=== PATIENT | male | born 1985 | race Caucasian/White ===

== ENCOUNTER 2019-12-06 01:02 | Emergency (ER) | payer MEDICAID, SELFPAY ==
[2019-12-06 01:05] VITALS: BP 134/96; PULSE 107; RESP 17; O2SAT 97; BMI 27.3
[2019-12-06 01:37] VITALS: BP 134/96; PULSE 116; RESP 19; O2SAT 99
--- NOTE | 2019-12-06 02:05 | ED_ITS ---
HPI - Back Pain/Injury General: Chief Complaint: Back Pain/Injury Stated Complaint: BACK PAIN POST FALL Time Seen by Provider: 12/06/19 01:35 History of Present Illness: HPI Narrative: Patient is a 34-year-old male comes to the ED with back pain. He says that a week ago he fell back and hit his lower back on a wooden railroad tie. States it's been sore ever since he needs taken ibuprofen and Tylenol is not helping. Denies any loss of sensation in the pelvic region or any bowel incontinence. He is able to walk and move around to the pain that shoots down both legs. Denies chest pain, shortness of breath, nausea, vomiting, abdominal pain, bowel symptoms, urine symptoms or weakness to extremities Review of Systems General: Reports: 10 or more systems reviewed and unremarkable except in HPI and below PFSH ED PFSH: Statuses (acute, chronic, etc) shown below reflect problem list status as previously entered and may not be historically accurate Social History Smoking and tobacco status: current every day smoker Physical Exam Narrative: EXAM NARRATIVE: Patient is a 34-year-old male who is showing no signs of acute distress or pain and is sitting comfortably in the bed upon entering the exam room. He was even able to ambulate. Const: COMMON NORMALS: oriented x3 HENMT: COMMON NORMALS: normocephalic HEAD & SCALP: normocephalic MOUTH: oral and palatal mucosa normal THROAT: posterior oropharynx normal and uvula midline Neck/C-Spine: COMMON NORMALS: supple GENERAL: Yes normal visual inspection Resp: COMMON NORMALS: normal respiratory effort, no retractions, no use of accessory muscles and clear to auscultation bilaterally AUSCULTATION: clear to auscultation bilaterally Cardio: COMMON NORMALS: regular rate, regular rhythm, S1 normal heart sound, S2 normal heart sound, no gallops, no clicks, no murmurs and peripheral pulses 2+ throughout RATE: regular rate RHYTHM: regular rhythm HEART SOUNDS: S1 normal and S2 normal PERIPHERAL PULSES: pulses 2+ throughout GI: COMMON NORMALS: normal to inspection, nondistended, normoactive bowel sounds, soft to palpation, non-tender and no masses PALPATION: Yes soft : COMMON NORMALS: Yes no CVA tenderness BLADDER/KIDNEY EXAM: Yes no CVA tenderness Back/Pelvis: COMMON NORMALS: no CVA tenderness LUMBAR SPINE/LOWER BACK: Yes lumbar spinal tenderness, Yes paraspinal muscle tenderness and Yes straight leg raise negative bilaterally Extremity: COMMON NORMALS: normal to inspection Neuro: COMMON NORMALS: oriented x3 and moves all extremities GAIT: Yes normal gait Course Vital Signs: Vital signs: Vital Signs Pulse Rate 99 12/06/19 03:17 Respiratory Rate 18 12/06/19 03:17 Blood Pressure 124/85 12/06/19 03:17 Pulse Oximetry 96 12/06/19 03:17 MDM - Back Pain/Injury Lab Data: Attestation: I reviewed the patient's lab results. Labs: Lab Results 12/06/19 Range/Units 01:47 Ammonia 55 (16-60) umol/L Imaging Data^: Xray Ortho: Attestation: I personally reviewed and interpreted this imaging study as follows: My impression: No acute fracture seen. Pending final radiology report. Radiologist's impression: [address] [address] XRay Report Signed Patient: Mick Smith Unit #: [id number] : 1985 Age/Sex: 34 / M ADM Date: 12/06/19 Loc: ER Room/Bed: Attending Dr: Ordering Provider/Ordering MD: Crow Tubbs Date of Service: 12/06/19 Procedure(s): XR lumbar spine 2-3V* 47120 Accession Number(s): [id number] Report Number: [id number] WS: [id number] LUMBAR SPINE: 3 VIEWS TECHNIQUE: AP, lateral and L5-S1 spot. HISTORY: injury with back pain COMPARISON: 06/11/2019 L5 anterolisthesis by 13 mm is similar to the prior study. Patient has a known grade 1 spondylolisthesis and spondylolysis at L5. 5 mm retrolisthesis of L3 and L4. Similar to the prior study. No acute fractures. Partial lumbarization of S1 on the LEFT. Mild disc space narrowing at L5-S1. Transitional S1 vertebrae. SI joints are symmetric bilaterally. No soft tissue abnormalities. XR/XR lumbar spine 2-3V* 52930 IMPRESSION: 1. Grade 1 spondylolisthesis of L5 on S1 and spondylolysis of L5 are stable and similar to 06/11/2019. 2. Transitional S1 vertebrae. 3. No acute fracture. Discharge Plan Discharge Patient Disposition: Home, Self-Care Clinical Impression: Lumbar back pain Condition: Stable Prescriptions: New ibuprofen 600 mg tablet 600 mg PO Q8H PRN (Reason: pain) Qty: 30 RF: 0 Robaxin-750 750 mg tablet 750 mg PO Q8H Qty: 20 RF: 0 No Action Depakote 500 mg Tablet,Delayed Release (Dr/Ec) 500 mg PO BID RF: 0 Risperdal 3 mg Tablet 3 mg PO BID RF: 0 alprazolam 0.5 mg Tablet 0.5 mg PO QID RF: 0 temazepam 30 mg Capsule 30 mg PO DAILY RF: 0 Protonix 40 mg Tablet,Delayed Release (Dr/Ec) 40 mg PO BID RF: 0 lisinopril 10 mg Tablet 10 mg PO BID RF: 0 ProAir HFA 90 mcg/actuation Hfa Aerosol Inhaler 2 puff INHALATION Q6H PRN (Reason: Shortness Of Breath) RF: 0 atenolol 50 mg Tablet 50 mg PO BID RF: 0 Vyvanse 20 mg Capsule 20 mg PO DAILY RF: 0 Discharge Orders: Discharge Order (Routine); Ordered 12/06/19 Ordered By: Crow Tubbs Referrals: [facility] [Other] Yamile Marsh DO [Primary Care Provider] - Discharge Diet: Regular Discharge Activity: Increase activity as tolerated Activity Restrictions/Additional Instructions: Follow-up with their primary care doctor in 7 days for reevaluation. Take ibuprofen As prescribed as needed for pain and inflammation. Take Robaxin as prescribed at night to help with back pain and comfort while sleeping. Robaxin can Be sedating/sleepy, so taking it at night before bed. Place ice and/or warm compress on back to help with symptoms. 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
--- NOTE | 2019-12-06 02:11 | XR_ITS ---
WS: [id number] LUMBAR SPINE: 3 VIEWS TECHNIQUE: AP, lateral and L5-S1 spot. HISTORY: injury with back pain COMPARISON: 06/11/2019 L5 anterolisthesis by 13 mm is similar to the prior study. Patient has a known grade 1 spondylolisthe sis and spondylolysis at L5. 5 mm retrolisthesis of L3 and L4. Similar to the prior study. No acute f ractures. Partial lumbarization of S1 on the LEFT. Mild disc space narrowing at L5-S1. Transitional S1 vertebrae. SI joints are symmetric bilaterally. No soft tissue abnormalities. XR/XR lumbar spine 2-3V* 46892 IMPRESSION: 1. Grade 1 spondylolisthesis of L5 on S1 and spondylolysis of L5 are stable an d similar to 06/11/2019. 2. Transitional S1 vertebrae. 3. No acute fracture.
[2019-12-06 02:17] LABS: Ammonia 55 umol/L (16-60)
[2019-12-06] MEDS: HYDROcodone-acetaminophen 5-325 mg Tablet 1 TAB PO (02:25)
[2019-12-06] MEDS: orphenadrine 30 mg/mL Inj 2 mL 60 MG IM (02:44)
[2019-12-06 03:17] VITALS: BP 124/85; PULSE 99; RESP 18; O2SAT 96
== END 2019-12-06 03:18 | disposition home or self-care (01) ==
PROVIDERS: Emergency Provider Physician Assistant; PCP Family Medicine
DX: M54.5 Low back pain (principal); F17.210 Nicotine dependence, cigarettes, uncomplicated
CPT/HCPCS: 36415; 72100; 82140; 96372; 99281; J2360

== ENCOUNTER 2019-12-18 03:45 | Emergency (ER) | payer MEDICAID, SELFPAY ==
[2019-12-18 03:46] VITALS: BP 119/87; PULSE 101; RESP 16; TEMP 37; O2SAT 97; BMI 27.8
--- NOTE | 2019-12-18 03:47 | ED_ITS ---
Entered by Angy Andino, acting as scribe for Chanda Fonseca MD HPI - Male Genitourinary General: Chief complaint: Urogenital-Male Stated complaint: Back Pain, Kidney issues Time Seen by Provider: 12/18/19 03:45 Source: patient and EMS Mode of arrival: EMS History of Present Illness: HPI Narrative: 34 y/o male presents to the ED with complaint of painful urination. Pt states he ate some undercooked chicken, 8 hours ago and has had V/D. Pt states those symptoms have nearly subsided but he would like his kidneys evaluated since his back hurts. Complaint: dysuria Onset (ago): hour(s) Duration: improved Location: right flank and left flank Severity: mild Quality: burning Exacerbating factors: urination Associated symptoms: Reports dysuria and vomiting Review of Systems Const: Denies: fever, chills, body aches or change in appetite Eyes: Denies: blurry vision or eye discomfort ENMT: Denies: throat pain or dental pain Card: Denies: chest pain Resp: Denies: shortness of breath GI: Reports: vomiting and diarrhea : Reports: painful urination Musc: Reports: back pain; Denies: neck pain Skin/Breast: Denies: rash Neuro: Denies: headache Psych: Denies: depression Maxwell/Lymph: Denies: easy bruising All/Imm: Denies: hives PFSH ED PFSH: Statuses (acute, chronic, etc) shown below reflect problem list status as previously entered and may not be historically accurate Social History Smoking and tobacco status: current every day smoker Physical Exam Const: COMMON NORMALS: no apparent distress and oriented x3 HENMT: COMMON NORMALS: normocephalic and head/scalp atraumatic HEAD & SCALP: normocephalic and atraumatic Eye: COMMON NORMALS: PERRL and EOMs intact bilaterally PUPIL: Yes PERRL Neck/C-Spine: COMMON NORMALS: full ROM and supple Chest: COMMONS NORMALS: inspection of chest normal and palpation of chest normal Resp: COMMON NORMALS: normal respiratory effort, no retractions, no use of accessory muscles and clear to auscultation bilaterally AUSCULTATION: clear to auscultation bilaterally Cardio: COMMON NORMALS: regular rate, regular rhythm and no murmurs RATE: regular rate RHYTHM: regular rhythm GI: COMMON NORMALS: normal to inspection, nondistended, normoactive bowel sounds, soft to palpation, non-tender and no masses PALPATION: Yes soft Extremity: COMMON NORMALS: normal to inspection and full ROM Neuro: COMMON NORMALS: oriented x3, moves all extremities and no focal motor deficits Psych: COMMON NORMALS: cooperative and speech normal SPEECH: Yes normal speech Skin: COMMON NORMALS: no rashes or lesions noted and no wounds GENERAL SKIN EXAM: no rashes or lesions noted Course Vital Signs: Vital signs: Vital Signs Temperature 98.6 F 12/18/19 03:46 Pulse Rate 101 H 12/18/19 03:46 Respiratory Rate 16 12/18/19 03:46 Blood Pressure 119/87 12/18/19 03:46 Pulse Oximetry 97 12/18/19 03:46 MDM - Male MDM Narrative: Medical decision making narrative: Patient presents here with vomiting and diarrhea. Patient had some flank pain and urinalysis and electrolytes are normal. Patient is well-appearing here and has no signs of acute surgical cause for his pain. Patient prescribed Zofran and he is stable for discharge. He is to follow-up with his primary care doctor in 3 to 5 days and return if worsening. Lab Data: Labs: Lab Results 12/18/19 12/18/19 Range/Units 03:55 04:04 Sodium 136 (136-145) mmol/L Potassium 4.1 (3.5-5.1) mmol/L Chloride 99 (98-107) mmol/L Carbon Dioxide 26 (22-29) mmol/L Anion Gap 15.1 (5-19) BUN 6 (6-20) mg/dL Creatinine 0.6 L (0.7-1.2) mg/dL GFR Calculation 155.2 H (90-130) mL/min Glucose 113 H (74-109) mg/dL Calculated Osmolal ity 279 L (285-295) mOsm/k g Calcium 9.3 (8.5-10.5) mg/dL Urine Color Yellow (Yellow) Urine Appearance Clear (CLEAR) Urine pH 8 H (5-7) Ur Specific Gravit y 1.015 (1.005-1.030) Urine Protein Neg (Negative) Urine Glucose (UA) Norm (Normal) Urine Ketones Negative (Negative) Urine Occult Blood Neg (Negative) Urine Nitrate Negative (Negative) Urine Bilirubin Neg (NEGATIVE) Prot Sulfosalicyli c Acd Negative Urine Urobilinogen Norm (Negative) mg/dL Ur Leukocyte [place] ase Negative (Negative) Discharge Plan Discharge Patient Disposition: Home, Self-Care Clinical Impression: Vomiting, Diarrhea Condition: Stable Prescriptions: New Zofran 4 mg tablet 4 mg PO QID PRN (Reason: nausea and vomiting) Qty: 14 RF: 0 No Action divalproex [Depakote] 500 mg Tablet,Delayed Release (Dr/Ec) 500 mg PO BID RF: 0 risperidone [Risperdal] 3 mg Tablet 3 mg PO BID RF: 0 alprazolam 0.5 mg Tablet 0.5 mg PO QID RF: 0 temazepam 30 mg Capsule 30 mg PO DAILY RF: 0 pantoprazole [Protonix] 40 mg Tablet,Delayed Release (Dr/Ec) 40 mg PO BID RF: 0 lisinopril 10 mg Tablet 10 mg PO BID RF: 0 albuterol sulfate [ProAir HFA] 90 mcg/actuation Hfa Aerosol Inhaler 2 puff INHALATION Q6H PRN (Reason: Shortness Of Breath) RF: 0 atenolol 50 mg Tablet 50 mg PO BID RF: 0 Vyvanse 20 mg Capsule 20 mg PO DAILY RF: 0 ibuprofen 600 mg tablet 600 mg PO Q8H PRN (Reason: pain) Qty: 30 RF: 0 methocarbamol [Robaxin-750] 750 mg tablet 750 mg PO Q8H Qty: 20 RF: 0 Discharge Orders: Discharge Order (Routine); Ordered 12/18/19 Ordered By: Chanda Fonseca Referrals: [facility] [Other] Yamile Marsh DO [Primary Care Provider] - 4-7 days Discharge Diet: Advance as tolerated Discharge Activity: Resume usual activity Patient Instructions: Gastroenteritis (ED) Coding Level of Care Code ED Stock Roller for Chg Fwd Exam Problem Focused The documentation recorded by the Sina genao Ashley, accurately reflects the service I personally performed and the decisions made by Raymundo ramirez Korby, MD Dec 18, 2019 03:45
[2019-12-18] MEDS: diphenoxylate/atropine Tablet 1 TAB PO (04:04)
[2019-12-18] MEDS: ondansetron 4 MG Tablet PO (04:04)
[2019-12-18 04:28] LABS: Specific Gravity, Urine 1.015 (1.005-1.030); Urine Appearance Clear (CLEAR); Urine Color Yellow (Yellow); pH Urine 8 (5-7)
[2019-12-18 04:29] LABS: Bilirubin Urine Neg (NEGATIVE); Blood Urine Neg (Negative); Glucose Urine UA Norm (Normal); Ketones Urine Negative (Negative); Leukocyte Esterase Urine Negative (Negative); Nitrate Urine Negative (Negative); Protein Urine Neg (Negative); Sulfosalicylic Acid Urine Negative; Urobilinogen Urine Norm (Negative)
[2019-12-18 04:32] LABS: Anion Gap 15.1 (5-19); Blood Urea Nitrogen 6 mg/dL (6-20); Calcium 9.3 mg/dL (8.5-10.5); Carbon Dioxide 26 mmol/L (22-29); Chloride 99 mmol/L (98-107); Glomerular Filtration Rate 155.2 mL/min (90-130); Glucose 113 mg/dL (74-109); Osmolality Calculated 279 mOsm/kg (285-295); Potassium 4.1 mmol/L (3.5-5.1); Sodium 136 mmol/L (136-145)
[2019-12-18] MEDS: acetaminophen 325 mg Tablet 650 MG PO (04:48)
[2019-12-18 04:56] VITALS: BP 119/78; PULSE 89; RESP 16; O2SAT 95
== END 2019-12-18 04:58 | disposition home or self-care (01) ==
PROVIDERS: Emergency Provider Emergency Medicine; PCP Family Medicine
DX: R11.10 Vomiting, unspecified (principal); R19.7 Diarrhea, unspecified; F17.200 Nicotine dependence, unspecified, uncomplicated
CPT/HCPCS: 36415; 80048; 81001; 99281; 99283; Q0162

== ENCOUNTER 2020-01-09 20:21 | Emergency (ER) | payer MEDICAID, SELFPAY ==
[2020-01-09 20:23] VITALS: BP 137/87; PULSE 102; RESP 18; TEMP 36.4; O2SAT 98; BMI 28.1
--- NOTE | 2020-01-09 20:30 | ED_ITS ---
Entered by Johanny Wray, acting as scribe for Laura Real MD HPI - Psych General: Chief Complaint: Psychiatric Symptoms Stated Complaint: SI/HEARING VOICES Time Seen by Provider: 01/09/20 20:28 Source: patient, EMS and RN notes reviewed Mode of arrival: EMS Limitations: no limitations History of Present Illness: HPI Narrative: 34 yo male presents to ED stating he is having auditory hallucinations and a headache. The patient denies suicidal ideation. The patient states his psychiatrist took the patient off of Risperdal and he began hearing voices. He said he has had problem with high ammonia levels in the past due to encephalopathy and when his ammonia gets high, he will have severe headaches. complaint: feels depressed Onset (ago): day(s) (3-4) Duration: constant History of same: Yes Relieving factors: medication Exacerbating factors: other (out of medication) Context: new medication(s) Associated psychiatric symptoms: auditory hallucinations Associated symptoms: Reports auditory hallucinations and other (headache) Treatments prior to arrival: none Review of Systems Neuro: Reports: headache Psych: Reports: auditory hallucinations PFSH ED PFSH: Social History Smoking and tobacco status: current every day smoker Physical Exam Const: COMMON NORMALS: no apparent distress, oriented x3, alert and well nourished HENMT: COMMON NORMALS: normocephalic and external nose normal HEAD & SCALP: normocephalic NOSE: external nose normal MOUTH: no trismus Eye: COMMON NORMALS: EOMs intact bilaterally and conjunctivae normal CONJUNCTIVA: Yes conjunctivae normal Neck/C-Spine: COMMON NORMALS: full ROM, no lymphadenopathy and supple CERVICAL SPINE: Yes cervical ROM normal Lymph: LYMPHATIC: no lymphadenopathy noted Resp: COMMON NORMALS: normal respiratory effort, no retractions, no use of accessory muscles and clear to auscultation bilaterally EFFORT & INSPECTION: Yes able to speak in complete sentences AUSCULTATION: clear to auscultation bilaterally Cardio: COMMON NORMALS: regular rate and regular rhythm RATE: regular rate RHYTHM: regular rhythm GI: COMMON NORMALS: normal to inspection, nondistended, normoactive bowel sounds, soft to palpation, non-tender and no masses INSPECTION: Yes normal to inspection AUSCULTATION: Yes normoactive bowel sounds PALPATION: Yes soft, No guarding and No rigid Back/Pelvis: OTHER: Normal range of motion Extremity: GENERAL: Yes normal exam except as noted Neuro: COMMON NORMALS: oriented x3 and CN's II-XII intact bilaterally SENSORIUM/ORIENTATION: Yes alert SPEECH: speech normal Psych: COMMON NORMALS: mental status grossly normal Skin: COMMON NORMALS: no rashes or lesions noted GENERAL SKIN EXAM: no rashes or lesions noted MDM - Psych MDM Narrative: Medical decision making narrative: 34-year-old with history of auditory hallucinations that was taken off his Risperdal abruptly which resulted in increase hallucinations he is now back on the Risperdal after talking with poison control. He is not suicidal or homicidal he is not manic. He is medically stable alert and oriented and appropriately conversant. He does have at incidental headache and usually takes Fiorinal or Fioricet for that. I told him I am willing to write for a small amount but he needs to follow-up with his doctor for further treatment of his intermittent headaches. Lab Data: Attestation: I reviewed the patient's lab results. Labs: Lab Results 01/09/20 01/09/20 01/09/20 Range/Units 20:30 20:31 20:37 WBC 9.6 (4.0-10.0) 10^3/ uL RBC 4.57 (4.1-5.3) 10^6/u L Hgb 14.9 (11.7-16.6) g/dL Hct 42.1 (42.0-52.0) % MCV 92.1 (80-94) fL MCH 32.6 (28.0-34.0) pg MCHC 35.4 (30.0-36.0) g/dL RDW 11.9 L (12.1-15.1) % Plt Count 272 (130-400) 10^3/c mm MPV 9.0 (7.4-10.4) fL Neut % (Auto) 51.4 % Lymph % (Auto) 37.7 % [place] % (Auto) 7.5 % Eos % (Auto) 2.7 % Baso % (Auto) 0.4 % Neut # (Auto) 4.9 (1.8-7.7) 10^3/u L Lymph # (Auto) 3.6 (0.8-4.8) 10^3/u L [place] # (Auto) 0.7 (0.2-0.9) 10^3/u L Eos # (Auto) 0.3 (0.0-0.8) 10^3/u L Baso # (Auto) 0.0 (0.0-0.1) 10^3/u L Nucleated RBC % (a uto) 0 % Nucleated RBCs # 0.0 /100WBC Sodium 136 (136-145) mmol/L Potassium 3.7 (3.5-5.1) mmol/L Chloride 98 (98-107) mmol/L Carbon Dioxide 24 (22-29) mmol/L Anion Gap 17.7 (5-19) BUN 7 (6-20) mg/dL Creatinine 0.6 L (0.7-1.2) mg/dL GFR Calculation 155.2 H (90-130) mL/min Glucose 99 (65-115) mg/dL Calcium 9.9 (8.5-10.5) mg/dL Total Bilirubin 0.6 (0.15-1.2) mg/dL AST 40 (0-40) U/L ALT 72 H (0-41) U/L Alkaline Phosphata se 82 (40-130) IU/L Ammonia 33 (16-60) umol/L Total Protein 7.5 (6.6-8.7) g/dL Albumin 4.6 (3.5-5.2) g/dL Globulin 2.9 (1.3-4.6) g/dL Ethyl Alcohol < 10 (0-10) mg/dL Discharge Plan Discharge Patient Disposition: Home, Self-Care Clinical Impression: Auditory hallucinations Headache Qualifiers: Headache type: unspecified Headache chronicity pattern: unspecified pattern Intractability: not intractable Qualified Code(s): R51 - Headache Condition: Stable Prescriptions: New xumznbtqbj-ijdxjteulb-itg-cod [id number] mg capsule 1 cap PO Q4H PRN (Reason: pain) Qty: 7 RF: 0 No Action divalproex [Depakote] 500 mg Tablet,Delayed Release (Dr/Ec) 500 mg PO BID RF: 0 risperidone [Risperdal] 3 mg Tablet 3 mg PO BID RF: 0 alprazolam 0.5 mg Tablet 0.5 mg PO QID RF: 0 temazepam 30 mg Capsule 30 mg PO DAILY RF: 0 pantoprazole [Protonix] 40 mg Tablet,Delayed Release (Dr/Ec) 40 mg PO BID RF: 0 lisinopril 10 mg Tablet 10 mg PO BID RF: 0 albuterol sulfate [ProAir HFA] 90 mcg/actuation Hfa Aerosol Inhaler 2 puff INHALATION Q6H PRN (Reason: Shortness Of Breath) RF: 0 atenolol 50 mg Tablet 50 mg PO BID RF: 0 Vyvanse 20 mg Capsule 20 mg PO DAILY RF: 0 ibuprofen 600 mg tablet 600 mg PO Q8H PRN (Reason: pain) Qty: 30 RF: 0 methocarbamol [Robaxin-750] 750 mg tablet 750 mg PO Q8H Qty: 20 RF: 0 ondansetron HCl [Zofran] 4 mg tablet 4 mg PO QID PRN (Reason: nausea and vomiting) Qty: 14 RF: 0 Referrals: [facility] [Other] Yamile Marsh DO [Primary Care Provider] - Patient Instructions: Headache Coding Level of Care Code ED Clinical Research Management Associate for Chg Fwd Exam Comprehensive The documentation recorded by the Nils genao Valerie R, accurately reflects the service I personally performed and the decisions made by Farhan ramirez Megan, MD Jan 09, 2020 20:21
[2020-01-09 20:43] LABS: Basophils % 0.4 %; Eosinophils # 0.3 10^3/uL (0.0-0.8); Eosinophils % 2.7 %; Hematocrit 42.1 % (42.0-52.0); Hemoglobin 14.9 g/dL (11.7-16.6); Lymphocytes # 3.6 10^3/uL (0.8-4.8); Lymphocytes % 37.7 %; Mean Corpuscular HGB Conc 35.4 g/dL (30.0-36.0); Mean Corpuscular Hemoglobin 32.6 pg (28.0-34.0); Mean Corpuscular Volume 92.1 fL (80-94); Monocytes # 0.7 10^3/uL (0.2-0.9); Monocytes % 7.5 %; Neutrophils # 4.9 10^3/uL (1.8-7.7); Neutrophils % 51.4 %; Nucleated Red Blood Cells % 0 %; Platelet Count 272 10^3/cmm (130-400); Red Blood Count 4.57 10^6/uL (4.1-5.3); Red Cell Distribution Width 11.9 % (12.1-15.1); White Blood Count 9.6 10^3/uL (4.0-10.0)
[2020-01-09 21:12] LABS: Ammonia 33 umol/L (16-60)
[2020-01-09 21:42] LABS: Alanine Aminotransferase 72 U/L (0-41); Albumin Level 4.6 g/dL (3.5-5.2); Alkaline Phosphatase 82 IU/L (40-130); Anion Gap 17.7 (5-19); Aspartate Amino Transferase 40 U/L (0-40); Blood Urea Nitrogen 7 mg/dL (6-20); Calcium 9.9 mg/dL (8.5-10.5); Carbon Dioxide 24 mmol/L (22-29); Chloride 98 mmol/L (98-107); Globulin 2.9 g/dL (1.3-4.6); Glomerular Filtration Rate 155.2 mL/min (90-130); Glucose 99 mg/dL (65-115); Potassium 3.7 mmol/L (3.5-5.1); Sodium 136 mmol/L (136-145); Total Bilirubin 0.6 mg/dL (0.15-1.2); Total Protein 7.5 g/dL (6.6-8.7)
[2020-01-09 21:45] LABS: Alcohol Level < 10 mg/dL (0-10)
[2020-01-09 22:05] VITALS: RESP 18
[2020-01-09] MEDS: morphine 4 mg/mL SDV 1 mL IM (22:05)
[2020-01-09 22:21] VITALS: BP 137/87; PULSE 100; RESP 18; TEMP 36.7; O2SAT 98
== END 2020-01-09 22:22 | disposition home or self-care (01) ==
PROVIDERS: Emergency Provider Emergency Medicine; PCP Family Medicine
DX: R44.0 Auditory hallucinations (principal); R51 Headache; F17.200 Nicotine dependence, unspecified, uncomplicated
CPT/HCPCS: 36415; 80053; 80307; 82140; 85025; 96372; 99284; J2270

== ENCOUNTER 2020-01-17 15:40 | Outpatient (CLI) | payer MEDICAID, SELFPAY ==
--- NOTE | 2020-01-17 15:49 | CT_ITS ---
WS: [id number] CT CERVICAL SPINE TECHNIQUE: Noncontrast CT of the cervical spine with coronal and sagittal reformatted images. CLINICAL INFORMATION: INTERVERTEBRAL DISC DISORDER COMPARISON: CT January 14, 2011 DLP: 1661.[address] scans at [facility] use at least one of these dose optimization techniques: automat ed exposure control; mA and/or kV adjustment per patient size (includes targeted exams where dose is matched to clinical indication); or iterative reconstruction. FINDINGS: Straightening of the normal cervical lordosis. Prior postoperative changes anterior cervical fusion w ith interbody fusion C5-C6. Subsidence along the interbody fusion graft. No evidence of hardware loos ening. C2-C3: Normal. C3-C4: Mild facet arthropathy. Mild bilateral bony foraminal narrowing. Spinal canal is patent. C4-C5: Mild facet arthropathy. Spinal canal and foramen are patent. C5-C6: ACDF. Subsidence along the interbody fusion graft. Mild right and no significant left foramina l narrowing. Mild facet arthropathy. C6-C7: Disc osteophytic ridging. Spinal canal is patent. Mild left and no significant right foraminal narrowing. Mild facet arthropathy. C7-T1: Mild bilateral bony foraminal narrowing. Spinal canal is patent. Visualized posterior nasopharynx: Normal. Prevertebral soft tissues: Normal. CT/CT cervical spin wo con* [id number] IMPRESSION: 1. Straightening of the normal cervical lordosis. 2. Prior postoperative changes ACDF C5-C6. Subsidence along the interbody fusi on graft. No significant bony bridging beyond the confines of the graft. 3. No evidence of hardware loosening. Hardware appears in good position. 4. Mild bony foraminal narrowing described above worse at right C5-C6 and left C6-C7.
--- NOTE | 2020-01-17 15:49 | CT_ITS ---
WS: [id number] CT LUMBAR SPINE TECHNIQUE: Noncontrast CT of the lumbar spine with coronal and sagittal reformatted images. CLINICAL INFORMATION: INTERVERTERAL DISC DISORDER COMPARISON: MRI July 18, 2019 DLP: 1895.[address] scans at [facility] use at least one of these dose optimization techniques: automat ed exposure control; mA and/or kV adjustment per patient size (includes targeted exams where dose is matched to clinical indication); or iterative reconstruction. FINDINGS: Stable grade 1 anterolisthesis L5 on S1 with bilateral spondylolysis. Mild lumbar curve. No acute com pression fractures. L1-L2: Normal. L2-L3: Mild annular bulging. Spinal canal and foramen are patent. L3-L4: Mild annular bulging with mild central canal stenosis. Slight effacement of ventral thecal sac . Mild facet arthropathy. Foramen are patent. L4-L5: Mild disc bulging with a small shallow left pericentral protrusion. Mild central canal stenosi s. Slight narrowing of the left subarticular recess. Mild facet arthropathy. Mild left foraminal narr owing L5-S1: Stable grade 1 anterolisthesis. Bilateral chronic spondylolysis. Disc bulging eccentric to the left with slight effacement of ventral thecal sac. Severe bilateral foraminal narrowing left greater than right. Mild facet arthropathy. S1 is partially lumbarized. Visualized pelvic bony structures: Normal. Paravertebral soft tissues: Normal. CT/CT lumbar spine wo con* [id number] IMPRESSION: 1. Stable grade 1 anterolisthesis L5 on S1 with bilateral spondylolysis. 2. Mild central canal stenosis L3-4 with narrowing of the subarticular recess is unchanged. 3. Tiny left pericentral protrusion L4-5 with mild central canal stenosis and narrowing of the left subarticular recess. Mild left L4-5 foraminal narrowing. 4. Mild to moderate facet arthropathy L3-L4 and L4-L5. 5. Severe bilateral foraminal narrowing L5-S1
--- NOTE | 2020-01-17 15:50 | XR_ITS ---
WS: [id number] LUMBAR SPINE FLEXION AND EXTENSION TECHNIQUE: 3 views of the lumbar spine: Lateral neutral, flexion, and extension views. CLINICAL INFORMATION: INTERVERTEBRAL DISC DISORDER FINDINGS: Grade 1 anterolisthesis L5 on S1 measuring 12 mm in the neutral position. Chronic bilateral pars defe cts. This increases slightly on flexion to 14.6 mm and decreases on extension to 12.2 mm. Moderate to advanced facet arthropathy lower lumbar spine. S1 is partially lumbarized.. XR/XR lumbar spine f/e only [id number] IMPRESSION: 1. Mild instability L5-S1 with grade 1 anterolisthesis and bilateral spondylol ysis.
== END 2020-01-17 15:41 | disposition home or self-care (01) ==
LOC: RADWPI 15:46
PROVIDERS: PCP Family Medicine; Visit Provider Licensed Practical Nurse
DX: M51.17 Intervertebral disc disorders with radiculopathy, lumbosacral region (principal); M53.2X7 Spinal instabilities, lumbosacral region; M47.896 Other spondylosis, lumbar region; M48.061 Spinal stenosis, lumbar region without neurogenic claudication; M51.26 Other intervertebral disc displacement, lumbar region
CPT/HCPCS: 72120; 72125; 72131

== ENCOUNTER 2020-03-02 19:09 | Emergency (ER) | payer MEDICAID, SELFPAY ==
[2020-03-02 19:10] VITALS: BP 128/65; PULSE 91; RESP 16; TEMP 36.7; O2SAT 95; BMI 28.7
--- NOTE | 2020-03-02 19:20 | W.ED.GENADLT ---
HPI - General Adult General: Chief complaint: General Medical Stated complaint: med withdrawl Time Seen by Provider: 03/02/20 19:12 Source: patient and EMS Mode of arrival: EMS Limitations: no limitations History of Present Illness: HPI narrative: 34-year-old male who states he was fired by his PCP a couple weeks ago and is ran out of his codeine along with his Xanax and Vyvanse. He states he needs refills for all 3. Patient shows no withdrawal signs. He states that he feels anxious though without these medicines. Associated symptoms: Deny chest pain, dyspnea, headache(s), nausea, rash or vomiting Review of Systems Const: Denies: fever, chills, body aches or change in appetite Eyes: Denies: blurry vision or eye discomfort ENMT: Denies: throat pain or dental pain Card: Denies: chest pain Resp: Denies: shortness of breath GI: Denies: abdominal pain, nausea, vomiting or diarrhea : Denies: painful urination Musc: Denies: neck pain or back pain Skin/Breast: Denies: rash Neuro: Denies: headache Psych: Denies: depression Maxwell/Lymph: Denies: easy bruising All/Imm: Denies: hives PFSH ED PFSH: Medical History Intervertebral disc disorder with radiculopathy of lumbosacral region Spondylolisthesis, lumbosacral region Surgical History History of appendectomy History of fusion of cervical spine 2009 Dr. Beth Andino C5-C6 ACDFF History of knee surgery Family History Family/Other Heart disease Grandfather Dementia Social History Smoking and tobacco status: current every day smoker Alcohol intake: current Household members: spouse Marital status: Current occupational status: unemployed History of recent travel: No Physical Exam Const: COMMON NORMALS: no apparent distress, oriented x3 and healthy appearing HENMT: COMMON NORMALS: normocephalic and head/scalp atraumatic HEAD & SCALP: normocephalic and atraumatic Eye: COMMON NORMALS: PERRL and EOMs intact bilaterally PUPIL: Yes PERRL Neck/C-Spine: COMMON NORMALS: full ROM and supple Chest: COMMONS NORMALS: inspection of chest normal and palpation of chest normal Resp: COMMON NORMALS: normal respiratory effort, no retractions, no use of accessory muscles and clear to auscultation bilaterally AUSCULTATION: clear to auscultation bilaterally Cardio: COMMON NORMALS: regular rate, regular rhythm and no murmurs RATE: regular rate RHYTHM: regular rhythm GI: COMMON NORMALS: normal to inspection, nondistended, normoactive bowel sounds, soft to palpation, non-tender and no masses PALPATION: Yes soft Extremity: COMMON NORMALS: normal to inspection and full ROM Neuro: COMMON NORMALS: oriented x3, moves all extremities and no focal motor deficits Psych: COMMON NORMALS: mental status grossly normal, thought process normal and cooperative THOUGHT PROCESS: normal thought process Skin: COMMON NORMALS: no rashes or lesions noted and no wounds GENERAL SKIN EXAM: no rashes or lesions noted Course Vital Signs: Vital signs: Vital Signs Temperature 98.1 F 03/02/20 19:10 Pulse Rate 91 03/02/20 19:10 Respiratory Rate 16 03/02/20 19:10 Blood Pressure 128/65 03/02/20 19:10 Pulse Oximetry 95 03/02/20 19:10 MDM - General Adult MDM Narrative: Medical decision making narrative: Patient presents here wanting medication refill. Was able to refill his Vyvanse but not his Xanax or Geodon. Patient has no signs of withdrawal. Patient is stable for discharge and is to follow-up with primary care doctor in 3 to 5 days and return if worsening. Discharge Plan Discharge Patient Disposition: Home, Self-Care Clinical Impression: Medication refill Condition: Stable Prescriptions: New Vyvanse 20 mg capsule 20 mg PO DAILY Qty: 20 RF: 0 No Action divalproex [Depakote] 500 mg Tablet,Delayed Release (Dr/Ec) 500 mg PO BID RF: 0 risperidone [Risperdal] 3 mg Tablet 3 mg PO BID RF: 0 alprazolam 0.5 mg Tablet 0.5 mg PO QID RF: 0 temazepam 30 mg Capsule 30 mg PO DAILY RF: 0 pantoprazole [Protonix] 40 mg Tablet,Delayed Release (Dr/Ec) 40 mg PO BID RF: 0 lisinopril 10 mg Tablet 10 mg PO BID RF: 0 albuterol sulfate [ProAir HFA] 90 mcg/actuation Hfa Aerosol Inhaler 2 puff INHALATION Q6H PRN (Reason: Shortness Of Breath) RF: 0 atenolol 50 mg Tablet 50 mg PO BID RF: 0 Vyvanse 20 mg Capsule 20 mg PO DAILY RF: 0 ibuprofen 600 mg tablet 600 mg PO Q8H PRN (Reason: pain) Qty: 30 RF: 0 methocarbamol [Robaxin-750] 750 mg tablet 750 mg PO Q8H Qty: 20 RF: 0 ondansetron HCl [Zofran] 4 mg tablet 4 mg PO QID PRN (Reason: nausea and vomiting) Qty: 14 RF: 0 hrcxsqtesb-flsphtucbd-cfe-cod [id number] mg capsule 1 cap PO Q4H PRN (Reason: pain) Qty: 7 RF: 0 Discharge Orders: Discharge Order (Routine); Ordered 03/02/20 Ordered By: Chanda Fonseca Referrals: [facility] [Other] Yamile Marsh DO [Primary Care Provider] - Discharge Diet: Advance as tolerated Discharge Activity: Resume usual activity Patient Instructions: Opioid Withdrawal (ED) Discharge Date/Time: 03/02/20 19:55 Coding Level of Care Code ED Visual Supervisor for Kellyg Fwd Exam Comprehensive
[2020-03-02] MEDS: ALPRAZolam 0.5 mg Tablet 1 MG PO (19:42)
[2020-03-02] MEDS: HYDROcodone-acetaminophen 5-325 mg Tablet 1 TAB PO (19:48)
== END 2020-03-02 19:55 | disposition home or self-care (01) ==
LOC: ER 19:28
PROVIDERS: Emergency Provider Emergency Medicine; PCP Family Medicine
DX: Z76.0 Encounter for issue of repeat prescription (principal); Z98.1 Arthrodesis status; Z82.49 Family history of ischemic heart disease and other diseases of the circulatory system; F17.210 Nicotine dependence, cigarettes, uncomplicated
CPT/HCPCS: 12345; 99282; 99283

== ENCOUNTER → 2020-03-04 08:27 | Outpatient (BNVA) | payer MEDICAID, SELFPAY | PROVIDERS: PCP Family Medicine; Visit Provider Psychiatry & Neurology Psychiatry | DX: F43.12 Post-traumatic stress disorder, chronic (principal); F41.1 Generalized anxiety disorder; F60.9 Personality disorder, unspecified | CPT/HCPCS: 99214 ==

== ENCOUNTER 2020-03-18 03:45 | Emergency (ER) | payer MEDICAID, SELFPAY ==
[2020-03-18] VITALS (7 sets, daily range): BP systolic 109–129; BP diastolic 68–96; PULSE 64–88; RESP 12–18; TEMP 36.9; O2SAT 95–98; BMI 27.3
--- NOTE | 2020-03-18 03:49 | XR_ITS ---
WS: [id number] XR chest 1V portable [id number] REASON FOR EXAM: SYNCOPE FINDINGS: The heart and mediastinal interfaces normal. The lung [place] are well aerated no pulmonary edema, pneumonia, pleural effusion, no pneumothorax. The hilum and apices normal. No osseous abnormalities. XR/XR chest 1V portable [id number] IMPRESSION: Negative chest for acute findings.
--- NOTE | 2020-03-18 03:50 | ECG_ITS ---
Measurements Intervals [place] Rate: 74 P: 50 CT: 151 QRS: 36 QRSD: 102 T: 32 QT: 352 QTc: 391 SINUS RHYTHM POSSIBLE LEFT ATRIAL ENLARGEMENT [-0.1mV P WAVE IN V1/V2] POSSIBLE RIGHT VENTRICULAR CONDUCTION DELAY [RSR (QR) IN V1/V2] Compared to ECG 04/20/2019 03:21:56 No significant changes Electronically Signed On 03-18-2020 17:10:45 CDT by Becca Farris M.D. [email or web address]
--- NOTE | 2020-03-18 03:54 | ED_ITS ---
Documented by User: Berta Alonso 03/18/20 06:11 HPI - Syncope General: Chief Complaint: Syncope Stated Complaint: PASSED OUT Time Seen by Provider: 03/18/20 03:48 History of Present Illness: HPI narrative: Mick is a 34-year-old male who comes in complaining of a syncopal spell at home. He states he has been out of his medications for about 2 weeks as he lost his doctor and has been unable to establish with a new doctor due to the coronavirus pandemic. Patient states that his biggest concern is he is out of his Xanax. He states he feels very anxious. Tonight he said he was texting his when he felt the sudden onset of palpitations and his found him laying in the bed with his eyes rolled back in his head. She was in almost immediately after he stopped texting and did not describe any seizure activity. He was alert and oriented shortly after she stimulated him. He denies any current symptoms such as chest pain, shortness of breath, or otherwise. He does complain of a headache but otherwise has no complaints. Associated symptoms: Deny abdominal pain, chest pain, fever(s), headache(s), nausea or vertigo Review of Systems General: Reports: other (negative unless marked) Const: Denies: fever, chills, body aches, fatigue, malaise or diaphoresis Eyes: Denies: change in vision or blurry vision ENMT: Denies: throat pain, painful swallowing, hoarseness, ear pain, ear discharge, Change in hearing or nasal discharge Card: Reports: syncope; Denies: chest pain, palpitations, irregular heart rhythm, pre-syncope, shortness of breath on exertion or shortness of breath when lying down Resp: Denies: shortness of breath, productive cough, non-productive cough, wheezing, coughing up blood or chest congestion GI: Denies: abdominal pain, nausea, vomiting, vomiting blood, coffee grounds in vomit, diarrhea, constipation, cramping, blood in stool or black tarry stool : Denies: flank pain, difficulty urinating, painful urination, urinary frequency, urinary urgency, decreased urine ouput, urinary incontinence or blood in urine Musc: Denies: neck pain, back pain, extremity pain, extremity swelling, joint pain, joint swelling, joint warmth or joint stiffness Skin/Breast: Denies: rash, skin tenderness or yellow skin Neuro: Denies: headache, numbness in extremities, weakness in extremities, changes in sensation, lack of coordination, difficulty walking, dizziness, vertigo or confusion Endo: Denies: excessive thirst, tired all the time, cold intolerance, excessive sweating, flushing or hot flashes Maxwell/Lymph: Denies: easy bruising, easy bleeding, petechiae or enlarged lymph nodes All/Imm: Denies: hives, throat swelling, tongue swelling, facial swelling or acute wheezing PFSH ED PFSH: Medical History Intervertebral disc disorder with radiculopathy of lumbosacral region Spondylolisthesis, lumbosacral region Surgical History History of appendectomy History of fusion of cervical spine 2009 Dr. Beth Andino C5-C6 ACDFF History of knee surgery Family History Family/Other Heart disease Grandfather Dementia Social History Smoking and tobacco status: current every day smoker Alcohol intake: current Household members: spouse Marital status: Current occupational status: unemployed History of recent travel: No Physical Exam Const: COMMON NORMALS: no apparent distress, oriented x3, no limitations, healthy appearing and well nourished EXAM LIMITATIONS: no altered mental status GENERAL APPEARANCE: cooperative, well kempt and well developed ORIENTATION/CONSCIOUSNESS: Yes awake HENMT: COMMON NORMALS: normocephalic, head/scalp atraumatic, hearing grossly normal bilaterally, external ears normal, EAC's normal, external nose normal and moist oral mucous membranes HEAD & SCALP: normal to inspection, normocephalic and atraumatic FACE & SINUS: normal facial exam and face symmetric NOSE: external nose normal and nares normal EXTERNAL EAR: Yes external ears normal EXTERNAL AUDITORY CANAL: EAC's normal MOUTH: oral and palatal mucosa normal and tongue normal Eye: COMMON NORMALS: PERRL, EOMs intact bilaterally, conjunctivae normal and no scleral icterus GENERAL EYE: normal appearance of both eyes and normal light reflex CONJUNCTIVA: Yes conjunctivae normal SCLERA: sclerae normal CORNEA: Yes corneas normal PUPIL: Yes PERRL DIRECT OPHTHALMOSCOPY: Yes normal light reflex Neck/C-Spine: COMMON NORMALS: full ROM, no lymphadenopathy, supple, no meningeal signs and no JVD GENERAL: Yes normal visual inspection and Yes trachea midline CERVICAL SPINE: Yes cervical ROM normal Chest: COMMONS NORMALS: inspection of chest normal and palpation of chest normal Resp: COMMON NORMALS: normal respiratory effort, no retractions, no use of accessory muscles and clear to auscultation bilaterally EFFORT & INSPECTION: Yes able to speak in complete sentences AUSCULTATION: clear to auscultation bilaterally Cardio: COMMON NORMALS: no JVD, regular rate, regular rhythm, S1 normal heart sound, S2 normal heart sound, no gallops, no clicks, no murmurs and no rub JUGULAR VENOUS DISTENTION: no JVD RATE: regular rate RHYTHM: regular rhythm HEART SOUNDS: S1 normal and S2 normal GI: COMMON NORMALS: soft to palpation, non-tender, no hepatosplenomegaly and no masses INSPECTION: Yes normal to inspection PALPATION: Yes soft and Yes no hepatosplenomegaly : COMMON NORMALS: Yes no CVA tenderness BLADDER/KIDNEY EXAM: Yes no CVA tenderness Back/Pelvis: COMMON NORMALS: no CVA tenderness, thoracic and lumbar spine normal to inspection, no thoracic nor lumbar tenderness and thoraco-lumbar ROM normal Extremity: COMMON NORMALS: normal to inspection, full ROM, normal capillary refill, no joint enlargement, no clubbing, cyanosis or edema and no calf tenderness Neuro: COMMON NORMALS: oriented x3, CN's II-XII intact bilaterally, moves all extremities, no focal motor deficits and no sensory deficits noted MENINGEAL SIGNS: Yes no meningeal signs Psych: COMMON NORMALS: mental status grossly normal, thought process normal, cooperative, affect normal, speech normal and activity/motor behavior normal APPEARANCE: Yes well kempt SPEECH: Yes normal speech THOUGHT PROCESS: normal thought process Skin: COMMON NORMALS: no rashes or lesions noted, skin turgor normal, no jaundice, no petechiae and no mottling GENERAL SKIN EXAM: no rashes or lesions noted and turgor normal Course Vital Signs: Vital signs: Vital Signs Temperature 98.5 F 03/18/20 03:53 Pulse Rate 64 03/18/20 05:30 Respiratory Rate 16 03/18/20 05:30 Blood Pressure 109/68 03/18/20 04:30 Pulse Oximetry 96 03/18/20 05:30 MDM - Syncope MDM Narrative: Medical decision making narrative: Upon talking to the patient's it sounds as though he may have had a withdrawal seizure. I will go ahead and add a CT of the head as he has a headache and he is never had a seizure before. I will give him a dose of Ativan here. I will try to arrange for outpatient follow-up since he is recently and fired a somewhat will have to manage his medications. Lab Data: Attestation: I reviewed the patient's lab results. Labs: Lab Results 03/18/20 03/18/20 03/18/20 Range/Units 04:05 04:10 04:10 WBC 8.4 (4.0-10.0) 10^3/ uL RBC 4.88 (4.1-5.3) 10^6/u L Hgb 16.2 (11.7-16.6) g/dL Hct 46.7 (42.0-52.0) % MCV 95.7 H (80-94) fL MCH 33.2 (28.0-34.0) pg MCHC 34.7 (30.0-36.0) g/dL RDW 12.4 (12.1-15.1) % Plt Count 243 (130-400) 10^3/c mm MPV 8.9 (7.4-10.4) fL Neut % (Auto) 44.3 % Lymph % (Auto) 42.8 % Mcdowell % (Auto) 8.1 % Eos % (Auto) 3.9 % Baso % (Auto) 0.4 % Neut # (Auto) 3.8 (1.8-7.7) 10^3/u L Lymph # (Auto) 3.6 (0.8-4.8) 10^3/u L Mcdowell # (Auto) 0.7 (0.2-0.9) 10^3/u L Eos # (Auto) 0.3 (0.0-0.8) 10^3/u L Baso # (Auto) 0.0 (0.0-0.1) 10^3/u L Nucleated RBC % (a uto) 0 % Nucleated RBCs # 0.0 /100WBC Sodium (136-145) mmol/L Potassium (3.5-5.1) mmol/L Chloride (98-107) mmol/L Carbon Dioxide (22-29) mmol/L Anion Gap (5-19) BUN (6-20) mg/dL Creatinine (0.7-1.2) mg/dL GFR Calculation (90-130) mL/min Glucose (65-115) mg/dL Calculated Osmolal ity (285-295) mOsm/k g Calcium (8.5-10.5) mg/dL Magnesium (1.7-2.3) mg/dL Total Bilirubin (0.15-1.2) mg/dL AST (0-40) U/L ALT (0-41) U/L Alkaline Phosphata se (40-130) IU/L Ammonia 28 (16-60) umol/L Troponin T Baselin e (0-15) ng/mL Total Protein (6.6-8.7) g/dL Albumin (3.5-5.2) g/dL Globulin (1.3-4.6) g/dL Urine Color Yellow (Yellow) Urine Appearance Clear (CLEAR) Urine pH 8 H (5-7) Ur Specific Gravit y 1.015 (1.005-1.030) Urine Protein Neg (Negative) Urine Glucose (UA) Norm (Normal) Urine Ketones Negative (Negative) Urine Blood Neg (Negative) Urine Nitrate Negative (Negative) Urine Bilirubin Neg (NEGATIVE) Prot Sulfosalicyli c Acd Negative (Negative) Urine Urobilinogen Norm (Negative) mg/dL Ur Leukocyte Tianna ase Negative (Negative) Urine RBC Rare (0-2) /hpf Urine WBC Rare (0-5) /hpf Ur Squamous Epith Cells Rare (0-5) Urine Bacteria Trace (NONE) Ethyl Alcohol (0-10) mg/dL 03/18/20 03/18/20 Range/Units 04:10 04:10 WBC (4.0-10.0) 10^3/ uL RBC (4.1-5.3) 10^6/u L Hgb (11.7-16.6) g/dL Hct (42.0-52.0) % MCV (80-94) fL MCH (28.0-34.0) pg MCHC (30.0-36.0) g/dL RDW (12.1-15.1) % Plt Count (130-400) 10^3/c mm MPV (7.4-10.4) fL Neut % (Auto) % Lymph % (Auto) % Mcdowell % (Auto) % Eos % (Auto) % Baso % (Auto) % Neut # (Auto) (1.8-7.7) 10^3/u L Lymph # (Auto) (0.8-4.8) 10^3/u L Mcdowell # (Auto) (0.2-0.9) 10^3/u L Eos # (Auto) (0.0-0.8) 10^3/u L Baso # (Auto) (0.0-0.1) 10^3/u L Nucleated RBC % (a uto) % Nucleated RBCs # /100WBC Sodium 138 (136-145) mmol/L Potassium 4.3 (3.5-5.1) mmol/L Chloride 98 (98-107) mmol/L Carbon Dioxide 29 (22-29) mmol/L Anion Gap 15.3 (5-19) BUN 8 (6-20) mg/dL Creatinine 0.7 (0.7-1.2) mg/dL GFR Calculation 129.9 (90-130) mL/min Glucose 101 (65-115) mg/dL Calculated Osmolal ity 282 L (285-295) mOsm/k g Calcium 10.1 (8.5-10.5) mg/dL Magnesium 2.1 (1.7-2.3) mg/dL Total Bilirubin 0.4 (0.15-1.2) mg/dL AST 32 (0-40) U/L ALT 64 H (0-41) U/L Alkaline Phosphata se 72 (40-130) IU/L Ammonia (16-60) umol/L Troponin T Baselin e 6 (0-15) ng/mL Total Protein 7.8 (6.6-8.7) g/dL Albumin 4.9 (3.5-5.2) g/dL Globulin 2.9 (1.3-4.6) g/dL Urine Color (Yellow) Urine Appearance (CLEAR) Urine pH (5-7) Ur Specific Gravit y (1.005-1.030) Urine Protein (Negative) Urine Glucose (UA) (Normal) Urine Ketones (Negative) Urine Blood (Negative) Urine Nitrate (Negative) Urine Bilirubin (NEGATIVE) Prot Sulfosalicyli c Acd (Negative) Urine Urobilinogen (Negative) mg/dL Ur Leukocyte Tianna ase (Negative) Urine RBC (0-2) /hpf Urine WBC (0-5) /hpf Ur Squamous Epith Cells (0-5) Urine Bacteria (NONE) Ethyl Alcohol < 10 (0-10) mg/dL EKG Data^: EKG 1: Attestation: I personally reviewed and interpreted this EKG as follows: EKG interpretation date: 03/18/20 EKG interpretation time: 04:02 Interpretation: Normal sinus rhythm at 74 beats a minute, incomplete right bundle branch block, normal axis, no blocks, normal intervals. Discharge Plan Discharge Patient Disposition: Home, Self-Care Clinical Impression: Benzodiazepine withdrawal with complication, Seizure Condition: Stable Prescriptions: New Ativan 1 mg tablet 1 mg PO Q6H Qty: 30 RF: 1 No Action lamotrigine 25 mg tablet 25 mg PO DAILY Qty: 140 RF: 0 risperidone [Risperdal] 3 mg tablet 3 mg PO BID Qty: 60 RF: 1 prazosin 2 mg capsule 2 mg PO .HS Qty: 30 RF: 1 quetiapine [Seroquel] 50 mg tablet 50 mg PO .HS Qty: 30 RF: 1 pantoprazole [Protonix] 40 mg Tablet,Delayed Release (Dr/Ec) 40 mg PO BID RF: 0 lisinopril 10 mg Tablet 10 mg PO BID RF: 0 albuterol sulfate [ProAir HFA] 90 mcg/actuation Hfa Aerosol Inhaler 2 puff INHALATION Q6H PRN (Reason: Shortness Of Breath) RF: 0 atenolol 50 mg Tablet 50 mg PO BID RF: 0 ibuprofen 600 mg tablet 600 mg PO Q8H PRN (Reason: pain) Qty: 30 RF: 0 methocarbamol [Robaxin-750] 750 mg tablet 750 mg PO Q8H Qty: 20 RF: 0 ondansetron HCl [Zofran] 4 mg tablet 4 mg PO QID PRN (Reason: nausea and vomiting) Qty: 14 RF: 0 dlulmrfdwl-zfghjztnjj-mom-cod [id number] mg capsule 1 cap PO Q4H PRN (Reason: pain) Qty: 7 RF: 0 Discharge Orders: Discharge Order (Routine); Ordered 03/18/20 Ordered By: Alonzo Sanchez Referrals: [facility] [Other] Yamile Marsh, [Primary Care Provider] - Sign Out Sign Out Data: Patient Sign Out occurred on 03/18/20 at 06:44. Patient's care was discussed, and care was transferred from to Alonzo Sanchez. 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 Beth Andino C5-C6 ACDFF History of knee surgery Family History Family/Other Heart disease Grandfather Dementia Social History Smoking and tobacco status: current every day smoker Alcohol intake: current Household members: spouse Marital status: Current occupational status: unemployed History of recent travel: No Course Vital Signs: Vital signs: Vital Signs Temperature 98.5 F 03/18/20 03:53 Pulse Rate 64 03/18/20 05:30 Respiratory Rate 16 03/18/20 05:30 Blood Pressure 109/68 03/18/20 04:30 Pulse Oximetry 96 03/18/20 05:30 MDM - Syncope Lab Data: Labs: Lab Results 03/18/20 03/18/20 03/18/20 Range/Units 04:05 04:10 04:10 WBC 8.4 (4.0-10.0) 10^3/ uL RBC 4.88 (4.1-5.3) 10^6/u L Hgb 16.2 (11.7-16.6) g/dL Hct 46.7 (42.0-52.0) % MCV 95.7 H (80-94) fL MCH 33.2 (28.0-34.0) pg MCHC 34.7 (30.0-36.0) g/dL RDW 12.4 (12.1-15.1) % Plt Count 243 (130-400) 10^3/c mm MPV 8.9 (7.4-10.4) fL Neut % (Auto) 44.3 % Lymph % (Auto) 42.8 % Mcdowell % (Auto) 8.1 % Eos % (Auto) 3.9 % Baso % (Auto) 0.4 % Neut # (Auto) 3.8 (1.8-7.7) 10^3/u L Lymph # (Auto) 3.6 (0.8-4.8) 10^3/u L Mcdowell # (Auto) 0.7 (0.2-0.9) 10^3/u L Eos # (Auto) 0.3 (0.0-0.8) 10^3/u L Baso # (Auto) 0.0 (0.0-0.1) 10^3/u L Nucleated RBC % (a uto) 0 % Nucleated RBCs # 0.0 /100WBC Sodium (136-145) mmol/L Potassium (3.5-5.1) mmol/L Chloride (98-107) mmol/L Carbon Dioxide (22-29) mmol/L Anion Gap (5-19) BUN (6-20) mg/dL Creatinine (0.7-1.2) mg/dL GFR Calculation (90-130) mL/min Glucose (65-115) mg/dL Calculated Osmolal ity (285-295) mOsm/k g Calcium (8.5-10.5) mg/dL Magnesium (1.7-2.3) mg/dL Total Bilirubin (0.15-1.2) mg/dL AST (0-40) U/L ALT (0-41) U/L Alkaline Phosphata se (40-130) IU/L Ammonia 28 (16-60) umol/L Troponin T Baselin e (0-15) ng/mL Total Protein (6.6-8.7) g/dL Albumin (3.5-5.2) g/dL Globulin (1.3-4.6) g/dL Urine Color Yellow (Yellow) Urine Appearance Clear (CLEAR) Urine pH 8 H (5-7) Ur Specific Gravit y 1.015 (1.005-1.030) Urine Protein Neg (Negative) Urine Glucose (UA) Norm (Normal) Urine Ketones Negative (Negative) Urine Blood Neg (Negative) Urine Nitrate Negative (Negative) Urine Bilirubin Neg (NEGATIVE) Prot Sulfosalicyli c Acd Negative (Negative) Urine Urobilinogen Norm (Negative) mg/dL Ur Leukocyte Tianna ase Negative (Negative) Urine RBC Rare (0-2) /hpf Urine WBC Rare (0-5) /hpf Ur Squamous Epith Cells Rare (0-5) Urine Bacteria Trace (NONE) Ethyl Alcohol (0-10) mg/dL 03/18/20 03/18/20 Range/Units 04:10 04:10 WBC (4.0-10.0) 10^3/ uL RBC (4.1-5.3) 10^6/u L Hgb (11.7-16.6) g/dL Hct (42.0-52.0) % MCV (80-94) fL MCH (28.0-34.0) pg MCHC (30.0-36.0) g/dL RDW (12.1-15.1) % Plt Count (130-400) 10^3/c mm MPV (7.4-10.4) fL Neut % (Auto) % Lymph % (Auto) % Mcdowell % (Auto) % Eos % (Auto) % Baso % (Auto) % Neut # (Auto) (1.8-7.7) 10^3/u L Lymph # (Auto) (0.8-4.8) 10^3/u L Mcdowell # (Auto) (0.2-0.9) 10^3/u L Eos # (Auto) (0.0-0.8) 10^3/u L Baso # (Auto) (0.0-0.1) 10^3/u L Nucleated RBC % (a uto) % Nucleated RBCs # /100WBC Sodium 138 (136-145) mmol/L Potassium 4.3 (3.5-5.1) mmol/L Chloride 98 (98-107) mmol/L Carbon Dioxide 29 (22-29) mmol/L Anion Gap 15.3 (5-19) BUN 8 (6-20) mg/dL Creatinine 0.7 (0.7-1.2) mg/dL GFR Calculation 129.9 (90-130) mL/min Glucose 101 (65-115) mg/dL Calculated Osmolal ity 282 L (285-295) mOsm/k g Calcium 10.1 (8.5-10.5) mg/dL Magnesium 2.1 (1.7-2.3) mg/dL Total Bilirubin 0.4 (0.15-1.2) mg/dL AST 32 (0-40) U/L ALT 64 H (0-41) U/L Alkaline Phosphata se 72 (40-130) IU/L Ammonia (16-60) umol/L Troponin T Baselin e 6 (0-15) ng/mL Total Protein 7.8 (6.6-8.7) g/dL Albumin 4.9 (3.5-5.2) g/dL Globulin 2.9 (1.3-4.6) g/dL Urine Color (Yellow) Urine Appearance (CLEAR) Urine pH (5-7) Ur Specific Gravit y (1.005-1.030) Urine Protein (Negative) Urine Glucose (UA) (Normal) Urine Ketones (Negative) Urine Blood (Negative) Urine Nitrate (Negative) Urine Bilirubin (NEGATIVE) Prot Sulfosalicyli c Acd (Negative) Urine Urobilinogen (Negative) mg/dL Ur Leukocyte Tianna ase (Negative) Urine RBC (0-2) /hpf Urine WBC (0-5) /hpf Ur Squamous Epith Cells (0-5) Urine Bacteria (NONE) Ethyl Alcohol < 10 (0-10) mg/dL Discharge Plan Discharge Patient Disposition: Home, Self-Care Clinical Impression: Benzodiazepine withdrawal with complication, Seizure Condition: Stable Prescriptions: New Ativan 1 mg tablet 1 mg PO Q6H Qty: 30 RF: 1 No Action lamotrigine 25 mg tablet 25 mg PO DAILY Qty: 140 RF: 0 risperidone [Risperdal] 3 mg tablet 3 mg PO BID Qty: 60 RF: 1 prazosin 2 mg capsule 2 mg PO .HS Qty: 30 RF: 1 quetiapine [Seroquel] 50 mg tablet 50 mg PO .HS Qty: 30 RF: 1 pantoprazole [Protonix] 40 mg Tablet,Delayed Release (Dr/Ec) 40 mg PO BID RF: 0 lisinopril 10 mg Tablet 10 mg PO BID RF: 0 albuterol sulfate [ProAir HFA] 90 mcg/actuation Hfa Aerosol Inhaler 2 puff INHALATION Q6H PRN (Reason: Shortness Of Breath) RF: 0 atenolol 50 mg Tablet 50 mg PO BID RF: 0 ibuprofen 600 mg tablet 600 mg PO Q8H PRN (Reason: pain) Qty: 30 RF: 0 methocarbamol [Robaxin-750] 750 mg tablet 750 mg PO Q8H Qty: 20 RF: 0 ondansetron HCl [Zofran] 4 mg tablet 4 mg PO QID PRN (Reason: nausea and vomiting) Qty: 14 RF: 0 muxwnzarfy-aqimjxsuvd-vdk-cod [id number] mg capsule 1 cap PO Q4H PRN (Reason: pain) Qty: 7 RF: 0 Discharge Orders: Discharge Order (Routine); Ordered 03/18/20 Ordered By: Alonzo Sanchez Referrals: [facility] [Other] Yamile Marsh DO [Primary Care Provider] - Sign Out Sign Out Data: Patient Sign Out occurred on 03/18/20 at 06:44. Patient's care was discussed, and care was transferred from to Alonzo Sanchez. 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
[2020-03-18 04:44] LABS: Basophils % 0.4 %; Eosinophils # 0.3 10^3/uL (0.0-0.8); Eosinophils % 3.9 %; Hematocrit 46.7 % (42.0-52.0); Hemoglobin 16.2 g/dL (11.7-16.6); Lymphocytes # 3.6 10^3/uL (0.8-4.8); Lymphocytes % 42.8 %; Mean Corpuscular HGB Conc 34.7 g/dL (30.0-36.0); Mean Corpuscular Hemoglobin 33.2 pg (28.0-34.0); Mean Corpuscular Volume 95.7 fL (80-94); Mean Platelet Volume 8.9 fL (7.4-10.4); Monocytes # 0.7 10^3/uL (0.2-0.9); Monocytes % 8.1 %; Neutrophils # 3.8 10^3/uL (1.8-7.7); Neutrophils % 44.3 %; Nucleated Red Blood Cells % 0 %; Platelet Count 243 10^3/cmm (130-400); Red Blood Count 4.88 10^6/uL (4.1-5.3); Red Cell Distribution Width 12.4 % (12.1-15.1); White Blood Count 8.4 10^3/uL (4.0-10.0)
[2020-03-18 04:56] LABS: Alanine Aminotransferase 64 U/L (0-41); Albumin Level 4.9 g/dL (3.5-5.2); Alkaline Phosphatase 72 IU/L (40-130); Anion Gap 15.3 (5-19); Aspartate Amino Transferase 32 U/L (0-40); Blood Urea Nitrogen 8 mg/dL (6-20); Calcium 10.1 mg/dL (8.5-10.5); Carbon Dioxide 29 mmol/L (22-29); Chloride 98 mmol/L (98-107); Globulin 2.9 g/dL (1.3-4.6); Glomerular Filtration Rate 129.9 mL/min (90-130); Glucose 101 mg/dL (65-115); Magnesium 2.1 mg/dL (1.7-2.3); Osmolality Calculated 282 mOsm/kg (285-295); Potassium 4.3 mmol/L (3.5-5.1); Sodium 138 mmol/L (136-145); Total Bilirubin 0.4 mg/dL (0.15-1.2); Total Protein 7.8 g/dL (6.6-8.7)
[2020-03-18 04:58] LABS: Alcohol Level < 10 mg/dL (0-10); Ammonia 28 umol/L (16-60)
[2020-03-18 04:59] LABS: Troponin(5th) Baseline 6 ng/mL (0-15)
[2020-03-18 05:12] LABS: Bacteria Urine TRACE; Bilirubin Urine Neg (NEGATIVE); Blood Urine Neg (Negative); Glucose Urine UA Norm (Normal); Ketones Urine Negative (Negative); Leukocyte Esterase Urine Negative (Negative); Nitrate Urine Negative (Negative); Protein Urine Neg (Negative); RBC Urine RARE /hpf (0-2); Specific Gravity, Urine 1.015 (1.005-1.030); Squamous Epithelial Cell Urine RARE (0-5); Sulfosalicylic Acid Urine Negative (Negative); Urine Appearance Clear (CLEAR); Urine Color Yellow (Yellow); Urobilinogen Urine Norm (Negative); WBC Urine RARE /hpf (0-5); pH Urine 8 (5-7)
--- NOTE | 2020-03-18 06:10 | CTR_ITS ---
PROCEDURE INFORMATION: Exam: CT Head Without Contrast Exam date and time: 03/18/2020 6:13 AM Age: 34 years old Clinical indication: Pain; Patient HX: Possible seizure activity. C/O headache. ; Additional info: Tapia/ams TECHNIQUE: Imaging protocol: Computed tomography of the head without contrast. Radiation optimization: All CT scans at this facility use at least one of these dose optimization techniques: automated exposure control; mA and/or kV adjustment per patient size (includes targeted exams where dose is matched to clinical indication); or iterative reconstruction. COMPARISON: CT head wo con* [id number] 10/07/2019 12:26 PM RADIATION DOSE METRICS: Total DLP: 768.74 mGy-cm FINDINGS: Brain: Normal. No hemorrhage. Unremarkable white matter. No mass effect. Ventricles: Normal. No ventriculomegaly. Bones/joints: Unremarkable. No acute fracture. Sinuses: There is mild ethmoid mucosal thickening. No fluid levels. Mastoid air cells: Visualized mastoid air cells are well aerated. Soft tissues: Unremarkable. CT/CT head wo con* [id number] IMPRESSION: No acute intracranial abnormality. Radiation Dose CTDIVOL = (mGy): DLP = 768.74 (mGy-cm)
[2020-03-18] MEDS: LORazepam 2 mg/mL INJ 1 mL 1 MG IVP (06:36)
[2020-03-18 07:14] LABS: Troponin 5 2HR Delta 0 ABS# (0-10)
--- NOTE | 2020-03-18 09:50 | ECG_ITS ---
Measurements Intervals [place] Rate: 68 P: 44 NC: 152 QRS: 27 QRSD: 102 T: 17 QT: 364 QTc: 390 SINUS RHYTHM POSSIBLE RIGHT VENTRICULAR CONDUCTION DELAY [RSR (QR) IN V1/V2] POSSIBLE INFERIOR MYOCARDIAL INFARCTION , PROBABLY OLD WITH POSTERIOR EXTENSION [30 ms Q WAVE IN II/aVFPROMINENT R WAVE IN V1/ Compared to ECG 04/20/2019 03:21:56 Myocardial infarct finding now present Electronically Signed On 03-18-2020 17:19:41 CDT by Becca Farris M.D. [email or web address]
== END 2020-03-18 07:00 | disposition home or self-care (01) ==
PROVIDERS: Emergency Medicine; Emergency Provider Family Medicine; PCP Family Medicine
DX: F19.939 Other psychoactive substance use, unspecified with withdrawal, unspecified (principal); G40.89 Other seizures; F17.210 Nicotine dependence, cigarettes, uncomplicated
CPT/HCPCS: 12345; 70450; 71045; 80053; 80307; 81001; 82140; 83735; 84484; 85025; 93005; 96374; 96375; 99283; 99284; J2060

== ENCOUNTER 2020-03-23 23:55 | Emergency (ER) | payer MEDICAID, SELFPAY ==
[2020-03-24 00:01] VITALS: BP 108/75; PULSE 86; RESP 18; TEMP 36.6; O2SAT 97; BMI 27.3
--- NOTE | 2020-03-24 00:04 | PC.NURSE ---
Patient has been taking hydrocodone, and has been out of medication for a while. Patient explains that he feels like he is going crazy has lots of anxiety, pain and depression.
--- NOTE | 2020-03-24 00:43 | W.ED.PSYCH ---
HPI - Psych General: Chief Complaint: Psychiatric Symptoms Stated Complaint: HYDROCODONE WITHDRAWL Time Seen by Provider: 03/24/20 00:32 History of Present Illness: HPI Narrative: Patient arrived by ambulance says he would like to have some pain medicine given the story that he is gave last 2 times that he been fired and been out of pain medicine which is been for quite a while complaint: other (Seeking pain medicine) Onset (ago): year(s) History of same: Yes Relieving factors: none Associated psychiatric symptoms: none Associated symptoms: Reports no associated symptoms; Deny depression Treatments prior to arrival: none Review of Systems Const: Denies: fever, chills or body aches Eyes: Denies: change in vision or blurry vision ENMT: Denies: throat pain or nasal congestion Card: Denies: chest pain or shortness of breath on exertion Resp: Denies: shortness of breath, productive cough or non-productive cough GI: Denies: abdominal pain, nausea or vomiting : Denies: difficulty urinating Musc: Reports: other (Patient states that he hurts kind is hurts all over he said this for years has been taking hydrocodone would like to be back on hydrocodone); Denies: extremity pain Skin/Breast: Denies: rash Neuro: Denies: headache Psych: Denies: anxiety or depression Maxwell/Lymph: Denies: easy bruising [facility] ED PFSH: Social History Smoking and tobacco status: current every day smoker Alcohol intake: current Household members: spouse Marital status: Current occupational status: unemployed History of recent travel: No Physical Exam Const: COMMON NORMALS: no apparent distress, average body habitus and oriented x3 HENMT: COMMON NORMALS: normocephalic HEAD & SCALP: normal to inspection and normocephalic FACE & SINUS: normal facial exam Eye: COMMON NORMALS: conjunctivae normal GENERAL EYE: normal appearance of both eyes CONJUNCTIVA: Yes conjunctivae normal Neck/C-Spine: COMMON NORMALS: no JVD Chest: COMMONS NORMALS: inspection of chest normal Resp: COMMON NORMALS: normal respiratory effort and clear to auscultation bilaterally AUSCULTATION: clear to auscultation bilaterally Cardio: COMMON NORMALS: no JVD, regular rate and regular rhythm RATE: regular rate RHYTHM: regular rhythm GI: COMMON NORMALS: normal to inspection, nondistended, normoactive bowel sounds Extremity: COMMON NORMALS: normal to inspection and full ROM Neuro: COMMON NORMALS: oriented x3 Discharge Plan Discharge Prescriptions: No Action lamotrigine 25 mg tablet 25 mg PO DAILY Qty: 140 RF: 0 risperidone [Risperdal] 3 mg tablet 3 mg PO BID Qty: 60 RF: 1 prazosin 2 mg capsule 2 mg PO .HS Qty: 30 RF: 1 quetiapine [Seroquel] 50 mg tablet 50 mg PO .HS Qty: 30 RF: 1 pantoprazole [Protonix] 40 mg Tablet,Delayed Release (Dr/Ec) 40 mg PO BID RF: 0 lisinopril 10 mg Tablet 10 mg PO BID RF: 0 albuterol sulfate [ProAir HFA] 90 mcg/actuation Hfa Aerosol Inhaler 2 puff INHALATION Q6H PRN (Reason: Shortness Of Breath) RF: 0 atenolol 50 mg Tablet 50 mg PO BID RF: 0 ibuprofen 600 mg tablet 600 mg PO Q8H PRN (Reason: pain) Qty: 30 RF: 0 methocarbamol [Robaxin-750] 750 mg tablet 750 mg PO Q8H Qty: 20 RF: 0 ondansetron HCl [Zofran] 4 mg tablet 4 mg PO QID PRN (Reason: nausea and vomiting) Qty: 14 RF: 0 hcqvwpyeai-kajwyogxcz-gia-cod [id number] mg capsule 1 cap PO Q4H PRN (Reason: pain) Qty: 7 RF: 0 Ativan 1 mg tablet 1 mg PO Q6H Qty: 30 RF: 1 Coding Level of Care 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
== END 2020-03-24 01:17 | disposition home or self-care (01) ==
PROVIDERS: Emergency Provider Nurse Practitioner Family; PCP Family Medicine
DX: F11.23 Opioid dependence with withdrawal (principal); F17.210 Nicotine dependence, cigarettes, uncomplicated
CPT/HCPCS: 12345; 99281

== ENCOUNTER 2020-03-26 12:22 | Emergency (ER) | payer MEDICAID, SELFPAY ==
[2020-03-26 12:22] VITALS: BP 115/80; PULSE 87; RESP 95; O2SAT 94
[2020-03-26 12:44] VITALS: BP 136/76; PULSE 88; RESP 16; TEMP 36.4; O2SAT 97; BMI 27.3
--- NOTE | 2020-03-26 13:01 | W.ED.GENADLT ---
HPI - General Adult General: Chief complaint: Medical Clearance Stated complaint: TURNING LEAF SENT OVER Time Seen by Provider: 03/26/20 13:00 History of Present Illness: HPI narrative: 34-year-old male comes in he is wanting medical clearance and detox from being on Xanax and hydrocodone. He was taking for half milligram tablets per day of Xanax and for 10 mg tablets per day of hydrocodone. He relates his previous primary care visit physician had dismissed him from their practice and his last filled prescription was on February 26 and since then he reports having self tapered. He does have a visit in the emergency room with his report of a seizure associated with benzodiazepine withdrawals. This was on March 18. He subsequently was in the emergency room on March 24 2 days ago requesting benzodiazepines and narcotics. Onset (ago): week(s) Location: back Radiation: non-radiation Quality: aching Pain Consistency: constant Relieving factors: rest Associated symptoms: Deny chest pain, dyspnea, malaise, nausea, rash or vomiting Review of Systems Const: Denies: fever(s), chills, body aches, change in appetite, fatigue or malaise ENMT: Denies: throat pain, ear or mastoid pain, nasal discharge or nasal congestion Card: Denies: chest pain, edema, dyspnea on exertion or orthopnea Resp: Denies: dyspnea, productive cough or non-productive cough GI: Denies: abdominal pain, nausea, vomiting, hematemesis, coffee ground emesis, diarrhea, constipation, bloating, hematochezia or melena : Denies: flank pain, dysuria, urinary frequency or urinary urgency Skin/Breast: Denies: rash or pruritus [facility] PFSH: Medical History (Updated 03/26/20 @ 15:45 by Sriram Chicas DO) Hepatitis C Intervertebral disc disorder with radiculopathy of lumbosacral region Spondylolisthesis, lumbosacral region Surgical History History of appendectomy History of fusion of cervical spine 2009 Dr. Beth Andino C5-C6 ACDFF History of knee surgery Family History Family/Other Heart disease Grandfather Dementia Social History Smoking and tobacco status: current every day smoker Alcohol intake: current Household members: spouse Marital status: Current occupational status: unemployed History of recent travel: No Physical Exam Const: COMMON NORMALS: no acute distress GENERAL APPEARANCE: cooperative and comfortable ORIENTATION/CONSCIOUSNESS: Yes awake, Yes oriented to person, Yes oriented to place and Yes oriented to time HENMT: COMMON NORMALS: normocephalic, atraumatic, hearing grossly normal bilaterally, external ears normal, EAC's normal, TM's normal bilaterally, Normal nasal mucous membranes and turbinates present, moist oral mucous membranes and oropharynx normal HEAD & SCALP: normocephalic and atraumatic NOSE: Normal nasal mucous membranes and turbinates present EXTERNAL EAR: Yes external ears normal EXTERNAL AUDITORY CANAL: EAC's normal TYMPANIC MEMBRANE: TM's normal bilaterally Eye: COMMON NORMALS: Equal, round and reactive pupils present, EOMs intact bilaterally, conjunctivae normal and no scleral icterus CONJUNCTIVA: Yes conjunctivae normal PUPIL: Yes Equal, round and reactive pupils present Neck/C-Spine: COMMON NORMALS: full ROM, no lymphadenopathy, supple and no JVD Lymph: LYMPHATIC: no lymphadenopathy noted and no lymphedema noted Resp: COMMON NORMALS: normal respiratory effort, No retractions, No use of accessory muscles and clear to auscultation bilaterally AUSCULTATION: clear to auscultation bilaterally Cardio: COMMON NORMALS: no JVD, regular rate, regular rhythm and No murmurs present (Cardio) RATE: regular rate RHYTHM: regular rhythm GI: COMMON NORMALS: Soft to palpation and No hepatosplenomegaly present AUSCULTATION: Yes normoactive bowel sounds PALPATION: Yes Soft to palpation, No Tenderness to palpation present (GI), No Guarding due to palpation present (GI) and Yes No hepatosplenomegaly present Extremity: COMMON NORMALS: normal to inspection, capillary refill normal, no clubbing, cyanosis or edema, no calf tenderness and no pedal edema Neuro: SENSORIUM/ORIENTATION: Yes oriented to person, Yes oriented to place and Yes oriented to time Skin: COMMON NORMALS: no rashes or lesions noted GENERAL SKIN EXAM: no rashes or lesions noted Course Vital Signs: Vital signs: Vital Signs Temperature 98.6 F 03/26/20 16:00 Pulse Rate 81 03/26/20 16:00 Respiratory Rate 18 03/26/20 16:00 Blood Pressure 131/75 03/26/20 16:00 Pulse Oximetry 96 03/26/20 16:00 MDM - General Adult MDM Narrative: Medical decision making narrative: Patient has no sign delirium tremors actually been tapering off now for over a month at this point on think is much to do medically in the hospital will refer him to [facility] for his anxiety would not recommend starting any narcotics in the ER setting for chronic back pain. Can continue to use previously prescribed medications. Lab Data: Labs: Lab Results 03/26/20 03/26/20 03/26/20 Range/Units 14:11 14:11 14:38 WBC 8.1 (4.0-10.0) 10^3/ uL RBC 4.57 (4.1-5.3) 10^6/u L Hgb 14.8 (11.7-16.6) g/dL Hct 42.9 (42.0-52.0) % MCV 93.9 (80-94) fL MCH 32.4 (28.0-34.0) pg MCHC 34.5 (30.0-36.0) g/dL RDW 12.2 (12.1-15.1) % Plt Count 231 (130-400) 10^3/c mm MPV 8.6 (7.4-10.4) fL Neut % (Auto) 50.5 % Lymph % (Auto) 38.5 % Kemper % (Auto) 7.0 % Eos % (Auto) 3.2 % Baso % (Auto) 0.4 % Neut # (Auto) 4.1 (1.8-7.7) 10^3/u L Lymph # (Auto) 3.1 (0.8-4.8) 10^3/u L Kemper # (Auto) 0.6 (0.2-0.9) 10^3/u L Eos # (Auto) 0.3 (0.0-0.8) 10^3/u L Baso # (Auto) 0.0 (0.0-0.1) 10^3/u L Nucleated RBC % (a uto) 0 % Nucleated RBCs # 0.0 /100WBC Sodium 135 L (136-145) mmol/L Potassium 3.7 (3.5-5.1) mmol/L Chloride 98 (98-107) mmol/L Carbon Dioxide 25 (22-29) mmol/L Anion Gap 15.7 (5-19) BUN 6 (6-20) mg/dL Creatinine 0.7 (0.7-1.2) mg/dL GFR Calculation 129.9 (90-130) mL/min Glucose 115 (65-115) mg/dL Calculated Osmolal ity 277 L (285-295) mOsm/k g Calcium 8.7 (8.5-10.5) mg/dL Total Bilirubin 0.4 (0.15-1.2) mg/dL AST 34 (0-40) U/L ALT 72 H (0-41) U/L Alkaline Phosphata se 66 (40-130) IU/L Total Protein 6.9 (6.6-8.7) g/dL Albumin 4.4 (3.5-5.2) g/dL Globulin 2.5 (1.3-4.6) g/dL TSH 1.29 (0.27-4.20) uIU/ mL Urine Color Straw (Yellow) Urine Appearance Clear (CLEAR) Urine pH 8 H (5-7) Ur Specific Gravit y 1.010 (1.005-1.030) Urine Protein Neg (Negative) Urine Glucose (UA) Norm (Normal) Urine Ketones Negative (Negative) Urine Blood Neg (Negative) Urine Nitrate Negative (Negative) Urine Bilirubin Neg (NEGATIVE) Prot Sulfosalicyli c Acd Negative (Negative) Urine Urobilinogen Norm (Negative) mg/dL Ur Leukocyte Tianna ase Negative (Negative) Salicylates < 0.3 L (3-10) mg/dL Urine Opiates Scre en (Negative) ng/mL Acetaminophen < 5.0 L (10-30) ug/mL Ur Barbiturates Sc reen (Negative) ng/mL Ur Phencyclidine S crn (Negative) ng/mL Ur Amphetamines Sc reen (Negative) ng/mL U Benzodiazepines Scrn (Negative) ng/mL Urine Cocaine Scre en (Negative) ng/mL U Marijuana (THC) Screen (Negative) ng/mL Ethyl Alcohol < 10 (0-10) mg/dL 03/26/20 Range/Units 14:38 WBC (4.0-10.0) 10^3/ uL RBC (4.1-5.3) 10^6/u L Hgb (11.7-16.6) g/dL Hct (42.0-52.0) % MCV (80-94) fL MCH (28.0-34.0) pg MCHC (30.0-36.0) g/dL RDW (12.1-15.1) % Plt Count (130-400) 10^3/c mm MPV (7.4-10.4) fL Neut % (Auto) % Lymph % (Auto) % Kemper % (Auto) % Eos % (Auto) % Baso % (Auto) % Neut # (Auto) (1.8-7.7) 10^3/u L Lymph # (Auto) (0.8-4.8) 10^3/u L Kemper # (Auto) (0.2-0.9) 10^3/u L Eos # (Auto) (0.0-0.8) 10^3/u L Baso # (Auto) (0.0-0.1) 10^3/u L Nucleated RBC % (a uto) % Nucleated RBCs # /100WBC Sodium (136-145) mmol/L Potassium (3.5-5.1) mmol/L Chloride (98-107) mmol/L Carbon Dioxide (22-29) mmol/L Anion Gap (5-19) BUN (6-20) mg/dL Creatinine (0.7-1.2) mg/dL GFR Calculation (90-130) mL/min Glucose (65-115) mg/dL Calculated Osmolal ity (285-295) mOsm/k g Calcium (8.5-10.5) mg/dL Total Bilirubin (0.15-1.2) mg/dL AST (0-40) U/L ALT (0-41) U/L Alkaline Phosphata se (40-130) IU/L Total Protein (6.6-8.7) g/dL Albumin (3.5-5.2) g/dL Globulin (1.3-4.6) g/dL TSH (0.27-4.20) uIU/ mL Urine Color (Yellow) Urine Appearance (CLEAR) Urine pH (5-7) Ur Specific Gravit y (1.005-1.030) Urine Protein (Negative) Urine Glucose (UA) (Normal) Urine Ketones (Negative) Urine Blood (Negative) Urine Nitrate (Negative) Urine Bilirubin (NEGATIVE) Prot Sulfosalicyli c Acd (Negative) Urine Urobilinogen (Negative) mg/dL Ur Leukocyte Tianna ase (Negative) Salicylates (3-10) mg/dL Urine Opiates Scre en Negative (Negative) ng/mL Acetaminophen (10-30) ug/mL Ur Barbiturates Sc reen Negative (Negative) ng/mL Ur Phencyclidine S crn Negative (Negative) ng/mL Ur Amphetamines Sc reen Negative (Negative) ng/mL U Benzodiazepines Scrn Positive H (Negative) ng/mL Urine Cocaine Scre en Negative (Negative) ng/mL U Marijuana (THC) Screen Negative (Negative) ng/mL Ethyl Alcohol (0-10) mg/dL Discharge Plan Discharge Patient Disposition: Home, Self-Care Clinical Impression: Generalized anxiety disorder, Hepatitis C, Chronic back pain Condition: Stable Prescriptions: No Action risperidone [Risperdal] 3 mg tablet 3 mg PO BID Qty: 60 RF: 1 quetiapine [Seroquel] 50 mg tablet 50 mg PO .HS Qty: 30 RF: 1 pantoprazole [Protonix] 40 mg Tablet,Delayed Release (Dr/Ec) 40 mg PO BID RF: 0 lisinopril 10 mg Tablet 20 mg PO DAILY RF: 0 albuterol sulfate [ProAir HFA] 90 mcg/actuation Hfa Aerosol Inhaler 2 puff INHALATION Q6H PRN (Reason: Shortness Of Breath) RF: 0 atenolol 50 mg Tablet 50 mg PO BID RF: 0 prazosin 2 mg capsule 2 mg PO BEDTIME PRN (Reason: unknown) RF: 0 cetirizine 10 mg Tablet 10 mg PO DAILY RF: 0 divalproex 500 mg Tablet,Delayed Release (Dr/Ec) 500 mg PO BID RF: 0 pregabalin 50 mg Capsule 50 mg PO DAILY RF: 0 zolpidem 12.5 mg Tablet,Ext Release Multiphase 12.5 mg PO BEDTIME RF: 0 Vyvanse 20 mg Capsule 20 mg PO DAILY RF: 0 Xifaxan 550 mg Tablet 550 mg PO BID RF: 0 Referrals: Yamile Marsh DO [Primary Care Provider] - Discharge Diet: Usual diet Discharge Activity: Increase activity as tolerated Activity Restrictions/Additional Instructions: Case management will call to set up a primary care doctor. Discharge Date/Time: 03/26/20 16:00 Coding Level of Care Code ED Instrument And Control Technician for Crystal Fwd Exam Comprehensive
[2020-03-26 13:21] VITALS: BP 115/80; PULSE 84; RESP 18; O2SAT 95
[2020-03-26 14:15] LABS: Basophils % 0.4 %; Eosinophils # 0.3 10^3/uL (0.0-0.8); Eosinophils % 3.2 %; Hematocrit 42.9 % (42.0-52.0); Hemoglobin 14.8 g/dL (11.7-16.6); Lymphocytes # 3.1 10^3/uL (0.8-4.8); Lymphocytes % 38.5 %; Mean Corpuscular HGB Conc 34.5 g/dL (30.0-36.0); Mean Corpuscular Hemoglobin 32.4 pg (28.0-34.0); Mean Corpuscular Volume 93.9 fL (80-94); Mean Platelet Volume 8.6 fL (7.4-10.4); Monocytes # 0.6 10^3/uL (0.2-0.9); Neutrophils # 4.1 10^3/uL (1.8-7.7); Neutrophils % 50.5 %; Nucleated Red Blood Cells % 0 %; Platelet Count 231 10^3/cmm (130-400); Red Blood Count 4.57 10^6/uL (4.1-5.3); Red Cell Distribution Width 12.2 % (12.1-15.1); White Blood Count 8.1 10^3/uL (4.0-10.0)
[2020-03-26] MEDS: sodium chloride 0.9% 500 ML 999 ML IV (14:27)
[2020-03-26 14:31] VITALS: BP 113/72; PULSE 82; RESP 18; O2SAT 94
[2020-03-26 14:33] VITALS: BP 113/72; PULSE 90; RESP 18; O2SAT 95
[2020-03-26 14:42] LABS: Alanine Aminotransferase 72 U/L (0-41); Albumin Level 4.4 g/dL (3.5-5.2); Alkaline Phosphatase 66 IU/L (40-130); Anion Gap 15.7 (5-19); Aspartate Amino Transferase 34 U/L (0-40); Blood Urea Nitrogen 6 mg/dL (6-20); Calcium 8.7 mg/dL (8.5-10.5); Carbon Dioxide 25 mmol/L (22-29); Chloride 98 mmol/L (98-107); Globulin 2.5 g/dL (1.3-4.6); Glomerular Filtration Rate 129.9 mL/min (90-130); Glucose 115 mg/dL (65-115); Osmolality Calculated 277 mOsm/kg (285-295); Potassium 3.7 mmol/L (3.5-5.1); Sodium 135 mmol/L (136-145); Thyroid Stimulating Hormone 1.29 uIU/mL (0.27-4.20); Total Bilirubin 0.4 mg/dL (0.15-1.2); Total Protein 6.9 g/dL (6.6-8.7)
[2020-03-26 14:46] LABS: Add Urine Microscopic? NO
[2020-03-26 14:49] LABS: Acetaminophen < 5.0 ug/mL (10-30); Alcohol Level < 10 mg/dL (0-10); Salicylate < 0.3 mg/dL (3-10)
[2020-03-26 14:51] LABS: Bilirubin Urine Neg (NEGATIVE); Blood Urine Neg (Negative); Glucose Urine UA Norm (Normal); Ketones Urine Negative (Negative); Leukocyte Esterase Urine Negative (Negative); Nitrate Urine Negative (Negative); Protein Urine Neg (Negative); Sulfosalicylic Acid Urine Negative (Negative); Urine Appearance Clear (CLEAR); Urine Color Straw (Yellow); Urobilinogen Urine Norm (Negative); pH Urine 8 (5-7)
[2020-03-26 15:00] LABS: Amphetamines Screen Urine Negative (Negative); Barbiturates Screen Urine Negative (Negative); Benzodiazepines Screen Urine Positive (Negative); Cocaine Screen Urine Negative (Negative); Opiate Screen Urine Negative (Negative); PCP Screen Urine Negative (Negative); THC Screen Urine Negative (Negative)
[2020-03-26 16:00] VITALS: BP 131/75; PULSE 81; RESP 18; TEMP 37; O2SAT 96
--- NOTE | 2020-03-26 16:06 | DCPLANNER ---
manager income tax was asked to get patient established with a primary care physician. manager income tax spoke with patient, he stated that he needed a new physician. manager income tax called the office of Dr. Mayfield, spoke with Stefany, a follow up appointment was scheduled for Tuesday, April 14, 2020 at 9:[address] Mayfield. manager income tax informed physician and patient when the appointment was scheduled. manager income tax stressed the importance of attending the appointment and not attending the appointment with out calling to cancel or reschedule the appointment.
--- NOTE | 2020-05-02 12:31 | DCPLANNER ---
senior software engineering manager called the office of Dr. Mayfield, spoke with Wendy to confirm that an appointment had been scheduled for patient. senior software engineering manager was told that an appointment had been scheduled for 04.14.20 for patient, but was cancelled. senior software engineering manager was told that appointment had been cancelled due to some of the medications that patient was taking, Dr. Mayfield would not fill for him. Patient was told that physician would see him for routine care. Appointment was cancelled.
== END 2020-03-26 16:00 | disposition home or self-care (01) ==
PROVIDERS: Emergency Provider Family Medicine; PCP Family Medicine
DX: F41.1 Generalized anxiety disorder (principal); B19.20 Unspecified viral hepatitis C without hepatic coma; G89.29 Other chronic pain; M54.9 Dorsalgia, unspecified; F17.210 Nicotine dependence, cigarettes, uncomplicated
CPT/HCPCS: 12345; 36415; 80053; 80306; 80307; 81003; 84443; 85025; 96361; 96374; 99283; J0131; J7040

== ENCOUNTER 2020-04-01 11:45 | Emergency (ER) | payer MEDICAID, SELFPAY ==
[2020-04-01 11:47] VITALS: BP 121/80; PULSE 75; RESP 16; TEMP 36.6; O2SAT 97; BMI 26.4
--- NOTE | 2020-04-01 12:18 | W.ED.RECABL ---
HPI - Recheck/Abnormal Lab/Rx General: Chief Complaint: Recheck/Abnormal Lab/Rx Stated Complaint: med refill Time Seen by Provider: 04/01/20 11:47 History of Present Illness: HPI narrative: Patient is a 34-year-old male who presents today complaining of insomnia. He said that he was fired by his primary care physician, Dr. Marsh, because he called the office too much. He would like refills of his Restoril and zolpidem. His last dose was 3 or 4 days ago of each of those. He has been taking 5-7 Benadryl at bedtime to try to sleep without any success. He did go to [facility] but said he had to leave because his , who uses a walker at home, had fallen and he had to go home and take care of her. He has presented to this ED in the past and been diagnosed with narcotic seeking. There are many prior notes referring to his abuse of controlled substances. He also notes that he is out of his Vyvanse and wonders if I could refill that as well. MD complaint: medication refill request Review of Systems Const: Denies: fever(s), chills or body aches Resp: Denies: dyspnea Neuro: Denies: headache(s) or seizure-like activity Psych: Reports: sleeping less; Denies: suicidal ideation [facility] PFSH: Medical History Hepatitis C Intervertebral disc disorder with radiculopathy of lumbosacral region Spondylolisthesis, lumbosacral region Surgical History History of appendectomy History of fusion of cervical spine 2009 Dr. Beth Andino C5-C6 ACDFF History of knee surgery Family History Family/Other Heart disease Grandfather Dementia Social History Smoking and tobacco status: current every day smoker Alcohol intake: current Household members: spouse Marital status: Current occupational status: unemployed History of recent travel: No Physical Exam Const: COMMON NORMALS: no acute distress, average body habitus, patient oriented x3 and alert Neck/C-Spine: COMMON NORMALS: supple and no JVD Chest: COMMONS NORMALS: normal inspection of the chest Resp: COMMON NORMALS: normal respiratory effort and No use of accessory muscles Cardio: COMMON NORMALS: no JVD, regular rate, regular rhythm and No murmurs present (Cardio) RATE: regular rate RHYTHM: regular rhythm GI: COMMON NORMALS: Normal to inspection, nondistended, normoactive bowel sounds present Back/Pelvis: COMMON NORMALS: thoracic and lumbar spine normal to inspection Neuro: COMMON NORMALS: patient oriented x3 SENSORIUM/ORIENTATION: Yes alert Psych: COMMON NORMALS: mental status grossly normal, Normal thought process present, cooperative, normal affect, speech normal and activity/motor behavior normal SPEECH: Yes normal speech THOUGHT PROCESS: Normal thought process present Skin: COMMON NORMALS: no rashes or lesions noted GENERAL SKIN EXAM: no rashes or lesions noted Course ED course: I am definitely not comfortable refilling a controlled prescription in this patient. We discussed that he should never take more than the prescribed or recommended amount of a medication specifically Benadryl in this case. I did write him a prescription for trazodone, 50 mg nightly for sleep. He has an appointment with a new primary care physician on April 14 and he was encouraged to keep that. Vital Signs: Vital signs: Vital Signs Temperature 97.9 F 04/01/20 11:47 Pulse Rate 75 04/01/20 11:47 Respiratory Rate 16 04/01/20 11:47 Blood Pressure 121/80 04/01/20 11:47 Pulse Oximetry 97 04/01/20 11:47 Discharge Plan Discharge Patient Disposition: Home, Self-Care Clinical Impression: Insomnia Qualifiers: Insomnia type: unspecified Qualified Code(s): G47.00 - Insomnia, unspecified Condition: Stable Prescriptions: New trazodone 50 mg tablet 50 mg PO .at bedtime PRN (Reason: sleep) Qty: 30 RF: 0 No Action risperidone [Risperdal] 3 mg tablet 3 mg PO BID Qty: 60 RF: 1 quetiapine [Seroquel] 50 mg tablet 50 mg PO .HS Qty: 30 RF: 1 pantoprazole [Protonix] 40 mg Tablet,Delayed Release (Dr/Ec) 40 mg PO BID RF: 0 lisinopril 10 mg Tablet 20 mg PO DAILY RF: 0 albuterol sulfate [ProAir HFA] 90 mcg/actuation Hfa Aerosol Inhaler 2 puff INHALATION Q6H PRN (Reason: Shortness Of Breath) RF: 0 atenolol 50 mg Tablet 50 mg PO BID RF: 0 prazosin 2 mg capsule 2 mg PO BEDTIME PRN (Reason: unknown) RF: 0 cetirizine 10 mg Tablet 10 mg PO DAILY RF: 0 divalproex 500 mg Tablet,Delayed Release (Dr/Ec) 500 mg PO BID RF: 0 pregabalin 50 mg Capsule 50 mg PO DAILY RF: 0 zolpidem 12.5 mg Tablet,Ext Release Multiphase 12.5 mg PO BEDTIME RF: 0 Vyvanse 20 mg Capsule 20 mg PO DAILY RF: 0 Xifaxan 550 mg Tablet 550 mg PO BID RF: 0 Discharge Orders: Discharge Order (Routine); Ordered 04/01/20 Ordered By: Yajaira Suarez Referrals: Yamile Marsh DO [Primary Care Provider] - Discharge Diet: Usual diet Discharge Activity: Resume usual activity Patient Instructions: Insomnia (ED) Activity Restrictions/Additional Instructions: Follow up with your new primary care provider without fail. Never take more than the recommended amount of any medication. Coding Level of Care Code ED Aviation Electrical Technician for Crystal Golden
== END 2020-04-01 12:37 | disposition home or self-care (01) ==
LOC: ER 12:47
PROVIDERS: Emergency Provider Emergency Medicine; PCP Family Medicine
DX: G47.00 Insomnia, unspecified (principal); Z86.19 Personal history of other infectious and parasitic diseases; F17.210 Nicotine dependence, cigarettes, uncomplicated
CPT/HCPCS: 12345; 99281

== ENCOUNTER → 2020-04-16 07:59 | Outpatient (BNVA) | payer MEDICAID, SELFPAY | PROVIDERS: PCP Family Medicine; Visit Provider Psychiatry & Neurology Psychiatry | DX: F60.9 Personality disorder, unspecified (principal); F41.1 Generalized anxiety disorder; F43.12 Post-traumatic stress disorder, chronic | CPT/HCPCS: 99214 ==

== ENCOUNTER 2020-04-30 22:12 | Emergency (ER) | payer MEDICAID, SELFPAY ==
--- NOTE | 2020-04-30 22:14 | XR_ITS ---
WS: [id number] XR chest 1V portable [id number] REASON FOR EXAM: Weakness FINDINGS: The heart and mediastinal interfaces normal. The lung [place] are well aerated. No pneumonia, pleural effusion, pulmonary edema, no pneumothorax. The hilum and apices normal. No osseous abnormalities. XR/XR chest 1V portable [id number] IMPRESSION: Negative chest
[2020-04-30 22:15] VITALS: BP 125/85; PULSE 96; RESP 20; TEMP 36.8; O2SAT 96; BMI 28.1
--- NOTE | 2020-04-30 22:39 | ED_ITS ---
HPI - Headache General: Chief Complaint: Headache Stated Complaint: abnormal labs/dehydration/urination complications Time Seen by Provider: 04/30/20 22:27 History of Present Illness: HPI Narrative: Patient is a 34-year-old male comes to the ED with headache and was told he had an elevated ammonia level. Patient said his PCP pablito labs yesterday and called him today to let him know that his ammonia level was elevated. Patient has been taking lactulose to help reduce ammonia levels. He rates his current headache an 8 out of 10. He is also complaining of having a productive cough with white sputum. Denies any fevers. Associated symptoms: Deny chest pain, fever(s), nausea, rash or vomiting Review of Systems Const: Denies: fever(s), chills or fatigue Eyes: Denies: change in vision or eye discomfort ENMT: Denies: throat pain, odynophagia, nasal discharge or nasal congestion Card: Denies: chest pain, palpitations, edema, swelling of feet/ankles, dyspnea on exertion or orthopnea Resp: Reports: productive cough; Denies: dyspnea or non-productive cough GI: Denies: abdominal pain, nausea, vomiting, diarrhea, constipation or hematochezia : Denies: flank pain, difficulty urinating, dysuria or hematuria Musc: Denies: neck pain, back pain or extremity swelling Skin/Breast: Denies: rash or new lesions Neuro: Denies: headache(s), numbness in extremities or weakness in extremities PFS ED PFSH: Medical History Hepatitis C Intervertebral disc disorder with radiculopathy of lumbosacral region Spondylolisthesis, lumbosacral region Surgical History History of appendectomy History of fusion of cervical spine 2009 Dr. Beth Andino C5-C6 ACDFF History of knee surgery Family History Family/Other Heart disease Grandfather Dementia Social History Smoking and tobacco status: current every day smoker Alcohol intake: current Household members: spouse Marital status: Current occupational status: unemployed History of recent travel: No Physical Exam Const: COMMON NORMALS: no acute distress, patient oriented x3 and alert GENERAL APPEARANCE: cooperative and comfortable HENMT: COMMON NORMALS: normocephalic HEAD & SCALP: normocephalic MOUTH: moist mucous membranes abnormal (mildly dry) THROAT: posterior oropharynx normal and uvula midline Eye: COMMON NORMALS: Equal, round and reactive pupils present and EOMs intact bilaterally GENERAL EYE: other (strabismus) PUPIL: Yes Equal, round and reactive pupils present Neck/C-Spine: COMMON NORMALS: supple GENERAL: Yes normal visual inspection Resp: COMMON NORMALS: normal respiratory effort, No retractions and No use of accessory muscles AUSCULTATION: crackles Laterality: bilateral (bases) Cardio: COMMON NORMALS: regular rate, regular rhythm, S1 normal heart sound present, S2 normal heart sound present, No gallops present (Cardio), No clicks present (Cardio), No murmurs present (Cardio) and Peripheral pulses 2+ throughout RATE: regular rate RHYTHM: regular rhythm HEART SOUNDS: S1 normal heart sound present and S2 normal heart sound present PERIPHERAL PULSES: Peripheral pulses 2+ throughout GI: COMMON NORMALS: Normal to inspection, nondistended, normoactive bowel sounds present, Soft to palpation, non-tender and no masses PALPATION: Yes Soft to palpation : COMMON NORMALS: Yes no CVA tenderness BLADDER/KIDNEY EXAM: Yes no CVA tenderness Back/Pelvis: COMMON NORMALS: no CVA tenderness Extremity: COMMON NORMALS: normal to inspection, capillary refill normal and no pedal edema Neuro: COMMON NORMALS: patient oriented x3, CN's II-XII intact bilaterally, moves all extremities, no focal motor deficits and no sensory deficits noted SENSORIUM/ORIENTATION: Yes alert COORDINATION/BALANCE: [id number] test normal SPEECH: speech normal SENSORY EXAM: Yes extremities (normal) MOTOR EXAM: 5/5 motor strength present throughout COORDINATION: [id number] test normal Skin: COMMON NORMALS: no rashes or lesions noted GENERAL SKIN EXAM: no rashes or lesions noted and dry skin Course Vital Signs: Vital signs: Vital Signs Temperature 98.2 F 04/30/20 22:15 Pulse Rate 96 04/30/20 22:15 Respiratory Rate 20 H 04/30/20 22:15 Blood Pressure 125/85 04/30/20 22:15 Pulse Oximetry 96 04/30/20 22:15 MDM - Headache MDM Narrative: Medical decision making narrative: Patient is a 34-year-old male who comes into the ED with headache, productive cough and lab abnormality. Patient says that his PCP told him his ammonia lab was elevated. Physical exam- lungs had crackles sounds at bases bilaterally. CBC, UA, Mg, Alcohol and CMP were unremarkable. Patient's ammonia level was 63. Drug screen tested positive for benzos and marijuana. CT of the head showed no acute findings. Chest x-ray showed some possible pneumonia developing in the right lower lung. Patient was given Tylenol and azithromycin while here in the ED along with IV fluids. Patient was given a prescription for azithromycin to treat the pneumonia and also given Tessalon Perle prescription for cough. Patient told to follow-up with PCP in 7 to 10 days. Patient understood and agreed with plan. Lab Data: Attestation: I reviewed the patient's lab results. Labs: Lab Results 04/30/20 04/30/20 04/30/20 Range/Units 22:52 22:52 23:11 WBC 7.4 (4.0-10.0) 10^3/ uL RBC 4.51 (4.1-5.3) 10^6/u L Hgb 15.0 (11.7-16.6) g/dL Hct 42.9 (42.0-52.0) % MCV 95.1 H (80-94) fL MCH 33.3 (28.0-34.0) pg MCHC 35.0 (30.0-36.0) g/dL RDW 13.0 (12.1-15.1) % Plt Count 226 (130-400) 10^3/c mm MPV 8.8 (7.4-10.4) fL Neut % (Auto) 50.3 % Lymph % (Auto) 34.7 % Mcdonough % (Auto) 10.6 % Eos % (Auto) 3.2 % Baso % (Auto) 0.4 % Neut # (Auto) 3.7 (1.8-7.7) 10^3/u L Lymph # (Auto) 2.6 (0.8-4.8) 10^3/u L Mcdonough # (Auto) 0.8 (0.2-0.9) 10^3/u L Eos # (Auto) 0.2 (0.0-0.8) 10^3/u L Baso # (Auto) 0.0 (0.0-0.1) 10^3/u L Nucleated RBC % (a uto) 0 % Nucleated RBCs # 0.0 /100WBC Sodium (136-145) mmol/L Potassium (3.5-5.1) mmol/L Chloride (98-107) mmol/L Carbon Dioxide (22-29) mmol/L Anion Gap (5-19) BUN (6-20) mg/dL Creatinine (0.7-1.2) mg/dL GFR Calculation (90-130) mL/min Glucose (65-115) mg/dL Calculated Osmolal ity (285-295) mOsm/k g Calcium (8.5-10.5) mg/dL Magnesium (1.7-2.3) mg/dL Total Bilirubin (0.15-1.2) mg/dL AST (0-40) U/L ALT (0-41) U/L Alkaline Phosphata se (40-130) IU/L Ammonia (16-60) umol/L Creatine Kinase (39-308) U/L Total Protein (6.6-8.7) g/dL Albumin (3.5-5.2) g/dL Globulin (1.3-4.6) g/dL Lipase (13-60) U/L Urine Color Yellow (Yellow) Urine Appearance Clear (CLEAR) Urine pH 6 (5-7) Ur Specific Gravit y 1.010 (1.005-1.030) Urine Protein Neg (Negative) Urine Glucose (UA) Norm (Normal) Urine Ketones Negative (Negative) Urine Blood Neg (Negative) Urine Nitrate Negative (Negative) Urine Bilirubin Neg (NEGATIVE) Urine Urobilinogen Norm (Negative) mg/dL Ur Leukocyte Tian[place] ase Negative (Negative) Urine RBC Rare (0-2) /hpf Urine WBC Rare (0-5) /hpf Ur Squamous Epith Cells Rare (0-5) Urine Bacteria Trace (NONE) Urine Opiates Scre en Negative (Negative) ng/mL Ur Barbiturates Sc reen Negative (Negative) ng/mL Ur Phencyclidine S crn Negative (Negative) ng/mL Ur Amphetamines Sc reen Negative (Negative) ng/mL U Benzodiazepines Scrn Positive H (Negative) ng/mL Urine Cocaine Scre en Negative (Negative) ng/mL U Marijuana (THC) Screen Positive H (Negative) ng/mL Ethyl Alcohol (0-10) mg/dL 04/30/20 04/30/20 Range/Units 23:11 23:11 WBC (4.0-10.0) 10^3/ uL RBC (4.1-5.3) 10^6/u L Hgb (11.7-16.6) g/dL Hct (42.0-52.0) % MCV (80-94) fL MCH (28.0-34.0) pg MCHC (30.0-36.0) g/dL RDW (12.1-15.1) % Plt Count (130-400) 10^3/c mm MPV (7.4-10.4) fL Neut % (Auto) % Lymph % (Auto) % Mcdonough % (Auto) % Eos % (Auto) % Baso % (Auto) % Neut # (Auto) (1.8-7.7) 10^3/u L Lymph # (Auto) (0.8-4.8) 10^3/u L Mcdonough # (Auto) (0.2-0.9) 10^3/u L Eos # (Auto) (0.0-0.8) 10^3/u L Baso # (Auto) (0.0-0.1) 10^3/u L Nucleated RBC % (a uto) % Nucleated RBCs # /100WBC Sodium 136 (136-145) mmol/L Potassium 4.2 (3.5-5.1) mmol/L Chloride 101 (98-107) mmol/L Carbon Dioxide 26 (22-29) mmol/L Anion Gap 13.2 (5-19) BUN 7 (6-20) mg/dL Creatinine 0.6 L (0.7-1.2) mg/dL GFR Calculation 155.2 H (90-130) mL/min Glucose 99 (65-115) mg/dL Calculated Osmolal ity 278 L (285-295) mOsm/k g Calcium 9.1 (8.5-10.5) mg/dL Magnesium 1.8 (1.7-2.3) mg/dL Total Bilirubin 0.6 (0.15-1.2) mg/dL AST 43 H (0-40) U/L ALT 89 H (0-41) U/L Alkaline Phosphata se 72 (40-130) IU/L Ammonia 63 H (16-60) umol/L Creatine Kinase 67 (39-308) U/L Total Protein 7.5 (6.6-8.7) g/dL Albumin 4.2 (3.5-5.2) g/dL Globulin 3.3 (1.3-4.6) g/dL Lipase 32 (13-60) U/L Urine Color (Yellow) Urine Appearance (CLEAR) Urine pH (5-7) Ur Specific Gravit y (1.005-1.030) Urine Protein (Negative) Urine Glucose (UA) (Normal) Urine Ketones (Negative) Urine Blood (Negative) Urine Nitrate (Negative) Urine Bilirubin (NEGATIVE) Urine Urobilinogen (Negative) mg/dL Ur Leukocyte [place] ase (Negative) Urine RBC (0-2) /hpf Urine WBC (0-5) /hpf Ur Squamous Epith Cells (0-5) Urine Bacteria (NONE) Urine Opiates Scre en (Negative) ng/mL Ur Barbiturates Sc reen (Negative) ng/mL Ur Phencyclidine S crn (Negative) ng/mL Ur Amphetamines Sc reen (Negative) ng/mL U Benzodiazepines Scrn (Negative) ng/mL Urine Cocaine Scre en (Negative) ng/mL U Marijuana (THC) Screen (Negative) ng/mL Ethyl Alcohol < 10 (0-10) mg/dL Imaging Data^: CXR: Attestation: I personally reviewed and interpreted this imaging study as follows: My impression: Chest x-ray shows possible infiltrate in right lower lung lobe. Pending final radiology report. CT Head: Attestation: I personally reviewed and interpreted this imaging study as follows: Radiologist's impression: [address] [address] [address] Scan Report Signed Patient: Mick Smith Unit #: [id number] : 1985 Age/Sex: 34 / M ADM Date: 04/30/20 Loc: ER Room/Bed: Attending Dr: Ordering Provider/Ordering MD: Crow Tubbs Date of Service: 04/30/20 Procedure(s): CT head wo con* [id number] Accession Number(s): [id number] Report Number: [id number] PROCEDURE INFORMATION: Exam: CT Head Without Contrast Exam date and time: 04/30/2020 11:54 PM Age: 34 years old Clinical indication: Pain; Headache not specified; Prior surgery; Surgery type: Neck fusion TECHNIQUE: Imaging protocol: Computed tomography of the head without contrast. Radiation optimization: All CT scans at this facility use at least one of these dose optimization techniques: automated exposure control; mA and/or kV adjustment per patient size (includes targeted exams where dose is matched to clinical indication); or iterative reconstruction. COMPARISON: CT head wo con* [id number] 03/18/2020 6:20 AM RADIATION DOSE METRICS: Total DLP (mGy-cm): 875.07 FINDINGS: Brain: Still no apparent abnormal density in the brain. Still no hemorrhage. Ventricles: Still no ventriculomegaly. Bones/joints: Unremarkable. No acute fracture. Sinuses: Continued mucosal thickening in multiple paranasal sinuses. No air-fluid levels. Mastoid air cells: Hypoplastic left mastoids again evident. Right mastoids still unremarkable. Vasculature: ICA calcifications again evident. Soft tissues: Unremarkable. CT/CT head wo con* [id number] IMPRESSION: No acute findings. Chronic sinus disease again evident. Radiation Dose CTDIVOL = (mGy): DLP = 875.07 (mGy-cm) Dictated By: Paulette Celeste MD Signed By: Paulette Celeste MD Signed Date/Time: 05/01/2043 DD/ Discharge Plan Discharge Patient Disposition: Home, Self-Care Clinical Impression: Pneumonia Qualifiers: Pneumonia type: due to unspecified organism Laterality: right Lung location: lower lobe of lung Qualified Code(s): J18.9 - Pneumonia, unspecified organism Headache Qualifiers: Headache type: unspecified Headache chronicity pattern: acute headache Intractability: not intractable Qualified Code(s): R51 - Headache Condition: Stable Prescriptions: New azithromycin 250 mg tablet 250 mg PO DAILY 4 Days Qty: 4 RF: 0 Tessalon Perles 100 mg capsule 100 mg PO TID PRN (Reason: cough) Qty: 20 RF: 0 No Action divalproex 500 mg tablet,delayed release (DR/EC) 500 mg PO BID Qty: 60 RF: 2 prazosin 2 mg capsule 2 mg PO BEDTIME Qty: 30 RF: 2 propranolol 20 mg tablet 20 mg PO TID PRN (Reason: anxiety) Qty: 90 RF: 2 risperidone [Risperdal] 3 mg tablet 3 mg PO BID Qty: 60 RF: 1 pantoprazole [Protonix] 40 mg Tablet,Delayed Release (Dr/Ec) 40 mg PO BID RF: 0 lisinopril 10 mg Tablet 20 mg PO DAILY RF: 0 albuterol sulfate [ProAir HFA] 90 mcg/actuation Hfa Aerosol Inhaler 2 puff INHALATION Q6H PRN (Reason: Shortness Of Breath) RF: 0 atenolol 50 mg Tablet 50 mg PO BID RF: 0 cetirizine 10 mg Tablet 10 mg PO DAILY RF: 0 pregabalin 50 mg Capsule 50 mg PO DAILY RF: 0 Xifaxan 550 mg Tablet 550 mg PO BID RF: 0 Discharge Orders: Discharge Order (Routine); Ordered 05/01/20 Ordered By: Crow Tubbs Referrals: Rick Zapien NP [Primary Care Provider] - Discharge Diet: Regular Discharge Activity: Resume usual activity Patient Instructions: Headache, Pneumonia (ED) Activity Restrictions/Additional Instructions: Call your PCP and set up an appointment for reevaluation the next 7 to 10 days. Take full course of antibiotics as prescribed. Get your prescription for azithromycin and start taking dose tomorrow. Take Tylenol for any fever, pain or headache. Drink plenty of fluids and stay hydrated. Continue all home meds. Coding Level of Care Code ED Clinical Operations Consultant for [facility] Exam Comprehensive
[2020-04-30 23:13] LABS: Basophils % 0.4 %; Eosinophils # 0.2 10^3/uL (0.0-0.8); Eosinophils % 3.2 %; Hematocrit 42.9 % (42.0-52.0); Lymphocytes # 2.6 10^3/uL (0.8-4.8); Lymphocytes % 34.7 %; Mean Corpuscular Hemoglobin 33.3 pg (28.0-34.0); Mean Corpuscular Volume 95.1 fL (80-94); Mean Platelet Volume 8.8 fL (7.4-10.4); Monocytes # 0.8 10^3/uL (0.2-0.9); Monocytes % 10.6 %; Neutrophils # 3.7 10^3/uL (1.8-7.7); Neutrophils % 50.3 %; Nucleated Red Blood Cells % 0 %; Platelet Count 226 10^3/cmm (130-400); Red Blood Count 4.51 10^6/uL (4.1-5.3); White Blood Count 7.4 10^3/uL (4.0-10.0)
[2020-04-30 23:26] LABS: Bacteria Urine TRACE; Bilirubin Urine Neg (NEGATIVE); Blood Urine Neg (Negative); Glucose Urine UA Norm (Normal); Ketones Urine Negative (Negative); Leukocyte Esterase Urine Negative (Negative); Nitrate Urine Negative (Negative); Protein Urine Neg (Negative); RBC Urine RARE /hpf (0-2); Squamous Epithelial Cell Urine RARE (0-5); Urine Appearance Clear (CLEAR); Urine Color Yellow (Yellow); Urobilinogen Urine Norm (Negative); WBC Urine RARE /hpf (0-5); pH Urine 6 (5-7)
[2020-04-30 23:28] LABS: Alanine Aminotransferase 89 U/L (0-41); Albumin Level 4.2 g/dL (3.5-5.2); Alkaline Phosphatase 72 IU/L (40-130); Anion Gap 13.2 (5-19); Aspartate Amino Transferase 43 U/L (0-40); Blood Urea Nitrogen 7 mg/dL (6-20); Calcium 9.1 mg/dL (8.5-10.5); Carbon Dioxide 26 mmol/L (22-29); Chloride 101 mmol/L (98-107); Creatine Phosphokinase 67 U/L (39-308); Globulin 3.3 g/dL (1.3-4.6); Glomerular Filtration Rate 155.2 mL/min (90-130); Glucose 99 mg/dL (65-115); Lipase 32 U/L (13-60); Magnesium 1.8 mg/dL (1.7-2.3); Osmolality Calculated 278 mOsm/kg (285-295); Potassium 4.2 mmol/L (3.5-5.1); Sodium 136 mmol/L (136-145); Total Bilirubin 0.6 mg/dL (0.15-1.2); Total Protein 7.5 g/dL (6.6-8.7)
[2020-04-30 23:28] LABS: Amphetamines Screen Urine Negative (Negative); Barbiturates Screen Urine Negative (Negative); Benzodiazepines Screen Urine Positive (Negative); Cocaine Screen Urine Negative (Negative); Opiate Screen Urine Negative (Negative); PCP Screen Urine Negative (Negative); THC Screen Urine Positive (Negative)
[2020-04-30 23:29] LABS: Ammonia 63 umol/L (16-60)
[2020-04-30 23:30] LABS: Alcohol Level < 10 mg/dL (0-10)
--- NOTE | 2020-04-30 23:40 | CTR_ITS ---
PROCEDURE INFORMATION: Exam: CT Head Without Contrast Exam date and time: 04/30/2020 11:54 PM Age: 34 years old Clinical indication: Pain; Headache not specified; Prior surgery; Surgery type: Neck fusion TECHNIQUE: Imaging protocol: Computed tomography of the head without contrast. Radiation optimization: All CT scans at this facility use at least one of these dose optimization techniques: automated exposure control; mA and/or kV adjustment per patient size (includes targeted exams where dose is matched to clinical indication); or iterative reconstruction. COMPARISON: CT head wo con* [id number] 03/18/2020 6:20 AM RADIATION DOSE METRICS: Total DLP (mGy-cm): 875.07 FINDINGS: Brain: Still no apparent abnormal density in the brain. Still no hemorrhage. Ventricles: Still no ventriculomegaly. Bones/joints: Unremarkable. No acute fracture. Sinuses: Continued mucosal thickening in multiple paranasal sinuses. No air-fluid levels. Mastoid air cells: Hypoplastic left mastoids again evident. Right mastoids still unremarkable. Vasculature: ICA calcifications again evident. Soft tissues: Unremarkable. CT/CT head wo con* [id number] IMPRESSION: No acute findings. Chronic sinus disease again evident. Radiation Dose CTDIVOL = (mGy): DLP = 875.07 (mGy-cm)
[2020-05-01] MEDS: sodium chloride 0.9% 1,000 ML 999 ML IV (00:42)
[2020-05-01] MEDS: azithromycin 250 mg Tablet 500 MG PO (00:53)
[2020-05-01] MEDS: dexamethasone 4 mg/mL INJ 8 MG IVP (01:07)
[2020-05-01] MEDS: acetaminophen 500 mg Tablet PO (01:27)
[2020-05-01] MEDS: metoclopramide 5 mg/mL SDV 2 mL 10 MG IVP (01:28)
[2020-05-01 03:14] VITALS: BP 129/92; PULSE 96; RESP 16; TEMP 36.8; O2SAT 95
== END 2020-05-01 03:15 | disposition home or self-care (01) ==
PROVIDERS: Emergency Medicine; Emergency Provider Physician Assistant; PCP Nurse Practitioner Family
DX: R51 Headache (principal); J18.9 Pneumonia, unspecified organism; Z86.19 Personal history of other infectious and parasitic diseases; F17.210 Nicotine dependence, cigarettes, uncomplicated
CPT/HCPCS: 12345; 70450; 71045; 80053; 80306; 80307; 81001; 82140; 82550; 83690; 83735; 85025; 96361; 96374; 96375; 99283; A9270; J1100; J2765; J7030; Q0144

== ENCOUNTER 2020-05-29 00:17 | Emergency (ER) | payer MEDICAID, SELFPAY ==
[2020-05-29 00:18] VITALS: BP 111/70; PULSE 98; RESP 18; TEMP 36.6; O2SAT 94; BMI 27.5
--- NOTE | 2020-05-29 00:30 | XRR_ITS ---
PROCEDURE INFORMATION: Exam: XR Chest, 1 View Exam date and time: 05/29/2020 1:09 AM Age: 34 years old Clinical indication: Shortness of breath; Patient HX: C/O shortness of breath x 2 weeks; Additional info: SOB TECHNIQUE: Imaging protocol: XR of the chest Views: 1 view. COMPARISON: CR XR chest 1V portable [id number] 04/30/2020 10:32 PM FINDINGS: Lungs: Unremarkable. No consolidation. Pleural space: Unremarkable. No pleural effusion. No pneumothorax. Heart/Mediastinum: Unremarkable. No cardiomegaly. Bones/joints: Unremarkable. XR/XR chest 1V portable [id number] IMPRESSION: No acute findings.
[2020-05-29 01:05] LABS: Ammonia 69 umol/L (16-60)
--- NOTE | 2020-05-29 01:06 | W.ED.SOB ---
HPI - SOB/Dyspnea General: Chief Complaint: Shortness of Breath/Dyspnea Stated Complaint: SOB Time Seen by Provider: 05/29/20 00:18 Source: patient and EMS Mode of arrival: EMS Limitations: no limitations History of Present Illness: HPI Narrative: Boris is a 34-year jose angel male well-known to me. Comes in complaining of cough. His cough is nonproductive and has not had a fever. Denies any sore throat or any other complaints. He also request that his ammonia be checked while he is here. His greatest concern now is that he has had recurrent pneumonia. He denies any hemoptysis, fever, chills, chest pain or shortness of breath. He is unaware of anything that makes his symptoms better or worse. Associated symptoms: Deny abdominal pain, chest congestion, chest pain, diaphoresis, dizziness, extremity pain, fever(s), hemoptysis, lightheadedness, nausea, orthopnea, palpitations, syncope or vomiting Review of Systems Const: Denies: fever(s), chills, body aches, fatigue, malaise or diaphoresis Eyes: Denies: change in vision, blurry vision, blind spots, photophobia, eye discharge or eye redness ENMT: Denies: throat pain, odynophagia, hoarseness, swelling of lips/tongue, oral sores, ear or mastoid pain, ear discharge, change in hearing or nasal discharge Card: Denies: chest pain, palpitations, irregular heart rhythm, edema, lightheadedness, syncope, pre-syncope, dyspnea on exertion or orthopnea Resp: Reports: non-productive cough; Denies: dyspnea, productive cough, wheezing, hemoptysis or chest congestion GI: Denies: abdominal pain, nausea, vomiting, hematemesis, coffee ground emesis, heartburn, diarrhea, constipation, GI cramping, hematochezia or melena : Denies: flank pain, dysuria, urinary frequency, urinary urgency or hematuria Musc: Denies: neck pain, back pain, extremity pain, extremity swelling, joint pain, joint swelling, joint redness, joint warmth or joint stiffness Skin/Breast: Denies: rash, pruritus, erythema, skin tenderness or jaundice Neuro: Denies: headache(s), numbness in extremities, weakness in extremities, sensory changes, lack of coordination, difficulty walking, dizziness, vertigo, confusion, Slurred speech present or seizure-like activity Maxwell/Lymph: Denies: easy bruising, easy bleeding, petechiae, purpura or enlarged lymph nodes All/Imm: Denies: urticaria, throat swelling, tongue swelling, facial swelling or acute wheezing PFSH ED PFSH: Medical History Hepatitis C Intervertebral disc disorder with radiculopathy of lumbosacral region Spondylolisthesis, lumbosacral region Surgical History History of appendectomy History of fusion of cervical spine 2009 Dr. Beth Andino C5-C6 ACDFF History of knee surgery Family History Family/Other Heart disease Grandfather Dementia Social History Smoking and tobacco status: current every day smoker Alcohol intake: current Household members: spouse Marital status: Current occupational status: unemployed History of recent travel: No Physical Exam Const: COMMON NORMALS: no acute distress, patient oriented x3, no limitations, healthy appearing and well nourished GENERAL APPEARANCE: cooperative, well kempt and well developed HENMT: COMMON NORMALS: normocephalic, atraumatic, external ears normal, EAC's normal and Normal external nose present HEAD & SCALP: normal to inspection, normocephalic and atraumatic FACE & SINUS: normal facial exam and face symmetric NOSE: Normal external nose present and Normal nares present EXTERNAL EAR: Yes external ears normal EXTERNAL AUDITORY CANAL: EAC's normal MOUTH: Normal oral and palatal mucosa present, lip normal and tongue normal Eye: COMMON NORMALS: Equal, round and reactive pupils present and conjunctivae normal GENERAL EYE: appearance normal, both eyes and all related structures ALIGNMENT: Yes alignment normal PERIORBITAL: periorbital findings normal EYELID: eyelids normal CONJUNCTIVA: Yes conjunctivae normal SCLERA: sclerae normal PUPIL: Yes Equal, round and reactive pupils present Neck/C-Spine: COMMON NORMALS: full ROM, no lymphadenopathy, supple, no meningeal signs and no JVD GENERAL: Yes normal visual inspection and Yes trachea midline Chest: COMMONS NORMALS: normal inspection of the chest and normal palpation of entire chest wall Resp: COMMON NORMALS: normal respiratory effort, No retractions and No use of accessory muscles EFFORT & INSPECTION: Yes able to speak in complete sentences and Yes symmetric chest movement AUSCULTATION: no crackles, no rales, no rhonchi and no wheezes Cardio: COMMON NORMALS: no JVD, regular rate, regular rhythm, S1 normal heart sound present and S2 normal heart sound present RATE: regular rate RHYTHM: regular rhythm HEART SOUNDS: S1 normal heart sound present, S2 normal heart sound present, no click, no gallops, no murmurs, no rubs and abnormal split S2 GI: COMMON NORMALS: Soft to palpation and No hepatosplenomegaly present PALPATION: Yes Soft to palpation, No Tenderness to palpation present (GI), No Guarding due to palpation present (GI), No Rigid due to palpation, Yes No hepatosplenomegaly present, No Hernia present, No Palpable mass present and No Pulsatile mass present : COMMON NORMALS: Yes no CVA tenderness BLADDER/KIDNEY EXAM: Yes no CVA tenderness Back/Pelvis: COMMON NORMALS: no CVA tenderness, thoracic and lumbar spine normal to inspection, no thoracic nor lumbar tenderness and thoraco-lumbar ROM normal Extremity: COMMON NORMALS: normal to inspection, full ROM, capillary refill normal, no joint enlargement, no clubbing, cyanosis or edema and no calf tenderness Neuro: COMMON NORMALS: patient oriented x3, CN's II-XII intact bilaterally, moves all extremities, no focal motor deficits and no sensory deficits noted MENINGEAL SIGNS: Yes no meningeal signs SPEECH: speech normal Psych: COMMON NORMALS: mental status grossly normal, Normal thought process present, cooperative, normal affect, speech normal and activity/motor behavior normal APPEARANCE: Yes well kempt SPEECH: Yes normal speech THOUGHT PROCESS: Normal thought process present Skin: COMMON NORMALS: no rashes or lesions noted, turgor normal, no jaundice, no petechiae and no mottling GENERAL SKIN EXAM: no rashes or lesions noted and turgor normal Course Vital Signs: Vital signs: Vital Signs Temperature 97.9 F 05/29/20 00:18 Pulse Rate 88 05/29/20 01:30 Respiratory Rate 18 05/29/20 01:30 Blood Pressure 106/81 05/29/20 01:30 Pulse Oximetry 94 05/29/20 01:30 MDM - SOB/Dyspnea MDM Narrative: Medical decision making narrative: Boris is a 34-year-old male who comes in complaining of cough. There is no evidence pneumonia on his chest x-ray. As usual he wants his ammonia checked and it is found to be well within his normal range. He does not demonstrate any sign of hepatic encephalopathy clinically. We will discharge him home with antibiotics and something for cough. Lab Data: Attestation: I reviewed the patient's lab results. Labs: Lab Results 05/29/20 Range/Units 00:40 Ammonia 69 H (16-60) umol/L Imaging Data^: CXR: My impression: No acute cardiopulmonary findings. Discharge Plan Discharge Patient Disposition: Home, Self-Care Clinical Impression: Bronchitis Condition: Stable Prescriptions: New doxycycline hyclate 100 mg capsule 100 mg PO BID 10 Days Qty: 20 RF: 0 Tessalon Perles 100 mg capsule 200 mg PO TID PRN (Reason: cough) Qty: 60 RF: 0 No Action divalproex 500 mg tablet,delayed release (DR/EC) 500 mg PO BID Qty: 60 RF: 2 prazosin 2 mg capsule 2 mg PO BEDTIME Qty: 30 RF: 2 propranolol 20 mg tablet 20 mg PO TID PRN (Reason: anxiety) Qty: 90 RF: 2 risperidone [Risperdal] 3 mg tablet 3 mg PO BID Qty: 60 RF: 1 pantoprazole [Protonix] 40 mg Tablet,Delayed Release (Dr/Ec) 40 mg PO BID RF: 0 lisinopril 10 mg Tablet 20 mg PO DAILY RF: 0 albuterol sulfate [ProAir HFA] 90 mcg/actuation Hfa Aerosol Inhaler 2 puff INHALATION Q6H PRN (Reason: Shortness Of Breath) RF: 0 atenolol 50 mg Tablet 50 mg PO BID RF: 0 cetirizine 10 mg Tablet 10 mg PO DAILY RF: 0 pregabalin 50 mg Capsule 50 mg PO DAILY RF: 0 Xifaxan 550 mg Tablet 550 mg PO BID RF: 0 Tessalon Perles 100 mg capsule 100 mg PO TID PRN (Reason: cough) Qty: 20 RF: 0 Discharge Orders: Discharge Order (Routine); Ordered 05/29/20 Ordered By: Berta Alonso Referrals: Rick Zapien NP [Primary Care Provider] - 1-3 days Discharge Diet: Advance as tolerated Discharge Activity: Increase activity as tolerated Patient Instructions: Acute Bronchitis (ED) Activity Restrictions/Additional Instructions: Please return to the ER immediately for any of the signs or symptoms listed on your discharge instruction sheets, worsening/changing of your symptoms, you are not getting better as quickly as expected, or for ANY other cause or concerns. Discharge Date/Time: 05/29/20 01:31 Coding Level of Care Code ED Utilities And Maintenance Supervisor for Crystal Fwd Exam Comprehensive
[2020-05-29 01:30] VITALS: BP 106/81; PULSE 88; RESP 18; O2SAT 94
== END 2020-05-29 01:31 | disposition home or self-care (01) ==
PROVIDERS: Emergency Provider Emergency Medicine; PCP Nurse Practitioner Family
DX: J40 Bronchitis, not specified as acute or chronic (principal); Z86.19 Personal history of other infectious and parasitic diseases; F17.210 Nicotine dependence, cigarettes, uncomplicated
CPT/HCPCS: 12345; 36415; 71045; 82140; 99281; 99283

== ENCOUNTER 2020-06-11 16:37 | Outpatient (CLI) | payer MEDICAID, SELFPAY ==
[2020-06-11 20:14] LABS: HIV 1 & 2 Antibody Non-Reactive (Non-Reactiv); HIV 1 & 2 Antigen Non-Reactive (Non-Reactiv)
== END 2020-06-11 16:38 | disposition home or self-care (01) ==
LOC: LAB 16:43
PROVIDERS: PCP Nurse Practitioner Family; Visit Provider Nurse Practitioner
DX: B18.2 Chronic viral hepatitis C (principal)
CPT/HCPCS: 87806

== ENCOUNTER 2020-06-30 05:23 | Emergency (ER) | payer MEDICAID, SELFPAY ==
[2020-06-30 05:24] VITALS: BP 131/86; PULSE 100; RESP 16; TEMP 36.7; O2SAT 98; BMI 28.7
[2020-06-30 05:33] VITALS: BP 136/76; PULSE 96; RESP 16; O2SAT 96
--- NOTE | 2020-06-30 06:15 | ED_ITS ---
HPI - Nausea/Vomiting/Diarrhea General: Chief complaint: Nausea/Vomiting/Diarrhea Stated complaint: d Time Seen by Provider: 06/30/20 06:15 History of Present Illness: HPI Narrative: 34-year-old male presents emergency room complaining of diarrhea he states he has loose almost black stools for the last several days. He denies any bright red blood he also has little bit of a headache he is complaining of left hip pain he admits he used to drink heavily but he stopped he denies vomiting or fever. Denies any dysuria urgency or frequency no abdominal pain no recent antibiotic use. No mucousy stools. MD elicited complaint: nausea and diarrhea Pertinent past history: alcohol abuse Onset (ago): minute(s) Description of vomiting: watery Description of diarrhea: watery (Dark) Associated nausea: No Associated abdominal pain: No Location of pain: None Severity: mild Exacerbating factors: eating Associated symtoms: Reports anxiety and fatigue; Denies bloating, chest pain, cough, diaphoresis, decreased urine output, dysuria, fevers/chills, headache(s), anorexia, malaise, myalgias, nausea, palpitations, short of breath, syncope or weakness Treatment prior to arrival: none Review of Systems Const: Reports: fatigue; Denies: malaise or diaphoresis ENMT: Denies: throat pain, ear or mastoid pain, nasal discharge or nasal congestion Card: Denies: chest pain, palpitations or syncope Resp: Denies: dyspnea, productive cough or non-productive cough GI: Denies: nausea or bloating : Denies: dysuria Skin/Breast: Denies: rash or pruritus Neuro: Denies: headache(s) Psych: Reports: anxiety PFSH ED PFSH: Medical History Hepatitis C Intervertebral disc disorder with radiculopathy of lumbosacral region Spondylolisthesis, lumbosacral region Surgical History History of appendectomy History of fusion of cervical spine 2009 Dr. Beth Andino C5-C6 ACDFF History of knee surgery Family History Family/Other Heart disease Grandfather Dementia Social History Smoking and tobacco status: current every day smoker Alcohol intake: current Household members: spouse Marital status: Current occupational status: unemployed History of recent travel: No Physical Exam 2 Const: COMMON NORMALS: no acute distress GENERAL APPEARANCE: cooperative and comfortable ORIENTATION/CONSCIOUSNESS: Yes awake, Yes oriented to person, Yes oriented to place and Yes oriented to time HENMT: COMMON NORMALS: normocephalic and atraumatic HEAD & SCALP: normocephalic and atraumatic Eye: COMMON NORMALS: Equal, round and reactive pupils present, EOMs intact bilaterally, conjunctivae normal and no scleral icterus CONJUNCTIVA: Yes conjunctivae normal PUPIL: Yes Equal, round and reactive pupils present Neck/C-Spine: COMMON NORMALS: full ROM, no lymphadenopathy, supple and no JVD Lymph: LYMPHATIC: no lymphadenopathy noted and no lymphedema noted Resp: COMMON NORMALS: normal respiratory effort, No retractions, No use of accessory muscles and clear to auscultation bilaterally AUSCULTATION: clear to auscultation bilaterally Cardio: COMMON NORMALS: no JVD, regular rate, regular rhythm and No murmurs present (Cardio) RATE: regular rate RHYTHM: regular rhythm GI: COMMON NORMALS: Soft to palpation and No hepatosplenomegaly present AUSCULTATION: Yes normoactive bowel sounds PALPATION: Yes Soft to palpation, No Tenderness to palpation present (GI), No Guarding due to palpation present (GI) and Yes No hepatosplenomegaly present OTHER: Rectal exam refused by patient Extremity: COMMON NORMALS: normal to inspection, capillary refill normal, no clubbing, cyanosis or edema, no calf tenderness and no pedal edema Neuro: SENSORIUM/ORIENTATION: Yes oriented to person, Yes oriented to place and Yes oriented to time Skin: COMMON NORMALS: no rashes or lesions noted GENERAL SKIN EXAM: no rashes or lesions noted Course Vital Signs: Vital signs: Vital Signs Temperature 98.1 F 06/30/20 05:24 Pulse Rate 72 06/30/20 08:29 Respiratory Rate 18 06/30/20 08:29 Blood Pressure 129/81 06/30/20 08:29 Pulse Oximetry 99 06/30/20 08:29 MDM - Nausea/Vomiting/Diarrhea MDM Narrative: Medical decision making narrative: Patient declined rectal exam. Will discharge home we will get stool sample for C. difficile and culture. Labs do not indicate a upper GI bleed at this point. Continue his pantoprazole. Follow-up with his primary care doctor. Return if worsens. Lab Data: Labs: Lab Results 06/30/20 06/30/20 Range/Units 06:30 06:30 WBC 9.1 (4.0-10.0) 10^3/ uL RBC 4.48 (4.1-5.3) 10^6/u L Hgb 14.5 (11.7-16.6) g/dL Hct 41.4 L (42.0-52.0) % MCV 92.4 (80-94) fL MCH 32.4 (28.0-34.0) pg MCHC 35.0 (30.0-36.0) g/dL RDW 11.9 L (12.1-15.1) % Plt Count 229 (130-400) 10^3/c mm MPV 8.9 (7.4-10.4) fL Neut % (Auto) 47.9 % Lymph % (Auto) 39.0 % [place] % (Auto) 9.4 % Eos % (Auto) 3.0 % Baso % (Auto) 0.3 % Neut # (Auto) 4.36 (1.8-7.7) 10^3/u L Lymph # (Auto) 3.6 (0.8-4.8) 10^3/u L [place] # (Auto) 0.9 (0.2-0.9) 10^3/u L Eos # (Auto) 0.3 (0.0-0.8) 10^3/u L Baso # (Auto) 0.0 (0.0-0.1) 10^3/u L Nucleated RBC % (a uto) 0 % Nucleated RBCs # 0.0 /100WBC Sodium 128 L (136-145) mmol/L Potassium 3.9 (3.5-5.1) mmol/L Chloride 97 L (98-107) mmol/L Carbon Dioxide 22 (22-29) mmol/L Anion Gap 12.9 (5-19) BUN 7 (6-20) mg/dL Creatinine 0.5 L (0.7-1.2) mg/dL GFR Calculation 191.5 H (90-130) mL/min Glucose 106 (65-115) mg/dL Calculated Osmolal ity 262 L (285-295) mOsm/k g Calcium 8.4 L (8.5-10.5) mg/dL Total Bilirubin 1.1 (0.15-1.2) mg/dL AST 30 (0-40) U/L ALT 46 H (0-41) U/L Alkaline Phosphata se 65 (40-130) IU/L C-Reactive Protein 0.5 (0.0-4.9) mg/L Total Protein 7.6 (6.6-8.7) g/dL Albumin 4.6 (3.5-5.2) g/dL Globulin 3.0 (1.3-4.6) g/dL Lipase 31 (13-60) U/L Discharge Plan Discharge Patient Disposition: Home Clinical Impression: Diarrhea, Hip pain, left Condition: Stable Prescriptions: No Action divalproex 500 mg tablet,delayed release (DR/EC) 500 mg PO BID Qty: 60 RF: 2 prazosin 2 mg capsule 2 mg PO BEDTIME Qty: 30 RF: 2 propranolol 20 mg tablet 20 mg PO TID PRN (Reason: anxiety) Qty: 90 RF: 2 risperidone [Risperdal] 3 mg tablet 3 mg PO BID Qty: 60 RF: 1 pantoprazole [Protonix] 40 mg Tablet,Delayed Release (Dr/Ec) 40 mg PO BID RF: 0 lisinopril 10 mg Tablet 20 mg PO DAILY RF: 0 albuterol sulfate [ProAir HFA] 90 mcg/actuation Hfa Aerosol Inhaler 2 puff INHALATION Q6H PRN (Reason: Shortness Of Breath) RF: 0 atenolol 50 mg Tablet 50 mg PO BID RF: 0 cetirizine 10 mg Tablet 10 mg PO DAILY RF: 0 pregabalin 50 mg Capsule 50 mg PO DAILY RF: 0 Xifaxan 550 mg Tablet 550 mg PO BID RF: 0 Tessalon Perles 100 mg capsule 100 mg PO TID PRN (Reason: cough) Qty: 20 RF: 0 Tessalon Perles 100 mg capsule 200 mg PO TID PRN (Reason: cough) Qty: 60 RF: 0 Discharge Orders: Discharge Order (Routine); Ordered 08/17/20 Ordered By: Sriram Chicas Other Ambulatory Orders: Clostridioides Difficile PCR (Routine) Timeframe: 1 Week Facility: [facility] - Location: Lab - Main Lab Ordered By: Sriram Chicas Enteric Bacterial Panel by PCR (Routine) Timeframe: 1 Week Facility: [facility] - Location: Lab - Main Lab Ordered By: Sriram Chicas Referrals: Rick Zapien NP [Primary Care Provider] - Discharge Diet: Clear Liquid Discharge Activity: Increase activity as tolerated Activity Restrictions/Additional Instructions: Clear liquid diet for 24 to 48 hours advance as tolerated. Stools cultures have been ordered. Please return samples to the outpatient lab. Discharge Date/Time: 06/30/20 08:29 Coding Level of Care Code ED Blood Bank Order Control Clerk for Crystal Fwd Exam Comprehensive
--- NOTE | 2020-06-30 06:25 | XR_ITS ---
WS: [id number] EXAM: AP PELVIS AND 2 VIEWS OF THE LEFT HIP DATE OF EXAMINATION: 06/30/2020, 0651 hours COMPARISON: None. HISTORY: Patient is 34 years old with history of waking up with pain this morning. No reported trauma. FINDINGS: Bone density is normal in appearance. There are findings of a transitional L5-S1 juncture. Slight art hritis within both SI joints. Left hip joint is unremarkable. No fracture, lytic or blastic process. Phleboliths in the deep pelvis. No soft tissue abnormality. XR/XR hip LT 2-3V wo/w pel* [id number] IMPRESSION: No acute bony abnormality.
[2020-06-30] MEDS: sodium chloride 0.9% 1,000 ML 999 ML IV (06:32)
[2020-06-30] MEDS: ondansetron 2 mg/ML SDV 2 mL 4 MG IVP (06:35)
[2020-06-30 06:53] LABS: Basophils % 0.3 %; Eosinophils # 0.3 10^3/uL (0.0-0.8); Hematocrit 41.4 % (42.0-52.0); Hemoglobin 14.5 g/dL (11.7-16.6); Lymphocytes # 3.6 10^3/uL (0.8-4.8); Mean Corpuscular Hemoglobin 32.4 pg (28.0-34.0); Mean Corpuscular Volume 92.4 fL (80-94); Mean Platelet Volume 8.9 fL (7.4-10.4); Monocytes # 0.9 10^3/uL (0.2-0.9); Monocytes % 9.4 %; Neutrophils # 4.36 10^3/uL (1.8-7.7); Neutrophils % 47.9 %; Nucleated Red Blood Cells % 0 %; Platelet Count 229 10^3/cmm (130-400); Red Blood Count 4.48 10^6/uL (4.1-5.3); Red Cell Distribution Width 11.9 % (12.1-15.1); White Blood Count 9.1 10^3/uL (4.0-10.0)
[2020-06-30 07:20] LABS: Alanine Aminotransferase 46 U/L (0-41); Albumin Level 4.6 g/dL (3.5-5.2); Alkaline Phosphatase 65 IU/L (40-130); Anion Gap 12.9 (5-19); Aspartate Amino Transferase 30 U/L (0-40); Blood Urea Nitrogen 7 mg/dL (6-20); C Reactive Protein 0.5 mg/L (0.0-4.9); Calcium 8.4 mg/dL (8.5-10.5); Carbon Dioxide 22 mmol/L (22-29); Chloride 97 mmol/L (98-107); Glomerular Filtration Rate 191.5 mL/min (90-130); Glucose 106 mg/dL (65-115); Lipase 31 U/L (13-60); Osmolality Calculated 262 mOsm/kg (285-295); Potassium 3.9 mmol/L (3.5-5.1); Sodium 128 mmol/L (136-145); Total Bilirubin 1.1 mg/dL (0.15-1.2); Total Protein 7.6 g/dL (6.6-8.7)
[2020-06-30 07:32] VITALS: BP 120/78; PULSE 75; RESP 18; O2SAT 98
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
[2020-06-30 08:29] VITALS: BP 129/81; PULSE 72; RESP 18; O2SAT 99
== END 2020-06-30 08:29 | disposition home or self-care (01) ==
PROVIDERS: Emergency Medicine; Emergency Provider Family Medicine; PCP Nurse Practitioner Family
DX: R19.7 Diarrhea, unspecified (principal); M25.552 Pain in left hip; Z86.19 Personal history of other infectious and parasitic diseases; F17.210 Nicotine dependence, cigarettes, uncomplicated
CPT/HCPCS: 12345; 73502; 80053; 83690; 85025; 86140; 96361; 96374; 96375; 99282; 99283; J0131; J2405; J7030

== ENCOUNTER 2020-07-25 05:36 | Emergency (ER) | payer MEDICAID, SELFPAY ==
[2020-07-25 05:39] VITALS: BP 137/80; PULSE 102; RESP 17; TEMP 37; O2SAT 96; BMI 30.1
--- NOTE | 2020-07-25 05:48 | W.ED.BACK ---
HPI - Back Pain/Injury General: Chief Complaint: Back Pain/Injury Stated Complaint: BACK PAIN Time Seen by Provider: 07/25/20 05:47 History of Present Illness: HPI Narrative: 35-year-old male presents emergency room with complaint of back pain. He was doing some lifting and cleaning around his house yesterday had strained his back. No difficulty with urinary retention or fecal incontinence. He has no significant radicular pain. In the exam room he is able to get up onto the bed from the end of the exam gurney with the rails up and sits crosslegged in the bed. He repositions freely and without difficulty in the bed when asked to. Associated symptoms: Deny abdominal pain, chills, dysuria, fatigue, fever(s), nausea, urinary urgency or vomiting Review of Systems Const: Denies: fever(s), chills, body aches, change in appetite, fatigue or malaise ENMT: Denies: throat pain, ear or mastoid pain, nasal discharge or nasal congestion Card: Denies: chest pain, edema, dyspnea on exertion or orthopnea Resp: Denies: dyspnea, productive cough or non-productive cough GI: Denies: abdominal pain, nausea, vomiting, hematemesis, coffee ground emesis, diarrhea, constipation, bloating, hematochezia or melena : Denies: flank pain, dysuria, urinary frequency or urinary urgency Skin/Breast: Denies: rash or pruritus PFSH ED PFSH: Medical History Hepatitis C Intervertebral disc disorder with radiculopathy of lumbosacral region Spondylolisthesis, lumbosacral region Surgical History History of appendectomy History of fusion of cervical spine 2009 Dr. Beth Andino C5-C6 ACDFF History of knee surgery Family History Family/Other Heart disease Grandfather Dementia Social History Smoking and tobacco status: current every day smoker Alcohol intake: current Household members: spouse Marital status: Current occupational status: unemployed History of recent travel: No Physical Exam Const: COMMON NORMALS: no acute distress GENERAL APPEARANCE: cooperative and comfortable ORIENTATION/CONSCIOUSNESS: Yes awake, Yes oriented to person, Yes oriented to place and Yes oriented to time HENMT: COMMON NORMALS: normocephalic, atraumatic and hearing grossly normal bilaterally HEAD & SCALP: normocephalic and atraumatic Neck/C-Spine: COMMON NORMALS: no JVD Resp: COMMON NORMALS: normal respiratory effort, No retractions, No use of accessory muscles and clear to auscultation bilaterally AUSCULTATION: clear to auscultation bilaterally Cardio: COMMON NORMALS: no JVD, regular rate, regular rhythm and No murmurs present (Cardio) RATE: regular rate RHYTHM: regular rhythm Extremity: COMMON NORMALS: normal to inspection, capillary refill normal, no clubbing, cyanosis or edema, no calf tenderness and no pedal edema NARRATIVE EXTREMITY EXAM: Straight leg raising negative dorsi and plantar flex strength 5 of 5 patient able to heel and toe walk. Muscle strength in lower extremities 5/5. Neuro: SENSORIUM/ORIENTATION: Yes oriented to person, Yes oriented to place and Yes oriented to time Course Vital Signs: Vital signs: Vital Signs Temperature 98.6 F 07/25/20 05:39 Pulse Rate 102 H 07/25/20 05:39 Respiratory Rate 17 07/25/20 05:39 Blood Pressure 137/80 07/25/20 05:39 Pulse Oximetry 96 07/25/20 05:39 MDM - Back Pain/Injury MDM Narrative: Medical decision making narrative: Patient given muscle relaxer and Tylenol he has listed allergies to anti-inflammatories he states he gets anaphylaxis. At this point would not recommend any narcotics for chronic musculoskeletal low back pain patient given educational handouts advised Tylenol and muscle relaxers. Discharge Plan Discharge Patient Disposition: Home Clinical Impression: Strain of lumbar region Condition: Stable Prescriptions: New tizanidine 4 mg capsule 4 mg PO Q6H PRN (Reason: muscle spasticity) Qty: 20 RF: 0 No Action divalproex 500 mg tablet,delayed release (DR/EC) 500 mg PO BID Qty: 60 RF: 2 prazosin 2 mg capsule 2 mg PO BEDTIME Qty: 30 RF: 2 propranolol 20 mg tablet 20 mg PO TID PRN (Reason: anxiety) Qty: 90 RF: 2 risperidone [Risperdal] 3 mg tablet 3 mg PO BID Qty: 60 RF: 1 pantoprazole [Protonix] 40 mg Tablet,Delayed Release (Dr/Ec) 40 mg PO BID RF: 0 lisinopril 10 mg Tablet 20 mg PO DAILY RF: 0 albuterol sulfate [ProAir HFA] 90 mcg/actuation Hfa Aerosol Inhaler 2 puff INHALATION Q6H PRN (Reason: Shortness Of Breath) RF: 0 atenolol 50 mg Tablet 50 mg PO BID RF: 0 cetirizine 10 mg Tablet 10 mg PO DAILY RF: 0 pregabalin 50 mg Capsule 50 mg PO DAILY RF: 0 Xifaxan 550 mg Tablet 550 mg PO BID RF: 0 Tessalon Perles 100 mg capsule 100 mg PO TID PRN (Reason: cough) Qty: 20 RF: 0 Tessalon Perles 100 mg capsule 200 mg PO TID PRN (Reason: cough) Qty: 60 RF: 0 Discharge Orders: Discharge Order (Routine); Ordered 07/25/20 Ordered By: Sriram Chicas Referrals: Rick Zapien NP [Primary Care Provider] - Discharge Diet: Usual diet Discharge Activity: Increase activity as tolerated Patient Instructions: Chronic Back Pain (ED), Back Pain (ED) Activity Restrictions/Additional Instructions: Tylenol as needed in addition to the muscle relaxer prescribed to you here. Discharge Date/Time: 07/25/20 06:19 Coding Level of Care Code ED Ship Boat Or Barge Mate for Crystal Fwd Exam Detailed
[2020-07-25] MEDS: orphenadrine 30 mg/mL Inj 2 mL 60 MG IVP (06:13)
== END 2020-07-25 06:19 | disposition home or self-care (01) ==
PROVIDERS: Emergency Provider Family Medicine; PCP Nurse Practitioner Family
DX: S39.012A Strain of muscle, fascia and tendon of lower back, initial encounter (principal); Z86.19 Personal history of other infectious and parasitic diseases; F17.210 Nicotine dependence, cigarettes, uncomplicated; X50.9XXA Other and unspecified overexertion or strenuous movements or postures, initial encounter
CPT/HCPCS: 12345; 96374; 99282; 99283; J2360

== ENCOUNTER 2020-09-24 21:02 | Emergency (ER) | payer MEDICAID, SELFPAY ==
[2020-09-24 21:31] VITALS: BP 126/85; PULSE 89; RESP 19; TEMP 36.7; O2SAT 96; BMI 28.8
--- NOTE | 2020-09-24 21:45 | ED_ITS ---
HPI - Back Pain/Injury General: Chief Complaint: Back Pain/Injury Stated Complaint: right side pain Time Seen by Provider: 09/24/20 21:38 Source: patient Mode of arrival: ambulatory Limitations: no limitations History of Present Illness: HPI Narrative: 35-year-old male has a history of chronic back pain. He states he has been having right-sided back pain for 4 months that just gradually gets worse. He states he is having some shooting pains down his right leg. Denies any bowel or bladder incontinence. Patient denies any worsening or improving factors. He states the pain is currently an 8 out of 10. Associated symptoms: Deny abdominal pain, chills, dysuria, fever(s), nausea or vomiting Review of Systems Const: Denies: fever(s), chills, body aches or change in appetite Eyes: Denies: blurry vision or eye discomfort ENMT: Denies: throat pain or dental pain Card: Denies: chest pain Resp: Denies: dyspnea GI: Denies: abdominal pain, nausea, vomiting or diarrhea : Denies: dysuria Musc: Reports: back pain Skin/Breast: Denies: rash Neuro: Denies: headache(s) Psych: Denies: depression Maxwell/Lymph: Denies: easy bruising All/Imm: Denies: urticaria PFSH ED PFSH: Medical History (Updated 09/24/20 @ 21:45 by Chanda Fonseca MD) Hepatitis C Intervertebral disc disorder with radiculopathy of lumbosacral region Spondylolisthesis, lumbosacral region Surgical History History of appendectomy History of fusion of cervical spine 2009 Dr. Beth Andino C5-C6 ACDFF History of knee surgery Family History Family/Other Heart disease Grandfather Dementia Social History Smoking and tobacco status: current every day smoker Alcohol intake: current Household members: spouse Marital status: Current occupational status: unemployed History of recent travel: No Physical Exam Const: COMMON NORMALS: no acute distress, patient oriented x3 and healthy appearing HENMT: COMMON NORMALS: normocephalic and atraumatic HEAD & SCALP: normocephalic and atraumatic Eye: COMMON NORMALS: Equal, round and reactive pupils present and EOMs intact bilaterally PUPIL: Yes Equal, round and reactive pupils present Neck/C-Spine: COMMON NORMALS: full ROM and supple Chest: COMMONS NORMALS: normal inspection of the chest and normal palpation of entire chest wall Resp: COMMON NORMALS: normal respiratory effort, No retractions, No use of accessory muscles and clear to auscultation bilaterally AUSCULTATION: clear to auscultation bilaterally Cardio: COMMON NORMALS: regular rate, regular rhythm and No murmurs present (Cardio) RATE: regular rate RHYTHM: regular rhythm GI: COMMON NORMALS: Normal to inspection, nondistended, normoactive bowel sounds present, Soft to palpation, non-tender and no masses PALPATION: Yes Soft to palpation Back/Pelvis: OTHER: Tenderness to right lower back with no midline tenderness. No saddle anesthesia Extremity: COMMON NORMALS: normal to inspection and full ROM Neuro: COMMON NORMALS: patient oriented x3, moves all extremities and no focal motor deficits Psych: COMMON NORMALS: mental status grossly normal, Normal thought process present and cooperative THOUGHT PROCESS: Normal thought process present Skin: COMMON NORMALS: no rashes or lesions noted and no wounds GENERAL SKIN EXAM: no rashes or lesions noted Course Vital Signs: Vital signs: Vital Signs Temperature 98.1 F 09/24/20 21:31 Pulse Rate 89 09/24/20 21:31 Respiratory Rate 19 H 09/24/20 21:31 Blood Pressure 126/85 09/24/20 21:31 Pulse Oximetry 96 09/24/20 21:31 MDM - Back Pain/Injury MDM Narrative: Medical decision making narrative: Patient presents with back pain that is chronic in nature. He likely has sciatica as well. Patient given Decadron here and will prescribe Naprosyn and Robaxin for home. He is to follow-up with his PCP as scheduled and return if worsening. Discharge Plan Discharge Patient Disposition: Home Clinical Impression: Sciatica Qualifiers: Laterality: right Qualified Code(s): M54.31 - Sciatica, right side Condition: Stable Prescriptions: New Robaxin-750 750 mg tablet 750 mg PO Q6H Qty: 30 RF: 0 Naprosyn 500 mg tablet 500 mg PO BID PRN (Reason: pain) Qty: 20 RF: 0 No Action divalproex 500 mg tablet,delayed release (DR/EC) 500 mg PO BID Qty: 60 RF: 2 prazosin 2 mg capsule 2 mg PO BEDTIME Qty: 30 RF: 2 propranolol 20 mg tablet 20 mg PO TID PRN (Reason: anxiety) Qty: 90 RF: 2 risperidone [Risperdal] 3 mg tablet 3 mg PO BID Qty: 60 RF: 1 pantoprazole [Protonix] 40 mg Tablet,Delayed Release (Dr/Ec) 40 mg PO BID RF: 0 lisinopril 10 mg Tablet 20 mg PO DAILY RF: 0 albuterol sulfate [ProAir HFA] 90 mcg/actuation Hfa Aerosol Inhaler 2 puff INHALATION Q6H PRN (Reason: Shortness Of Breath) RF: 0 atenolol 50 mg Tablet 50 mg PO BID RF: 0 cetirizine 10 mg Tablet 10 mg PO DAILY RF: 0 pregabalin 50 mg Capsule 50 mg PO DAILY RF: 0 Xifaxan 550 mg Tablet 550 mg PO BID RF: 0 Tessalon Perles 100 mg capsule 100 mg PO TID PRN (Reason: cough) Qty: 20 RF: 0 Tessalon Perles 100 mg capsule 200 mg PO TID PRN (Reason: cough) Qty: 60 RF: 0 tizanidine 4 mg capsule 4 mg PO Q6H PRN (Reason: muscle spasticity) Qty: 20 RF: 0 Discharge Orders: Discharge Order (Routine); Ordered 09/24/20 Ordered By: Chanda Fonseca Referrals: Rick Zapien NP [Primary Care Provider] - 1-3 days Discharge Diet: Advance as tolerated Discharge Activity: Resume usual activity Patient Instructions: Sciatica (ED) Coding Level of Care Code ED Meat Carrier for Crystal Golden
[2020-09-24] MEDS: dexamethasone 4 mg/mL INJ 10 MG IM (22:01)
[2020-09-24 22:05] VITALS: RESP 19; TEMP 36.7; O2SAT 96
== END 2020-09-24 22:06 | disposition home or self-care (01) ==
PROVIDERS: Emergency Provider Emergency Medicine; PCP Nurse Practitioner Family
DX: M54.31 Sciatica, right side (principal); Z86.19 Personal history of other infectious and parasitic diseases; F17.210 Nicotine dependence, cigarettes, uncomplicated
CPT/HCPCS: 12345; 96372; 99281; 99283; J1100

== ENCOUNTER 2021-04-19 04:11 | Emergency (ER) | payer MEDICAID, SELFPAY ==
[2021-04-19 04:16] VITALS: BP 131/76; PULSE 88; RESP 18; TEMP 36.6; O2SAT 96; BMI 28.1
--- NOTE | 2021-04-19 04:36 | XRR_ITS ---
PROCEDURE INFORMATION: Exam: XR Chest Exam date and time: 04/19/2021 4:44 AM Age: 35 years old Clinical indication: Dyspnea; Additional info: AMS TECHNIQUE: Imaging protocol: XR of the chest. Views: 1 view. COMPARISON: CR XR chest 1V portable [id number] 05/29/2020 1:00 AM FINDINGS: Lungs: Unremarkable. No consolidation. Pleural spaces: Unremarkable. No pleural effusion. No pneumothorax. Heart/Mediastinum: Unremarkable. No cardiomegaly. Bones/joints: ACDF hardware in the lower cervical spine. XR/XR chest 1V portable [id number] IMPRESSION: No acute disease.
--- NOTE | 2021-04-19 04:36 | ED_ITS ---
HPI - Altered Mental Status General: Chief Complaint: Overdose Stated Complaint: OD Time Seen by Provider: 04/19/21 04:17 History of Present Illness: HPI narrative: 35-year-old male with a history of hepatitis C and liver disease. He has a history of high ammonia levels. He notes he has been more confused the last day or 2. He believes he is taken 2 doses of his blood pressure medication instead of just 1. Feeling tired and woozy. He also complains of pain to his right back, and down his right posterior thigh. MD complaint: altered mental status and confusion Onset (ago): hour(s) Severity: moderate Consistency of symptoms: Waxing and Waning Context: history of similar presentation and liver disease Associated symptoms: Deny auditory hallucinations, visual hallucinations, depression or suicidal ideation Review of Systems Const: Denies: fever(s) or chills Eyes: Reports: blurry vision ENMT: Denies: throat pain Card: Denies: chest pain or palpitations Resp: Denies: dyspnea, productive cough or non-productive cough GI: Reports: nausea; Denies: abdominal pain or vomiting : Denies: flank pain or difficulty urinating Neuro: Reports: headache(s) and confusion; Denies: numbness in extremities or weakness in extremities Psych: Denies: depression, visual hallucinations, auditory hallucinations or suicidal ideation [facility] ED PFSH: Medical History (Updated 04/19/21 @ 06:36 by Clement Garcia DO) Hepatitis C Intervertebral disc disorder with radiculopathy of lumbosacral region Spondylolisthesis, lumbosacral region Surgical History History of appendectomy History of fusion of cervical spine 2009 Dr. Beth Andino C5-C6 ACDFF History of knee surgery Family History Family/Other Heart disease Grandfather Dementia Social History Smoking and tobacco status: current every day smoker Alcohol intake: current Household members: spouse Marital status: Current occupational status: unemployed History of recent travel: No Physical Exam Const: COMMON NORMALS: no acute distress and patient oriented x3 GENERAL APPEARANCE: lethargic ORIENTATION/CONSCIOUSNESS: Yes lethargic HENMT: COMMON NORMALS: normocephalic HEAD & SCALP: normocephalic Chest: COMMONS NORMALS: normal inspection of the chest Resp: COMMON NORMALS: normal respiratory effort, No retractions, No use of accessory muscles and clear to auscultation bilaterally AUSCULTATION: clear to auscultation bilaterally Cardio: COMMON NORMALS: regular rate and regular rhythm RATE: regular rate RHYTHM: regular rhythm GI: COMMON NORMALS: Normal to inspection, nondistended, normoactive bowel sounds present, Soft to palpation and non-tender PALPATION: Yes Soft to palpation Neuro: COMMON NORMALS: patient oriented x3 SENSORIUM/ORIENTATION: Yes lethargic Course Vital Signs: Vital signs: Vital Signs Temperature 98 F 04/19/21 06:38 Pulse Rate 90 04/19/21 06:38 Respiratory Rate 18 04/19/21 06:38 Blood Pressure 125/84 04/19/21 06:38 Pulse Oximetry 96 04/19/21 06:38 MDM - Altered Mental Status MDM Narrative: Medical decision making narrative: 1 L fluid bolus given. Blood pressure remained stable. Ammonia level is not elevated. He has a mildly elevated white blood cell count but a normal differential. No fever. Other labs are benign. He will be allowed home. His request for Tylenol 3 was denied. Lab Data: Labs: Lab Results 04/19/21 04/19/21 04/19/21 Range/Units 05:00 05:00 05:00 WBC 15.4 H (4.0-10.0) 10^3/ uL RBC 4.15 (4.1-5.3) 10^6/u L Hgb 13.6 (11.7-16.6) g/dL Hct 38.4 L (42.0-52.0) % MCV 92.5 (80-94) fL MCH 32.8 (28.0-34.0) pg MCHC 35.4 (30.0-36.0) g/dL RDW 12.8 (12.1-15.1) % Plt Count 274 (130-400) 10^3/c mm MPV 8.4 (7.4-10.4) fL Neut % (Auto) 64.9 % Lymph % (Auto) 21.8 % [place] % (Auto) 9.3 % Eos % (Auto) 3.2 % Baso % (Auto) 0.3 % Neut # (Auto) 10.01 H (1.8-7.7) 10^3/u L Lymph # (Auto) 3.4 (0.8-4.8) 10^3/u L [place] # (Auto) 1.4 H (0.2-0.9) 10^3/u L Eos # (Auto) 0.5 (0.0-0.8) 10^3/u L Baso # (Auto) 0.0 (0.0-0.1) 10^3/u L Nucleated RBC % (a uto) 0 % Nucleated RBCs # 0.0 /100WBC PT 13.70 (12.1-14.9) SECO NDS INR 1.02 (0.8-1.2) Sodium 129 L (136-145) mmol/L Potassium 3.6 (3.5-5.1) mmol/L Chloride 97 L (98-107) mmol/L Carbon Dioxide 22 (22-29) mmol/L Anion Gap 13.6 (5-19) BUN 8 (6-20) mg/dL Creatinine 0.8 (0.7-1.2) mg/dL GFR Calculation 110.7 (90-130) mL/min Glucose 107 (65-115) mg/dL Calculated Osmolal ity 267 L (285-295) mOsm/k g Calcium 7.8 L (8.5-10.5) mg/dL Total Bilirubin 0.5 (0.15-1.2) mg/dL AST 18 (0-40) U/L ALT 26 (0-41) U/L Alkaline Phosphata se 130 (40-130) IU/L Ammonia (16-60) umol/L Total Protein 6.8 (6.6-8.7) g/dL Albumin 4.1 (3.5-5.2) g/dL Globulin 2.7 (1.3-4.6) g/dL Urine Color (Yellow) Urine Appearance (CLEAR) Urine pH (5-7) Ur Specific Gravit y (1.005-1.030) Urine Protein (Negative) Urine Glucose (UA) (Normal) Urine Ketones (Negative) Urine Blood (Negative) Urine Nitrate (Negative) Urine Bilirubin (Negative) Urine Urobilinogen (Negative) mg/dL Ur Leukocyte [place] ase (Negative) Salicylates < 0.3 L (3-10) mg/dL Urine Opiates Scre en (Negative) ng/mL Acetaminophen < 5.0 L (10-30) ug/mL Ur Barbiturates Sc reen (Negative) ng/mL Valproic Acid 2.8 L (50-100) ug/mL Ur Phencyclidine S crn (Negative) ng/mL Ur Amphetamines Sc reen (Negative) ng/mL U Benzodiazepines Scrn (Negative) ng/mL Urine Cocaine Scre en (Negative) ng/mL U Marijuana (THC) Screen (Negative) ng/mL Ethyl Alcohol < 10 (0-10) mg/dL 04/19/21 04/19/21 04/19/21 Range/Units 05:00 05:27 05:27 WBC (4.0-10.0) 10^3/ uL RBC (4.1-5.3) 10^6/u L Hgb (11.7-16.6) g/dL Hct (42.0-52.0) % MCV (80-94) fL MCH (28.0-34.0) pg MCHC (30.0-36.0) g/dL RDW (12.1-15.1) % Plt Count (130-400) 10^3/c mm MPV (7.4-10.4) fL Neut % (Auto) % Lymph % (Auto) % [place] % (Auto) % Eos % (Auto) % Baso % (Auto) % Neut # (Auto) (1.8-7.7) 10^3/u L Lymph # (Auto) (0.8-4.8) 10^3/u L [place] # (Auto) (0.2-0.9) 10^3/u L Eos # (Auto) (0.0-0.8) 10^3/u L Baso # (Auto) (0.0-0.1) 10^3/u L Nucleated RBC % (a uto) % Nucleated RBCs # /100WBC PT (12.1-14.9) SECO NDS INR (0.8-1.2) Sodium (136-145) mmol/L Potassium (3.5-5.1) mmol/L Chloride (98-107) mmol/L Carbon Dioxide (22-29) mmol/L Anion Gap (5-19) BUN (6-20) mg/dL Creatinine (0.7-1.2) mg/dL GFR Calculation (90-130) mL/min Glucose (65-115) mg/dL Calculated Osmolal ity (285-295) mOsm/k g Calcium (8.5-10.5) mg/dL Total Bilirubin (0.15-1.2) mg/dL AST (0-40) U/L ALT (0-41) U/L Alkaline Phosphata se (40-130) IU/L Ammonia 35 (16-60) umol/L Total Protein (6.6-8.7) g/dL Albumin (3.5-5.2) g/dL Globulin (1.3-4.6) g/dL Urine Color Yellow (Yellow) Urine Appearance Clear (CLEAR) Urine pH 6 (5-7) Ur Specific Gravit y 1.015 (1.005-1.030) Urine Protein Neg (Negative) Urine Glucose (UA) Norm (Normal) Urine Ketones Negative (Negative) Urine Blood Neg (Negative) Urine Nitrate Negative (Negative) Urine Bilirubin Neg (Negative) Urine Urobilinogen Norm (Negative) mg/dL Ur Leukocyte [place] ase Negative (Negative) Salicylates (3-10) mg/dL Urine Opiates Scre en Positive H (Negative) ng/mL Acetaminophen (10-30) ug/mL Ur Barbiturates Sc reen Negative (Negative) ng/mL Valproic Acid (50-100) ug/mL Ur Phencyclidine S crn Negative (Negative) ng/mL Ur Amphetamines Sc reen Negative (Negative) ng/mL U Benzodiazepines Scrn Positive H (Negative) ng/mL Urine Cocaine Scre en Negative (Negative) ng/mL U Marijuana (THC) Screen Positive H (Negative) ng/mL Ethyl Alcohol (0-10) mg/dL Discharge Plan Discharge Patient Disposition: Home Clinical Impression: Accidental drug ingestion Qualifiers: Encounter type: initial encounter Qualified Code(s): T50.901A - Poisoning by unspecified drugs, medicaments and biological substances, accidental (unintentional), initial encounter Condition: Stable Prescriptions: No Action divalproex 500 mg tablet,delayed release (DR/EC) 500 mg PO BID Qty: 60 RF: 2 prazosin 2 mg capsule 2 mg PO BEDTIME Qty: 30 RF: 2 propranolol 20 mg tablet 20 mg PO TID PRN (Reason: anxiety) Qty: 90 RF: 2 risperidone [Risperdal] 3 mg tablet 3 mg PO BID Qty: 60 RF: 1 pantoprazole [Protonix] 40 mg Tablet,Delayed Release (Dr/Ec) 40 mg PO BID RF: 0 lisinopril 10 mg Tablet 20 mg PO DAILY RF: 0 albuterol sulfate [ProAir HFA] 90 mcg/actuation Hfa Aerosol Inhaler 2 puff INHALATION Q6H PRN (Reason: Shortness Of Breath) RF: 0 atenolol 50 mg Tablet 50 mg PO BID RF: 0 cetirizine 10 mg Tablet 10 mg PO DAILY RF: 0 pregabalin 50 mg Capsule 50 mg PO DAILY RF: 0 Xifaxan 550 mg Tablet 550 mg PO BID RF: 0 Tessalon Perles 100 mg capsule 100 mg PO TID PRN (Reason: cough) Qty: 20 RF: 0 Tessalon Perles 100 mg capsule 200 mg PO TID PRN (Reason: cough) Qty: 60 RF: 0 tizanidine 4 mg capsule 4 mg PO Q6H PRN (Reason: muscle spasticity) Qty: 20 RF: 0 Robaxin-750 750 mg tablet 750 mg PO Q6H Qty: 30 RF: 0 Naprosyn 500 mg tablet 500 mg PO BID PRN (Reason: pain) Qty: 20 RF: 0 Discharge Orders: Discharge ED (Routine); Ordered 04/19/21 Ordered By: Clement Garcia Discharge Diet: Usual diet Discharge Activity: Limit activity as instructed Activity Restrictions/Additional Instructions: Drink plenty of fluids for the next 24 hours. Return for mental status changes, worsening lethargy, other concerning symptoms. Coding Level of Care Code ED Manager Warehouse for Crystal Fwd Exam Detailed
--- NOTE | 2021-04-19 04:36 | ECG_ITS ---
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 Measurements Intervals [place] Rate: 75 P: 53 IA: 160 QRS: 48 QRSD: 105 T: 43 QT: 376 QTc: 420 Interpretive Statements SINUS RHYTHM Compared to ECG 03/18/2020 06:51:58 Myocardial infarct finding no longer present Electronically Signed On 04-19-2021 22:14:17 CDT by Franklyn Carpenter M.D. [id number]
[2021-04-19 05:18] LABS: Basophils % 0.3 %; Eosinophils # 0.5 10^3/uL (0.0-0.8); Eosinophils % 3.2 %; Hematocrit 38.4 % (42.0-52.0); Hemoglobin 13.6 g/dL (11.7-16.6); Lymphocytes # 3.4 10^3/uL (0.8-4.8); Lymphocytes % 21.8 %; Mean Corpuscular HGB Conc 35.4 g/dL (30.0-36.0); Mean Corpuscular Hemoglobin 32.8 pg (28.0-34.0); Mean Corpuscular Volume 92.5 fL (80-94); Mean Platelet Volume 8.4 fL (7.4-10.4); Monocytes # 1.4 10^3/uL (0.2-0.9); Monocytes % 9.3 %; Neutrophils # 10.01 10^3/uL (1.8-7.7); Neutrophils % 64.9 %; Nucleated Red Blood Cells % 0 %; Platelet Count 274 10^3/cmm (130-400); Red Blood Count 4.15 10^6/uL (4.1-5.3); Red Cell Distribution Width 12.8 % (12.1-15.1); White Blood Count 15.4 10^3/uL (4.0-10.0)
[2021-04-19 05:30] LABS: INR 1.02 (0.8-1.2)
[2021-04-19 05:39] LABS: Ammonia 35 umol/L (16-60)
[2021-04-19 05:40] LABS: Alanine Aminotransferase 26 U/L (0-41); Albumin Level 4.1 g/dL (3.5-5.2); Alkaline Phosphatase 130 IU/L (40-130); Aspartate Amino Transferase 18 U/L (0-40); Blood Urea Nitrogen 8 mg/dL (6-20); Calcium 7.8 mg/dL (8.5-10.5); Carbon Dioxide 22 mmol/L (22-29); Chloride 97 mmol/L (98-107); Globulin 2.7 g/dL (1.3-4.6); Glomerular Filtration Rate 110.7 mL/min (90-130); Glucose 107 mg/dL (65-115); Osmolality Calculated 267 mOsm/kg (285-295); Sodium 129 mmol/L (136-145); Total Bilirubin 0.5 mg/dL (0.15-1.2); Total Protein 6.8 g/dL (6.6-8.7); Valproic Acid Level 2.8 ug/mL (50-100)
[2021-04-19] MEDS: ondansetron 2 mg/ML SDV 2 mL 4 MG IVP (05:40)
[2021-04-19] MEDS: sodium chloride 0.9% 1,000 ML 999 ML IV (05:40)
[2021-04-19 05:41] VITALS: RESP 18; O2SAT 97
[2021-04-19 05:41] LABS: Acetaminophen < 5.0 ug/mL (10-30); Alcohol Level < 10 mg/dL (0-10); Anion Gap 13.6 (5-19); Potassium 3.6 mmol/L (3.5-5.1); Salicylate < 0.3 mg/dL (3-10)
[2021-04-19] MEDS: morphine 4 mg/mL SDV 1 mL IVP (05:41)
[2021-04-19 05:55] LABS: Add Urine Microscopic? NO; Charge for UA Resulting for Rev
[2021-04-19 05:59] LABS: Bilirubin Urine Neg (Negative); Blood Urine Neg (Negative); Glucose Urine UA Norm (Normal); Ketones Urine Negative (Negative); Leukocyte Esterase Urine Negative (Negative); Nitrate Urine Negative (Negative); Protein Urine Neg (Negative); Specific Gravity, Urine 1.015 (1.005-1.030); Urine Appearance Clear (CLEAR); Urine Color Yellow (Yellow); Urobilinogen Urine Norm (Negative); pH Urine 6 (5-7)
[2021-04-19 06:08] LABS: Amphetamines Screen Urine Negative (Negative); Barbiturates Screen Urine Negative (Negative); Benzodiazepines Screen Urine Positive (Negative); Cocaine Screen Urine Negative (Negative); Opiate Screen Urine Positive (Negative); PCP Screen Urine Negative (Negative); THC Screen Urine Positive (Negative)
[2021-04-19 06:38] VITALS: BP 125/84; PULSE 90; RESP 18; TEMP 36.6; O2SAT 96
== END 2021-04-19 06:57 | disposition home or self-care (01) ==
PROVIDERS: Emergency Provider Emergency Medicine
DX: T46.5X1A Poisoning by other antihypertensive drugs, accidental (unintentional), initial encounter (principal); R41.0 Disorientation, unspecified; B19.20 Unspecified viral hepatitis C without hepatic coma; K76.9 Liver disease, unspecified; F17.200 Nicotine dependence, unspecified, uncomplicated
CPT/HCPCS: 71045; 80053; 80164; 80306; 80307; 81003; 82140; 85025; 85610; 93005; 96361; 96374; 96375; 99284; J2270; J2405; J7030

== ENCOUNTER 2021-06-07 02:09 | Emergency (ER) | payer MEDICAID, SELFPAY ==
[2021-06-07 02:10] VITALS: BP 129/87; PULSE 84; RESP 20; TEMP 36.9; O2SAT 95; BMI 28.1
--- NOTE | 2021-06-07 02:24 | ED_ITS ---
HPI - Back Pain/Injury General: Chief Complaint: Back Pain/Injury Stated Complaint: BACK PAIN Time Seen by Provider: 06/07/21 02:09 Source: patient Mode of arrival: ambulatory Limitations: no limitations History of Present Illness: HPI Narrative: 35-year-old male well-known to the ER states that he has been moving furniture over last 2 days and states he strained his lower back. States been having right lower back pain that radiates down to his knee. States pain is sharp in nature and worse with lifting and improved with rest. States pain is currently a 2 out of 10. Denies any bowel or bladder incontinence. Associated symptoms: Deny abdominal pain, chills, dysuria, fever(s), nausea or vomiting Review of Systems Const: Denies: fever(s), chills, body aches or change in appetite Eyes: Denies: blurry vision or eye discomfort ENMT: Denies: throat pain or dental pain Card: Denies: chest pain Resp: Denies: dyspnea GI: Denies: abdominal pain, nausea, vomiting or diarrhea : Denies: dysuria Musc: Reports: back pain Skin/Breast: Denies: rash Neuro: Denies: headache(s) Psych: Denies: depression Maxwell/Lymph: Denies: easy bruising All/Imm: Denies: urticaria PFSH ED PFSH: Medical History (Updated 06/07/21 @ 02:26 by Chanda Fonseca MD) Hepatitis C Intervertebral disc disorder with radiculopathy of lumbosacral region Spondylolisthesis, lumbosacral region Surgical History History of appendectomy History of fusion of cervical spine 2009 Dr. Beth Andino C5-C6 ACDFF History of knee surgery Family History Family/Other Heart disease Grandfather Dementia Social History Smoking and tobacco status: current every day smoker Alcohol intake: current Household members: spouse Marital status: Current occupational status: unemployed History of recent travel: No Physical Exam Const: COMMON NORMALS: no acute distress, patient oriented x3 and healthy appearing HENMT: COMMON NORMALS: normocephalic and atraumatic HEAD & SCALP: normocephalic and atraumatic Eye: COMMON NORMALS: Equal, round and reactive pupils present and EOMs intact bilaterally PUPIL: Yes Equal, round and reactive pupils present Neck/C-Spine: COMMON NORMALS: full ROM and supple Chest: COMMONS NORMALS: normal inspection of the chest and normal palpation of entire chest wall Resp: COMMON NORMALS: normal respiratory effort, No retractions, No use of accessory muscles and clear to auscultation bilaterally AUSCULTATION: clear to auscultation bilaterally Cardio: COMMON NORMALS: regular rate, regular rhythm and No murmurs present (Cardio) RATE: regular rate RHYTHM: regular rhythm GI: COMMON NORMALS: Normal to inspection, nondistended, normoactive bowel sounds present, Soft to palpation, non-tender and no masses PALPATION: Yes Soft to palpation Extremity: COMMON NORMALS: normal to inspection and full ROM Neuro: COMMON NORMALS: patient oriented x3, moves all extremities and no focal motor deficits Psych: COMMON NORMALS: mental status grossly normal, Normal thought process present and cooperative THOUGHT PROCESS: Normal thought process present Skin: COMMON NORMALS: no rashes or lesions noted and no wounds GENERAL SKIN EXAM: no rashes or lesions noted Course Vital Signs: Vital signs: Vital Signs Temperature 98.4 F 06/07/21 02:10 Pulse Rate 84 06/07/21 02:10 Respiratory Rate 20 H 06/07/21 02:10 Blood Pressure 129/87 06/07/21 02:10 Pulse Oximetry 95 06/07/21 02:10 MDM - Back Pain/Injury MDM Narrative: Medical decision making narrative: Patient presents here with lumbar strain from moving furniture. He does have some slight sciatica. Patient given Decadron and Toradol here and will prescribe Naprosyn Robaxin for home. He stable for discharge is to follow-up with PCP and return if worsening. Discharge Plan Discharge Patient Disposition: Home Clinical Impression: Sciatica Qualifiers: Laterality: right Qualified Code(s): M54.31 - Sciatica, right side Strain of lumbar region Qualifiers: Encounter type: initial encounter Qualified Code(s): S39.012A - Strain of muscle, fascia and tendon of lower back, initial encounter Condition: Stable Prescriptions: New methocarbamol 750 mg tablet 750 mg PO Q6H PRN (Reason: spasms) Qty: 20 RF: 0 EC-Naprosyn 500 mg tablet,delayed release (DR/EC) 500 mg PO BID PRN (Reason: pain) Qty: 20 RF: 0 No Action divalproex 500 mg tablet,delayed release (DR/EC) 500 mg PO BID Qty: 60 RF: 2 prazosin 2 mg capsule 2 mg PO BEDTIME Qty: 30 RF: 2 propranolol 20 mg tablet 20 mg PO TID PRN (Reason: anxiety) Qty: 90 RF: 2 risperidone [Risperdal] 3 mg tablet 3 mg PO BID Qty: 60 RF: 1 pantoprazole [Protonix] 40 mg Tablet,Delayed Release (Dr/Ec) 40 mg PO BID RF: 0 lisinopril 10 mg Tablet 20 mg PO DAILY RF: 0 albuterol sulfate [ProAir HFA] 90 mcg/actuation Hfa Aerosol Inhaler 2 puff INHALATION Q6H PRN (Reason: Shortness Of Breath) RF: 0 atenolol 50 mg Tablet 50 mg PO BID RF: 0 cetirizine 10 mg Tablet 10 mg PO DAILY RF: 0 pregabalin 50 mg Capsule 50 mg PO DAILY RF: 0 Xifaxan 550 mg Tablet 550 mg PO BID RF: 0 Tessalon Perles 100 mg capsule 100 mg PO TID PRN (Reason: cough) Qty: 20 RF: 0 Tessalon Perles 100 mg capsule 200 mg PO TID PRN (Reason: cough) Qty: 60 RF: 0 tizanidine 4 mg capsule 4 mg PO Q6H PRN (Reason: muscle spasticity) Qty: 20 RF: 0 Robaxin-750 750 mg tablet 750 mg PO Q6H Qty: 30 RF: 0 Naprosyn 500 mg tablet 500 mg PO BID PRN (Reason: pain) Qty: 20 RF: 0 Discharge Orders: Discharge ED (Routine); Ordered 06/07/21 Ordered By: Chanda Fonseca Discharge Diet: Advance as tolerated Discharge Activity: Resume usual activity Patient Instructions: Low Back Strain (ED) Coding Level of Care Code ED Physical Therapist Technician for Chg Fwd Exam Comprehensive
[2021-06-07] MEDS: HYDROcodone-acetaminophen 5-325 mg Tablet 1 TAB PO (02:38)
[2021-06-07] MEDS: dexamethasone 10 mg/mL INJ IM (02:39)
[2021-06-07 02:45] VITALS: BP 129/87; PULSE 88; RESP 18; O2SAT 94
== END 2021-06-07 02:46 | disposition home or self-care (01) ==
PROVIDERS: Emergency Provider Emergency Medicine; PCP Family Medicine
DX: S39.012A Strain of muscle, fascia and tendon of lower back, initial encounter (principal); M54.31 Sciatica, right side; F17.200 Nicotine dependence, unspecified, uncomplicated; X50.0XXA Overexertion from strenuous movement or load, initial encounter; Y93.89 Activity, other specified
CPT/HCPCS: 96372; 99283; J1100

== ENCOUNTER 2021-07-07 04:57 | Emergency (ER) | payer MEDICAID, SELFPAY ==
[2021-07-07 04:58] VITALS: PULSE 100; RESP 16; TEMP 36.7; O2SAT 100
[2021-07-07] MEDS: naproxen 500 mg Tablet PO (05:32)
[2021-07-07] MEDS: dexamethasone 10 mg/mL INJ IM (05:32)
--- NOTE | 2021-07-07 05:32 | W.ED.BACK ---
HPI - Back Pain/Injury General: Chief Complaint: Back Pain/Injury Stated Complaint: BACK PAIN Time Seen by Provider: 07/07/21 04:58 Source: patient and EMS Mode of arrival: EMS Limitations: no limitations History of Present Illness: HPI Narrative: 35-year-old male who has a history of chronic back pain states he was lifting his out of the tub today and strained his lower back. He states he has got severe pain he rates a 7 out of 10 with pain shooting down his right side. Is a history of sciatica as well. Denies any bowel or bladder incontinence. Patient is able to ambulate without difficulty. Denies any other injuries. MD elicited complaint: back pain Associated symptoms: Deny abdominal pain, chills, dysuria, fever(s), nausea or vomiting Review of Systems Const: Denies: fever(s), chills, body aches or change in appetite Eyes: Denies: blurry vision or eye discomfort ENMT: Denies: throat pain or dental pain Card: Denies: chest pain Resp: Denies: dyspnea GI: Denies: abdominal pain, nausea, vomiting or diarrhea : Denies: dysuria Musc: Reports: neck pain Skin/Breast: Denies: rash Neuro: Denies: headache(s) Psych: Denies: depression Maxwell/Lymph: Denies: easy bruising All/Imm: Denies: urticaria PFSH ED PFSH: Medical History (Updated 07/07/21 @ 05:36 by Chanda Fonseca MD) Hepatitis C Intervertebral disc disorder with radiculopathy of lumbosacral region Spondylolisthesis, lumbosacral region Surgical History History of appendectomy History of fusion of cervical spine 2009 Dr. Beth Andino C5-C6 ACDFF History of knee surgery Family History Family/Other Heart disease Grandfather Dementia Social History Smoking and tobacco status: current every day smoker Alcohol intake: current Household members: spouse Marital status: Current occupational status: unemployed History of recent travel: No Physical Exam Const: COMMON NORMALS: no acute distress, patient oriented x3 and healthy appearing HENMT: COMMON NORMALS: normocephalic and atraumatic HEAD & SCALP: normocephalic and atraumatic Eye: COMMON NORMALS: Equal, round and reactive pupils present and EOMs intact bilaterally PUPIL: Yes Equal, round and reactive pupils present Neck/C-Spine: COMMON NORMALS: full ROM and supple Chest: COMMONS NORMALS: normal inspection of the chest and normal palpation of entire chest wall Resp: COMMON NORMALS: normal respiratory effort, No retractions, No use of accessory muscles and clear to auscultation bilaterally AUSCULTATION: clear to auscultation bilaterally Cardio: COMMON NORMALS: regular rate, regular rhythm and No murmurs present (Cardio) RATE: regular rate RHYTHM: regular rhythm GI: COMMON NORMALS: Normal to inspection, nondistended, normoactive bowel sounds present, Soft to palpation, non-tender and no masses PALPATION: Yes Soft to palpation Back/Pelvis: OTHER: No midline tenderness patient is able ambulate without any difficulty Extremity: COMMON NORMALS: normal to inspection and full ROM Neuro: COMMON NORMALS: patient oriented x3, moves all extremities and no focal motor deficits Psych: COMMON NORMALS: mental status grossly normal, Normal thought process present and cooperative THOUGHT PROCESS: Normal thought process present Skin: COMMON NORMALS: no rashes or lesions noted and no wounds GENERAL SKIN EXAM: no rashes or lesions noted Course Vital Signs: Vital signs: Vital Signs Temperature 98.1 F 07/07/21 04:58 Pulse Rate 100 07/07/21 04:58 Respiratory Rate 16 07/07/21 04:58 Pulse Oximetry 100 07/07/21 04:58 MDM - Back Pain/Injury MDM Narrative: Medical decision making narrative: Patient presents here with low back pain that is chronic in nature. Patient has no signs of cord compression or acute cord injury. Patient is stable for discharge and is to follow-up with PCP and return if worsening. Will place patient on Naprosyn along with muscle relaxant. Discharge Plan Discharge Patient Disposition: Home Clinical Impression: Low back pain Qualifiers: Chronicity: acute Back pain laterality: right Sciatica presence: with sciatica Sciatica laterality: sciatica of right side Qualified Code(s): M54.41 - Lumbago with sciatica, right side Condition: Stable Prescriptions: New methocarbamol 750 mg tablet 750 mg PO Q6H PRN (Reason: spasms) Qty: 20 RF: 0 Naprosyn 500 mg tablet 500 mg PO BID PRN (Reason: pain) Qty: 20 RF: 0 No Action divalproex 500 mg tablet,delayed release (DR/EC) 500 mg PO BID Qty: 60 RF: 2 prazosin 2 mg capsule 2 mg PO BEDTIME Qty: 30 RF: 2 propranolol 20 mg tablet 20 mg PO TID PRN (Reason: anxiety) Qty: 90 RF: 2 risperidone [Risperdal] 3 mg tablet 3 mg PO BID Qty: 60 RF: 1 pantoprazole [Protonix] 40 mg Tablet,Delayed Release (Dr/Ec) 40 mg PO BID RF: 0 lisinopril 10 mg Tablet 20 mg PO DAILY RF: 0 albuterol sulfate [ProAir HFA] 90 mcg/actuation Hfa Aerosol Inhaler 2 puff INHALATION Q6H PRN (Reason: Shortness Of Breath) RF: 0 atenolol 50 mg Tablet 50 mg PO BID RF: 0 cetirizine 10 mg Tablet 10 mg PO DAILY RF: 0 pregabalin 50 mg Capsule 50 mg PO DAILY RF: 0 Xifaxan 550 mg Tablet 550 mg PO BID RF: 0 Tessalon Perles 100 mg capsule 100 mg PO TID PRN (Reason: cough) Qty: 20 RF: 0 Tessalon Perles 100 mg capsule 200 mg PO TID PRN (Reason: cough) Qty: 60 RF: 0 tizanidine 4 mg capsule 4 mg PO Q6H PRN (Reason: muscle spasticity) Qty: 20 RF: 0 methocarbamol 750 mg tablet 750 mg PO Q6H PRN (Reason: spasms) Qty: 20 RF: 0 EC-Naprosyn 500 mg tablet,delayed release (DR/EC) 500 mg PO BID PRN (Reason: pain) Qty: 20 RF: 0 Robaxin-750 750 mg tablet 750 mg PO Q6H Qty: 30 RF: 0 Naprosyn 500 mg tablet 500 mg PO BID PRN (Reason: pain) Qty: 20 RF: 0 Discharge Orders: Discharge ED (Routine); Ordered 07/07/21 Ordered By: Chanda Fonseca Referrals: Yamile Marsh DO [Primary Care Provider] - 1-3 days Discharge Diet: Advance as tolerated Discharge Activity: Resume usual activity Patient Instructions: Chronic Back Pain (ED) Coding Level of Care Code ED [employer]
== END 2021-07-07 05:47 | disposition home or self-care (01) ==
PROVIDERS: Emergency Provider Emergency Medicine; PCP Family Medicine
DX: M54.41 Lumbago with sciatica, right side (principal); F17.200 Nicotine dependence, unspecified, uncomplicated
CPT/HCPCS: 96372; 99283; J1100

== ENCOUNTER 2021-08-12 21:28 | Emergency (ER) | payer MEDICAID, SELFPAY ==
[2021-08-12 21:40] VITALS: BP 123/81; PULSE 106; RESP 22; TEMP 36.6; O2SAT 97; BMI 26.6
[2021-08-12 21:54] VITALS: BP 131/88; PULSE 106; RESP 20; TEMP 37; O2SAT 97
--- NOTE | 2021-08-12 22:03 | W.ED.BACK ---
HPI - Back Pain/Injury General: Chief Complaint: Back Pain/Injury Stated Complaint: Right leg,back pain Time Seen by Provider: 08/12/21 21:33 History of Present Illness: HPI Narrative: Patient is a 36-year-old male who comes to the ED with right-sided lower back pain that radiates down into his right leg. Patient says he has a history of sciatica. Symptoms started approximately 2 months ago after he moved into his new home. Patient thinks he lifted some things that aggravated his back pain then. For the past 2 months he has had increasing right lower back pain with pain rating down his leg. Patient reports his pain a 9 out of 10. Denies any acute injury. Denies any bladder or bowel incontinence, pelvic anesthesia or weakness to the left lower extremities. Associated symptoms: Deny abdominal pain, chills, dysuria, fatigue, fever(s), hematuria, nausea or vomiting Review of Systems Const: Denies: fever(s), chills or fatigue Eyes: Denies: change in vision or eye discomfort ENMT: Denies: throat pain, odynophagia, nasal discharge or nasal congestion Card: Denies: chest pain, palpitations, edema, swelling of feet/ankles, dyspnea on exertion or orthopnea Resp: Denies: dyspnea, productive cough or non-productive cough GI: Denies: abdominal pain, nausea, vomiting, diarrhea, constipation or hematochezia : Denies: flank pain, difficulty urinating, dysuria or hematuria Musc: Reports: back pain; Denies: neck pain or extremity swelling Skin/Breast: Denies: rash or new lesions Neuro: Denies: headache(s), numbness in extremities or weakness in extremities PFS ED PFSH: Medical History Hepatitis C Intervertebral disc disorder with radiculopathy of lumbosacral region Spondylolisthesis, lumbosacral region Surgical History History of appendectomy History of fusion of cervical spine 2009 Dr. Beth Andino C5-C6 ACDFF History of knee surgery Family History Family/Other Heart disease Grandfather Dementia Social History Smoking and tobacco status: current every day smoker Alcohol intake: current Household members: spouse Marital status: Current occupational status: unemployed History of recent travel: No Physical Exam Const: COMMON NORMALS: no acute distress, patient oriented x3 and alert GENERAL APPEARANCE: cooperative and comfortable HENMT: COMMON NORMALS: normocephalic HEAD & SCALP: normocephalic MOUTH: Normal oral and palatal mucosa present THROAT: posterior oropharynx normal and uvula midline Neck/C-Spine: COMMON NORMALS: supple GENERAL: Yes normal visual inspection Resp: COMMON NORMALS: normal respiratory effort, No retractions, No use of accessory muscles and clear to auscultation bilaterally AUSCULTATION: clear to auscultation bilaterally Cardio: COMMON NORMALS: regular rate, regular rhythm, S1 normal heart sound present, S2 normal heart sound present, No gallops present (Cardio), No clicks present (Cardio), No murmurs present (Cardio) and Peripheral pulses 2+ throughout RATE: regular rate RHYTHM: regular rhythm HEART SOUNDS: S1 normal heart sound present and S2 normal heart sound present PERIPHERAL PULSES: Peripheral pulses 2+ throughout GI: COMMON NORMALS: Normal to inspection, nondistended, normoactive bowel sounds present, Soft to palpation, non-tender and no masses PALPATION: Yes Soft to palpation : COMMON NORMALS: Yes no CVA tenderness BLADDER/KIDNEY EXAM: Yes no CVA tenderness Back/Pelvis: COMMON NORMALS: no CVA tenderness LUMBAR SPINE/LOWER BACK: Yes pain with ROM, No lumbar spinal tenderness, Yes paraspinal muscle tenderness Lumbar paraspinal muscle tenderness: right Right lumbar paraspinal muscle tenderness: L4 and L5 and Yes straight leg raise positive right Straight leg raise positive details right: at 30 degrees Extremity: COMMON NORMALS: normal to inspection Neuro: COMMON NORMALS: patient oriented x3 and moves all extremities SENSORIUM/ORIENTATION: Yes alert Skin: GENERAL SKIN EXAM: dry skin Course Vital Signs: Vital signs: Vital Signs Temperature 98 F 08/12/21 22:20 Pulse Rate 100 08/12/21 22:20 Respiratory Rate 18 08/12/21 22:20 Blood Pressure 123/72 08/12/21 22:20 Pulse Oximetry 98 08/12/21 22:20 MDM - Back Pain/Injury MDM Narrative: Medical decision making narrative: Patient is a 36-year-old male comes to the ED with right sided lower back pain that radiates down to his right leg. Symptoms have been going on for the past 2 months started after he was lifting items to move into his new home. Denies any cauda equina symptoms. Exam findings suggestive of lumbar radiculopathy and patient was discharged home with a prescription for muscle relaxer, steroid and naproxen. Return to ED precautions given. Follow-up with PCP in 7 to 10 days for reevaluation. Patient understood agreed with plan. Discharge Plan Discharge Patient Disposition: Home Clinical Impression: Lumbar radiculopathy Condition: Stable Prescriptions: New cyclobenzaprine 10 mg tablet 10 mg PO BID PRN (Reason: muscle spasm) Qty: 12 RF: 0 naproxen 500 mg tablet 500 mg PO BID PRN (Reason: pain) Qty: 20 RF: 0 Medrol (Kushal) 4 mg tablets,dose pack See Rx Instructions .ROUTE .COMPLEX Qty: 21 RF: 0 lactulose 10 gram/15 mL (15 mL) solution 20 g PO TID Qty: 600 RF: 0 No Action divalproex 500 mg tablet,delayed release (DR/EC) 500 mg PO BID Qty: 60 RF: 2 prazosin 2 mg capsule 2 mg PO BEDTIME Qty: 30 RF: 2 propranolol 20 mg tablet 20 mg PO TID PRN (Reason: anxiety) Qty: 90 RF: 2 risperidone [Risperdal] 3 mg tablet 3 mg PO BID Qty: 60 RF: 1 pantoprazole [Protonix] 40 mg Tablet,Delayed Release (Dr/Ec) 40 mg PO BID RF: 0 lisinopril 10 mg Tablet 20 mg PO DAILY RF: 0 albuterol sulfate [ProAir HFA] 90 mcg/actuation Hfa Aerosol Inhaler 2 puff INHALATION Q6H PRN (Reason: Shortness Of Breath) RF: 0 atenolol 50 mg Tablet 50 mg PO BID RF: 0 cetirizine 10 mg Tablet 10 mg PO DAILY RF: 0 pregabalin 50 mg Capsule 50 mg PO DAILY RF: 0 Xifaxan 550 mg Tablet 550 mg PO BID RF: 0 Tessalon Perles 100 mg capsule 100 mg PO TID PRN (Reason: cough) Qty: 20 RF: 0 Tessalon Perles 100 mg capsule 200 mg PO TID PRN (Reason: cough) Qty: 60 RF: 0 tizanidine 4 mg capsule 4 mg PO Q6H PRN (Reason: muscle spasticity) Qty: 20 RF: 0 methocarbamol 750 mg tablet 750 mg PO Q6H PRN (Reason: spasms) Qty: 20 RF: 0 EC-Naprosyn 500 mg tablet,delayed release (DR/EC) 500 mg PO BID PRN (Reason: pain) Qty: 20 RF: 0 methocarbamol 750 mg tablet 750 mg PO Q6H PRN (Reason: spasms) Qty: 20 RF: 0 Naprosyn 500 mg tablet 500 mg PO BID PRN (Reason: pain) Qty: 20 RF: 0 Robaxin-750 750 mg tablet 750 mg PO Q6H Qty: 30 RF: 0 Naprosyn 500 mg tablet 500 mg PO BID PRN (Reason: pain) Qty: 20 RF: 0 Discharge Orders: Discharge ED (Routine); Ordered 08/12/21 Ordered By: Crow Tubbs Referrals: Yamile Marsh DO [Primary Care Provider] - Discharge Diet: Regular Discharge Activity: Increase activity as tolerated Patient Instructions: Lumbar Radiculopathy (ED) Activity Restrictions/Additional Instructions: Follow-up with medical provider as directed in 7 to 10 days for reevaluation. Take medications as prescribed. Perform stretches daily to help with symptoms. Apply cold pack or heat on lower back to help with symptoms as well. Return to the ER or your medical provider if condition worsens. Please read and understand discharge instructions. Thank you for choosing [facility] for your healthcare needs today. Please realize this is an emergency room and that we are providing you with a medical screening exam and this may not be complete and all inclusive of all the testing and or work up that you may need to determine your ailment or severity of your illness. It is very important that you follow up as instructed or that you return to the Emergency Department should you have concerns or if your condition changes or worsens in any way. Coding Level of Care Code ED [employer] [facility] [employer] Exam Comprehensive
[2021-08-12 22:16] VITALS: RESP 16; O2SAT 100
[2021-08-12] MEDS: morphine 4 mg/mL SDV 1 mL IM (22:16)
[2021-08-12] MEDS: dexamethasone 10 mg/mL INJ IM (22:16)
[2021-08-12 22:20] VITALS: BP 123/72; PULSE 100; RESP 18; TEMP 36.6; O2SAT 98
== END 2021-08-12 22:29 | disposition home or self-care (01) ==
PROVIDERS: Emergency Provider Physician Assistant; PCP Family Medicine
DX: M54.16 Radiculopathy, lumbar region (principal); Z86.19 Personal history of other infectious and parasitic diseases; F17.210 Nicotine dependence, cigarettes, uncomplicated
CPT/HCPCS: 96372; 99283; J1100; J2270

== ENCOUNTER 2021-08-22 22:28 | Inpatient (IN) | payer MEDICAID, SELFPAY ==
[2021-08-22 21:59] VITALS: BP 144/83; PULSE 90; RESP 18; TEMP 36.9; O2SAT 96; BMI 32.5
--- NOTE | 2021-08-22 22:44 | XRR_ITS ---
PROCEDURE INFORMATION: Exam: XR Chest Exam date and time: 08/22/2021 10:44 PM Age: 36 years old Clinical indication: Other: AMS TECHNIQUE: Imaging protocol: XR of the chest. Views: 1 view. COMPARISON: CR XR chest 1V portable [id number] 04/19/2021 4:49 AM FINDINGS: Lungs: Unremarkable. No consolidation. Pleural spaces: Unremarkable. No pleural effusion. No pneumothorax. Heart/Mediastinum: Unremarkable. No cardiomegaly. Bones/joints: Lower cervical spine ACDF. Negative for acute thoracic fracture. XR/XR chest 1V portable [id number] IMPRESSION: 1. No acute pulmonary disease. 2. No change from comparison. Radiation Dose CTDIVOL = (mGy): DLP = (mGy-cm)
--- NOTE | 2021-08-22 22:44 | CTR_ITS ---
PROCEDURE INFORMATION: Exam: CT Head Without Contrast Exam date and time: 08/22/2021 10:44 PM Age: 36 years old Clinical indication: Altered mental status/memory loss; Confusion or disorientation; Patient HX: AMS TECHNIQUE: Imaging protocol: Computed tomography of the head without contrast. Radiation optimization: All CT scans at this facility use at least one of these dose optimization techniques: automated exposure control; mA and/or kV adjustment per patient size (includes targeted exams where dose is matched to clinical indication); or iterative reconstruction. COMPARISON: CT head wo con* [id number] 05/01/2020 12:06 AM RADIATION DOSE METRICS: Total DLP (mGy-cm): 932.03 FINDINGS: Brain: Normal. No hemorrhage. Unremarkable white matter. No mass effect. Cerebral ventricles: No ventriculomegaly. Paranasal sinuses: Visualized sinuses are unremarkable. No fluid levels. Mastoid air cells: Visualized mastoid air cells are well aerated. Bones/joints: Unremarkable. No acute fracture. Soft tissues: Unremarkable. CT/CT head wo con* [id number] IMPRESSION: No acute intracranial abnormality. Radiation Dose CTDIVOL = (mGy): DLP = 932.03 (mGy-cm)
--- NOTE | 2021-08-22 22:45 | ECG_ITS ---
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 Measurements Intervals [place] Rate: 83 P: 53 TN: 147 QRS: 40 QRSD: 102 T: 34 QT: 353 QTc: 415 Interpretive Statements SINUS RHYTHM Compared to ECG 04/19/2021 05:09:05 No significant changes Electronically Signed On 08-23-2021 23:21:05 CDT by Franklyn Carpenter M.D. [id number]
[2021-08-22 22:58] LABS: Add Urine Microscopic? NO; Charge for UA Resulting for Rev
[2021-08-22 22:59] LABS: Basophils % 0.3 %; Eosinophils # 0.3 10^3/uL (0.0-0.8); Eosinophils % 2.5 %; Hematocrit 44.1 % (42.0-52.0); Hemoglobin 15.2 g/dL (11.7-16.6); Lymphocytes # 2.8 10^3/uL (0.8-4.8); Lymphocytes % 27.1 %; Mean Corpuscular HGB Conc 34.5 g/dL (30.0-36.0); Mean Corpuscular Hemoglobin 31.9 pg (28.0-34.0); Mean Corpuscular Volume 92.6 fl (80-94); Mean Platelet Volume 8.7 fL (7.4-10.4); Monocytes # 0.9 10^3/uL (0.2-0.9); Monocytes % 8.4 %; Neutrophils # 6.21 10^3/uL (1.8-7.7); Neutrophils % 60.1 %; Nucleated Red Blood Cells % 0 %; Platelet Count 223 10^3/cmm (130-400); Red Blood Count 4.76 10^6/uL (4.1-5.3); Red Cell Distribution Width 12.1 % (12.1-15.1); White Blood Count 10.3 10^3/uL (4.0-10.0)
[2021-08-22 23:09] LABS: Amphetamines Screen Urine Negative (Negative); Barbiturates Screen Urine Negative (Negative); Benzodiazepines Screen Urine Positive (Negative); Cocaine Screen Urine Negative (Negative); Opiate Screen Urine Negative (Negative); PCP Screen Urine Negative (Negative); THC Screen Urine Positive (Negative)
[2021-08-22 23:10] LABS: Bilirubin Urine Neg (Negative); Blood Urine Neg (Negative); Glucose Urine UA Norm (Normal); Ketones Urine Negative (Negative); Leukocyte Esterase Urine Negative (Negative); Nitrate Urine Negative (Negative); Protein Urine Neg (Negative); Specific Gravity, Urine 1.005 (1.005-1.030); Sulfosalicylic Acid Urine Negative (Negative); Urine Appearance Clear (CLEAR); Urine Color Yellow (Yellow); Urobilinogen Urine Norm (Negative); pH Urine 8 (5-7)
[2021-08-22] MEDS: sodium chloride 0.9% 1,000 ML 999 ML IV (23:16)
[2021-08-22 23:20] LABS: Ammonia 241 umol/L (16-60); Lactate (Lactic Acid level) 0.8 mmol/L (0.5-2.2)
[2021-08-22 23:23] LABS: Alanine Aminotransferase 16 U/L (0-41); Alkaline Phosphatase 100 IU/L (40-130); Aspartate Amino Transferase 14 U/L (0-40); Blood Urea Nitrogen 6 mg/dL (6-20); C Reactive Protein 2.3 mg/L (0.0-4.9); Calcium 8.7 mg/dL (8.5-10.5); Carbon Dioxide 24 mmol/L (22-29); Chloride 98 mmol/L (98-107); Creatine Phosphokinase 85 U/L (39-308); Globulin 2.8 g/dL (1.3-4.6); Glomerular Filtration Rate 153.3 mL/min (90-130); Glucose 102 mg/dL (65-115); INR 0.96 (0.8-1.2); Osmolality Calculated 274 mOsm/kg (285-295); Sodium 133 mmol/L (136-145); Total Bilirubin 0.6 mg/dL (0.15-1.2); Total Protein 6.8 g/dL (6.6-8.7)
[2021-08-22 23:29] LABS: Acetaminophen < 5.0 ug/mL (10-30); Alcohol Level < 10 mg/dL (0-10); Salicylate < 0.3 mg/dL (3-10)
[2021-08-22 23:37] LABS: ABG PCO2 31.7 mmHg (35-45); ABG PH Result 7.49 (7.35-7.45); Arterial Blood Gas Hematocrit 49.1 % (42-52); Base Excess ABG 1.8 mmol/L (-2.0-2.0); Blood Gas Sample Site Brachial, right; Blood Gas Sample Type Arterial; HCO3 ABG 24.3 mmol/L (22-26); Oxygen Device ROOM AIR; PO2 ABG 75.2 mmHg (80.0-100.0)
[2021-08-22] MEDS: haloperidol inj 5 mg/mL INJ 1 mL 3 MG IVP (23:45)
[2021-08-23] VITALS (8 sets, daily range): BP systolic 102–125; BP diastolic 66–84; PULSE 67–104; RESP 16–21; TEMP 36.4–36.8; O2SAT 95–96
--- NOTE | 2021-08-23 00:19 | ED_ITS ---
HPI - Altered Mental Status General: Chief Complaint: Altered Mental Status Stated Complaint: AMS History of Present Illness: HPI narrative: 36-year-old male with a history of chronic liver disease, and elevated ammonia levels. He presents with mental status changes worsening over the last 48 hours or so per his . There may be complication with this with marijuana use as well. He is a poor historian at this point, but denies fever or other illness. MD complaint: altered mental status and confusion Onset (ago): day(s) (2) Timing confirmed by: spouse Severity: moderate Consistency of symptoms: Getting Worse Context: history of similar presentation and liver disease Associated symptoms: Reports delusions; Deny auditory hallucinations, visual hallucinations, homicidal ideation or suicidal ideation Review of Systems General: Reports: ROS unobtainable due to mental status (Poor historian) Const: Denies: fever(s) or chills Eyes: Denies: change in vision ENMT: Denies: throat pain Card: Denies: chest pain or palpitations Resp: Denies: dyspnea, productive cough or non-productive cough GI: Denies: abdominal pain Psych: Denies: visual hallucinations, auditory hallucinations, suicidal ideation or homicidal ideation [facility] ED PFSH: Medical History (Updated 08/23/21 @ 00:27 by Clement Garcia DO) Hepatitis C Intervertebral disc disorder with radiculopathy of lumbosacral region Spondylolisthesis, lumbosacral region Surgical History History of appendectomy History of fusion of cervical spine 2009 Dr. Beth Andino C5-C6 ACDFF History of knee surgery Family History Family/Other Heart disease Grandfather Dementia Social History Smoking and tobacco status: current every day smoker Alcohol intake: current Household members: spouse Marital status: Current occupational status: unemployed History of recent travel: No Physical Exam Const: GENERAL APPEARANCE: cooperative, disheveled, lethargic and ill appearing ORIENTATION/CONSCIOUSNESS: Yes confused and Yes lethargic HENMT: COMMON NORMALS: normocephalic and Normal external nose present HEAD & SCALP: normocephalic FACE & SINUS: normal facial exam NOSE: Normal external nose present THROAT: posterior oropharynx normal Eye: COMMON NORMALS: Equal, round and reactive pupils present GENERAL EYE: exophthalmos PUPIL: Yes Equal, round and reactive pupils present and Yes Dilated pupils Chest: COMMONS NORMALS: normal inspection of the chest Resp: COMMON NORMALS: normal respiratory effort, No use of accessory muscles and clear to auscultation bilaterally AUSCULTATION: clear to auscultation bilaterally Cardio: COMMON NORMALS: regular rate and regular rhythm RATE: regular rate RHYTHM: regular rhythm GI: COMMON NORMALS: Normal to inspection, nondistended, normoactive bowel sounds present and Soft to palpation PALPATION: Yes Soft to palpation Neuro: ANA MARIA COMA SCALE: document GCS findings [place] coma scale eye opening: Spontaneous [place] coma scale verbal response: Confused [place] coma scale motor response: Obey commands [place] coma scale total score: 14 SENSORIUM/ORIENTATION: Yes lethargic CRANIAL NERVES: Yes CN normal except as noted COORDINATION/BALANCE: No [id number] test normal GAIT: Yes Unable to assess gait COORDINATION: [id number] test abnormal Psych: THOUGHT CONTENT: Yes delusions Course Consultations: Consultation #1: rubio Time: 00:34 Vital Signs: Vital signs: Vital Signs Temperature 98.5 F 08/22/21 21:59 Pulse Rate 90 08/22/21 21:59 Respiratory Rate 18 08/22/21 21:59 Blood Pressure 144/83 08/22/21 21:59 Pulse Oximetry 96 08/22/21 21:59 MDM - Altered Mental Status MDM Narrative: Medical decision making narrative: 15.2 hemoglobin, white blood cell count 10.3. -c-reatinine is 0.6. Ammonia level however is 241. Platelet count is normal. Blood sugar is normal. CT is negative for acute process. X- ray is negative. pH is 7.49. He is not overly hypoxic. It appears ammonia level is responsible for his significant mental status change. Lab Data: Labs: Lab Results 08/22/21 08/22/21 08/22/21 22:45 22:45 22:45 WBC 10.3 10^3/uL H 10 ^3/uL (4.0-10.0) RBC 4.76 10^6/uL 10^6 /uL (4.1-5.3) Hgb 15.2 g/dL g/dL (11.7-16.6) Hct 44.1 % % (42.0-52.0) MCV 92.6 fl fl (80-94) MCH 31.9 pg pg (28.0-34.0) MCHC 34.5 g/dL g/dL (30.0-36.0) RDW 12.1 % % (12.1-15.1) Plt Count 223 10^3/cmm 10^3 /cmm (130-400) MPV 8.7 fL fL (7.4-10.4) Neut % (Auto) 60.1 % % Lymph % (Auto) 27.1 % % Bracken % (Auto) 8.4 % % Eos % (Auto) 2.5 % % Baso % (Auto) 0.3 % % Neut # (Auto) 6.21 10^3/uL 10^3 /uL (1.8-7.7) Lymph # (Auto) 2.8 10^3/uL 10^3/ uL (0.8-4.8) Bracken # (Auto) 0.9 10^3/uL 10^3/ uL (0.2-0.9) Eos # (Auto) 0.3 10^3/uL 10^3/ uL (0.0-0.8) Baso # (Auto) 0.0 10^3/uL 10^3/ uL (0.0-0.1) Nucleated RBC % (a uto) 0 % % Nucleated RBCs # 0.0 /100WBC /100W BC PT 13.10 SECONDS SEC ONDS (12.1-14.9) INR 0.96 (0.8-1.2) Specimen Type Sample Site ABG pH ABG pCO2 ABG pO2 ABG HCO3 ABG Base Excess Eriberto Test Hematocrit O2 Delivery Device FiO2 Severity Of Illness Coordinator ID Sodium 133 mmol/L L mmol /L (136-145) Potassium 4.0 mmol/L mmol/L (3.5-5.1) Chloride 98 mmol/L mmol/L (98-107) Carbon Dioxide 24 mmol/L mmol/L (22-29) Anion Gap 15.0 (5-19) BUN 6 mg/dL mg/dL (6-20) Creatinine 0.6 mg/dL L mg/dL (0.7-1.2) GFR Calculation 153.3 mL/min H mL /min (90-130) Glucose 102 mg/dL mg/dL (65-115) Calculated Osmolal ity 274 mOsm/kg L mOs m/kg (285-295) Lactate Calcium 8.7 mg/dL mg/dL (8.5-10.5) Total Bilirubin 0.6 mg/dL mg/dL (0.15-1.2) AST 14 U/L U/L (0-40) ALT 16 U/L U/L (0-41) Alkaline Phosphata se 100 IU/L IU/L (40-130) Ammonia Creatine Kinase 85 U/L U/L (39-308) C-Reactive Protein 2.3 mg/L mg/L (0.0-4.9) Total Protein 6.8 g/dL g/dL (6.6-8.7) Albumin 4.0 g/dL g/dL (3.5-5.2) Globulin 2.8 g/dL g/dL (1.3-4.6) Urine Color Urine Appearance Urine pH Ur Specific Gravit y Urine Protein Urine Glucose (UA) Urine Ketones Urine Blood Urine Nitrate Urine Bilirubin Prot Sulfosalicyli c Acd Urine Urobilinogen Ur Leukocyte Tianna ase Salicylates < 0.3 mg/dL L mg/ dL (3-10) Urine Opiates Scre en Acetaminophen < 5.0 ug/mL L ug/ mL (10-30) Ur Barbiturates Sc reen Ur Phencyclidine S crn Ur Amphetamines Sc reen U Benzodiazepines Scrn Urine Cocaine Scre en U Marijuana (THC) Screen Ethyl Alcohol < 10 mg/dL mg/dL (0-10) 08/22/21 08/22/21 08/22/21 22:45 22:45 22:45 WBC RBC Hgb Hct MCV MCH MCHC RDW Plt Count MPV Neut % (Auto) Lymph % (Auto) Bracken % (Auto) Eos % (Auto) Baso % (Auto) Neut # (Auto) Lymph # (Auto) Bracken # (Auto) Eos # (Auto) Baso # (Auto) Nucleated RBC % (a uto) Nucleated RBCs # PT INR Specimen Type Sample Site ABG pH ABG pCO2 ABG pO2 ABG HCO3 ABG Base Excess Eriberto Test Hematocrit O2 Delivery Device FiO2 Severity Of Illness Coordinator ID Sodium Potassium Chloride Carbon Dioxide Anion Gap BUN Creatinine GFR Calculation Glucose Calculated Osmolal ity Lactate 0.8 mmol/L mmol/L (0.5-2.2) Calcium Total Bilirubin AST ALT Alkaline Phosphata se Ammonia 241 umol/L H umol /L (16-60) Creatine Kinase C-Reactive Protein Total Protein Albumin Globulin Urine Color Yellow (Yellow) Urine Appearance Clear (CLEAR) Urine pH 8 H (5-7) Ur Specific Gravit y 1.005 (1.005-1.030) Urine Protein Neg (Negative) Urine Glucose (UA) Norm (Normal) Urine Ketones Negative (Negative) Urine Blood Neg (Negative) Urine Nitrate Negative (Negative) Urine Bilirubin Neg (Negative) Prot Sulfosalicyli c Acd Negative (Negative) Urine Urobilinogen Norm mg/dL mg/dL (Negative) Ur Leukocyte Tianna ase Negative (Negative) Salicylates Urine Opiates Scre en Acetaminophen Ur Barbiturates Sc reen Ur Phencyclidine S crn Ur Amphetamines Sc reen U Benzodiazepines Scrn Urine Cocaine Scre en U Marijuana (THC) Screen Ethyl Alcohol 08/22/21 08/22/21 22:45 23:29 WBC RBC Hgb Hct MCV MCH MCHC RDW Plt Count MPV Neut % (Auto) Lymph % (Auto) Bracken % (Auto) Eos % (Auto) Baso % (Auto) Neut # (Auto) Lymph # (Auto) Bracken # (Auto) Eos # (Auto) Baso # (Auto) Nucleated RBC % (a uto) Nucleated RBCs # PT INR Specimen Type Arterial Sample Site Brachial, right ABG pH 7.49 H (7.35-7.45) ABG pCO2 31.7 mmHg L mmHg (35-45) ABG pO2 75.2 mmHg L mmHg (80.0-100.0) ABG HCO3 24.3 mmol/L mmol/ L (22-26) ABG Base Excess 1.8 mmol/L mmol/L (-2.0-2.0) Eriberto Test N/a Hematocrit 49.1 % % (42-52) O2 Delivery Device Room air FiO2 21.0 % % Severity Of Illness Coordinator ID Tamma Sodium Potassium Chloride Carbon Dioxide Anion Gap BUN Creatinine GFR Calculation Glucose Calculated Osmolal ity Lactate Calcium Total Bilirubin AST ALT Alkaline Phosphata se Ammonia Creatine Kinase C-Reactive Protein Total Protein Albumin Globulin Urine Color Urine Appearance Urine pH Ur Specific Gravit y Urine Protein Urine Glucose (UA) Urine Ketones Urine Blood Urine Nitrate Urine Bilirubin Prot Sulfosalicyli c Acd Urine Urobilinogen Ur Leukocyte Tian[place] ase Salicylates Urine Opiates Scre en Negative ng/mL ng /mL (Negative) Acetaminophen Ur Barbiturates Sc reen Negative ng/mL ng /mL (Negative) Ur Phencyclidine S crn Negative ng/mL ng /mL (Negative) Ur Amphetamines Sc reen Negative ng/mL ng /mL (Negative) U Benzodiazepines Scrn Positive ng/mL H ng/mL (Negative) Urine Cocaine Scre en Negative ng/mL ng /mL (Negative) U Marijuana (THC) Screen Positive ng/mL H ng/mL (Negative) Ethyl Alcohol Discharge Plan Discharge Patient Disposition: Admitted As Inpatient Clinical Impression: Acute hepatic encephalopathy Condition: Stable Coding Level of Care Code ED Linen Keeper for Crystal Golden Exam Comprehensive
[2021-08-23] MEDS: haloperidol inj 5 mg/mL INJ 1 mL 2 MG IVP (00:41)
[2021-08-23] MEDS: LORazepam 2 mg/mL INJ 1 mL IVP (00:42)
--- NOTE | 2021-08-23 01:13 | USR_ITS ---
PROCEDURE INFORMATION: Exam: US Abdomen Complete Exam date and time: 08/23/2021 1:13 AM Age: 36 years old Clinical indication: Other: Chronic liver disease and hepatic encephalopathy; Additional info: Assess for cirrhosis, portal hypertension TECHNIQUE: Imaging protocol: Real-time ultrasound of the abdomen with image documentation. Total images: 66 COMPARISON: US abdomen limited [id number] 10/01/2014 8:07 AM FINDINGS: Liver: 13.0 cm Liver length. The liver is normal in echogenicity and configuration. No masses are detected. There is no intrahepatic biliary dilatation. Gallbladder: Normal. No gallstones. There is no gallbladder wall thickening. Common bile duct: See Liver finding. Pancreas: The pancreas is poorly-visualized due to overlying bowel gas. Right kidney: 13.1 cm length of right kidney. Right kidney with normal echogenicity and no hydronephrosis, calculi, solid masses, nor perinephric fluid collection. Left kidney: 12.6 cm length of left kidney. Left kidney with normal echogenicity and no hydronephrosis, calculi, solid masses, nor perinephric fluid collection. Spleen: 11 cm Splenic length. The spleen has a normal echogenicity and configuration. No masses are detected. Aorta: Distal aorta not visualized. Proximal aorta unremarkable. Inferior vena cava: Normal. Portal venous: Spectral sonography demonstrates patent portal vein with hepatopedal blood flow. Normal respiratory phasicity on spectral waveform, indicating preserved compliance of the liver. No portal venous abnormality identified. Other findings: Study limited due to bowel gas. US/US abdomen complete* [id number] IMPRESSION: No acute findings. Radiation Dose CTDIVOL = (mGy): DLP = (mGy-cm)
[2021-08-23] MEDS: enoxaparin 40 mg/0.4 mL Syringe SUBCUT (01:43)
--- NOTE | 2021-08-23 02:02 | PC.NURSE ---
PT HAS REQUIRED FREQUENT REDIRECTION DURING ER VISIT. NO VIOLENT OUTBURSTS REPORTED OR WITNESSED. PT RESPONSES ARE FREQUENTLY I'M SORRY, I DIDN'T MEAN TO DO THAT WHEN REMINDED TO NOT REMOVE HIS IV OR LEAVE HIS ROOM. PT'S HAS BEEN UPDATED BY PHONE CALL.
--- NOTE | 2021-08-23 07:01 | PM.HP ---
Providers/Chief Complaint Admitting Physician: Jackeline Sims MD Primary Care Provider: Yamile Marsh DO Chief Complaint: AMS History of Present Illness History obtained by chart review and talking to ERP. Patient currently confused and unable to provide any details. Mick Smith is a 36 year old male with h/o chronic liver disease and hepatic encephlopathy moni to ER today with 2-3 days of altered mental status, with noted confusion, disorientation and agitation. No h/o fever, chest pain, dyspnea, palpitations, abdominal pain, NVD. Ammonia level today noted to be 243. Cause of liver disease not apparent at this time but reported h/o Hepatitis C. Last CT dating back to 2018 without noted cirrhosis. U tox + for marijuana, opiates and benzodiazepenes. Review of Systems General: Reports: ROS unobtainable due to mental status Medications/Allergies Home Medications Medication Instructions Recorded Confirmed Last Taken Type albuterol sulfate [ProAir HFA] 2 puff INHALATION Q6H PRN 12/06/19 04/15/20 03/26/20 History atenolol 50 mg PO BID 12/06/19 04/15/20 03/26/20 History lisinopril 20 mg PO DAILY 12/06/19 04/15/20 03/26/20 History pantoprazole [Protonix] 40 mg PO BID 12/06/19 04/15/20 03/26/20 History risperidone 3 mg tablet 3 mg PO BID #60 tab 03/04/20 04/15/20 03/26/20 Rx cetirizine 10 mg PO DAILY 03/26/20 04/15/20 03/26/20 History pregabalin 50 mg PO DAILY 03/26/20 04/15/20 Unknown History rifaximin [Xifaxan] 550 mg PO BID 03/26/20 04/15/20 03/26/20 History divalproex 500 mg tablet,delayed 500 mg PO BID #60 tab 04/16/20 04/16/20 Unknown Rx release prazosin 2 mg capsule 2 mg PO BEDTIME #30 cap 04/16/20 04/16/20 Unknown Rx propranolol 20 mg tablet 20 mg PO TID PRN #90 tab 04/16/20 04/16/20 Unknown Rx benzonatate [Tessalon Perles] 100 mg PO TID PRN #20 cap 05/01/20 Unknown Rx benzonatate [Tessalon Perles] 200 mg PO TID PRN #60 cap 05/29/20 Unknown Rx tizanidine 4 mg PO Q6H PRN #20 cap 07/25/20 Unknown Rx methocarbamol [Robaxin-750] 750 mg PO Q6H #30 tab 09/24/20 Unknown Rx naproxen [Naprosyn] 500 mg PO BID PRN #20 tab 09/24/20 Unknown Rx methocarbamol 750 mg PO Q6H PRN #20 tab 06/07/21 Unknown Rx naproxen [EC-Naprosyn] 500 mg PO BID PRN #20 tab 06/07/21 Unknown Rx methocarbamol 750 mg PO Q6H PRN #20 tab 07/07/21 Unknown Rx naproxen [Naprosyn] 500 mg PO BID PRN #20 tab 07/07/21 Unknown Rx cyclobenzaprine 10 mg PO BID PRN #12 tab 08/12/21 Unknown Rx lactulose 20 g PO TID #600 ml 08/12/21 Unknown Rx methylprednisolone [Medrol (Kushal)] See Rx Instructions .ROUTE 08/12/21 Unknown Rx .COMPLEX #21 ea naproxen 500 mg PO BID PRN #20 tab 08/12/21 Unknown Rx Allergies Allergy/AdvReac Type Severity Reaction Status Date / Time Iodine and Iodide Containing Allergy Severe Rash/ Verified 07/25/20 05:43 Produc Anaphylaxis ketorolac [From Toradol] Allergy Severe ALGY-Anaphy Verified 07/25/20 05:43 laxis shellfish derived Allergy Severe Rash/ Verified 07/25/20 05:43 Anaphylaxis tramadol Allergy Severe ALGY-Anaphy Verified 07/25/20 05:43 laxis PFSH Acute PFSH: Medical History (Updated 08/23/21 @ 07:08 by Jackeline Sims MD) Hepatitis C Intervertebral disc disorder with radiculopathy of lumbosacral region Spondylolisthesis, lumbosacral region Surgical History History of appendectomy History of fusion of cervical spine 2009 Dr. Beth Andino C5-C6 ACDFF History of knee surgery Family History Family/Other Heart disease Grandfather Dementia Social History Smoking and tobacco status: current every day smoker Alcohol intake: current Household members: spouse Marital status: Current occupational status: unemployed History of recent travel: No Vitals/I&O/Wt Last Vital Signs Temp 97.5 F L 08/23/21 04:00 Pulse 70 08/23/21 04:00 Resp 18 08/23/21 04:00 BP 109/74 08/23/21 04:00 Pulse Ox 96 08/23/21 04:00 08/22/21 08/23/21 08/23/21 22:59 06:59 14:59 Intake Total 1060 / 1060 Balance 1060 / 1060 Weight last 48 hrs Weight 99.79 kg Physical Exam Narrative: EXAM NARRATIVE: General: AO x1, disorieted, lethargic HEENT: pupils bilaterally equal and reactive, pallors not present Chest: Normal vesicular breath sounds, no added sounds, equal good air entry bilaterally CVS: S1-S2 regular, no murmurs, no tachycardia, no gallops, no rubs Abdomen: Soft, nontender, no organomegaly, bowel sounds present Neuro: moving all extremities in bed Data : 08/22/21 22:45 08/22/21 22:45 Micro: Microbiology 08/23/21 03:00 Blood Culture - Preliminary Blood SPECIMEN COLLECTED A&P Assessment and plan (1) Acute hepatic encephalopathy: Status: Acute (2) Altered mental status: Status: Acute Additional A&P Information AMS likely 2/2 hepatic encephalopathy U tox + for opaites, marijuana and benzodiazepenes, this may be related to home medications Ammonia level >200, patient documented to have hepatic encephalopathy in the past however cause of chronic liver disease not clear at this time. Has a reported h/o alcohol intake. 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
[2021-08-23] MEDS: pantoprazole DR 40 mg Tablet PO (08:30)
[2021-08-23] MEDS: lisinopril 20 mg Tablet PO (08:30)
[2021-08-23] MEDS: divalproex DR 500 mg Tablet PO ×2 (08:30→17:11)
[2021-08-23] MEDS: atenolol 50 mg Tablet PO ×2 (08:30→17:11)
[2021-08-23] MEDS: lactulose oral liq 20 gm/30 mL UDC PO (08:30)
[2021-08-23] MEDS: haloperidol inj 5 mg/mL INJ 1 mL 1 MG IVP ×3 (10:24→16:47)
[2021-08-23] MEDS: lactulose oral liq 20 gm/30 mL UDC 30 GM PO ×3 (11:55→20:09)
[2021-08-23] MEDS: gabapentin 300 mg Capsule PO ×2 (14:40→20:10)
[2021-08-23] MEDS: quetiapine 100 mg Tablet PO ×2 (14:40→20:10)
[2021-08-23 15:44] LABS: Basophils % 0.3 %; Eosinophils # 0.1 10^3/uL (0.0-0.8); Eosinophils % 0.5 %; Hematocrit 48.7 % (42.0-52.0); Hemoglobin 16.9 g/dL (11.7-16.6); Lymphocytes # 2.4 10^3/uL (0.8-4.8); Lymphocytes % 21.5 %; Mean Corpuscular HGB Conc 34.7 g/dL (30.0-36.0); Mean Corpuscular Hemoglobin 32.7 pg (28.0-34.0); Mean Corpuscular Volume 94.2 fl (80-94); Mean Platelet Volume 8.8 fL (7.4-10.4); Monocytes # 0.6 10^3/uL (0.2-0.9); Monocytes % 5.6 %; Neutrophils # 7.81 10^3/uL (1.8-7.7); Nucleated Red Blood Cells % 0 %; Platelet Count 254 10^3/cmm (130-400); Red Blood Count 5.17 10^6/uL (4.1-5.3); Red Cell Distribution Width 12.4 % (12.1-15.1)
[2021-08-23 16:17] LABS: Alanine Aminotransferase 21 U/L (0-41); Albumin Level 4.4 g/dL (3.5-5.2); Alkaline Phosphatase 115 IU/L (40-130); Anion Gap 16.1 (5-19); Aspartate Amino Transferase 19 U/L (0-40); Blood Urea Nitrogen 6 mg/dL (6-20); Calcium 9.2 mg/dL (8.5-10.5); Carbon Dioxide 22 mmol/L (22-29); Chloride 105 mmol/L (98-107); Globulin 3.2 g/dL (1.3-4.6); Glomerular Filtration Rate 153.3 mL/min (90-130); Glucose 107 mg/dL (65-115); Osmolality Calculated 286 mOsm/kg (285-295); Potassium 4.1 mmol/L (3.5-5.1); Sodium 139 mmol/L (136-145); Thyroid Stimulating Hormone 0.84 uIU/mL (0.27-4.20); Total Bilirubin 0.9 mg/dL (0.15-1.2); Total Protein 7.6 g/dL (6.6-8.7)
[2021-08-23 16:37] LABS: Hepatitis A Antibody IgM Non-Reactive (Nonreactive); Hepatitis B Core AB, Total Non-Reactive (Nonreactive); Hepatitis B Surface Antigen Non-Reactive (Nonreactive); Hepatitis C Virus Antibody Reactive (Nonreactive)
[2021-08-23 16:39] LABS: Ammonia 92 umol/L (16-60)
--- NOTE | 2021-08-23 17:08 | PM.PN ---
Subjective Subjective: Interval history: Seen multiple times during the day. Today morning on examination patient is awake, alert to self, place, reason for being in the hospital, anxious. He states he would like to go home as soon as possible to take care of his . States he knows he is in the hospital because his ammonia levels are high. He states he takes lactulose twice daily though has not been having as many bowel movements as he should. On multiple counseling patient agrees to stay till 6 PM for further lactulose and repeat ammonia level. He agreed to stay to make sure ammonia levels come down appropriately. Complaining of back pain and feeling anxious during the day. Vitals/I&O/Wt Last Vital Signs Temp 98.2 F 08/23/21 15:41 Pulse 104 H 08/23/21 15:41 Resp 16 08/23/21 15:41 BP 125/84 08/23/21 15:41 Pulse Ox 96 08/23/21 15:41 08/23/21 08/23/21 08/23/21 06:59 14:59 22:59 Intake Total 1060 / 1060 Balance 1060 / 1060 Weight last 48 hrs Weight 99.79 kg Physical Exam Narrative: EXAM NARRATIVE: General: No acute distress, AO x3, pallor, anxious, HEENT: PERRLA, pupils bilaterally equal and reactive Chest: Normal vesicular breath sounds, no added sounds, equal good air entry bilaterally CVS: S1-S2 regular, no murmurs, no tachycardia, no gallops, no rubs Abdomen: Soft, nontender, no organomegaly, bowel sounds present Neuro: No focal deficits, no facial deformity, AO x3, power 5/5 in all limbs Data : 08/23/21 15:32 08/23/21 15:32 Micro: Microbiology 08/23/21 03:00 Blood Culture - Preliminary Blood SPECIMEN COLLECTED A&P Assessment and plan (1) Altered mental status: Status: Acute (2) Acute hepatic encephalopathy: Status: Acute (3) Hepatitis C: Status: Acute (4) Unspecified personality disorder: Status: Acute (5) Generalized anxiety disorder: Status: Acute (6) Post-traumatic stress disorder, chronic: Status: Acute Additional A&P Information Altered mental status: Resolving. Most likely secondary to hepatic encephalopathy in setting of liver disease secondary to hepatitis C. Continue lactulose 30 mg p.o. every 4 hourly till patient have 3-4 good bowel movements. Continue home dose of rifaximin. Repeat CBC, CMP, ammonia level later in the day today around 3 PM. Banana bag. U tox on admission positive for opiates and marijuana. To avoid withdrawal restart home medications. Restart gabapentin at 300 mg 3 times daily, decrease Seroquel to 100 mg 3 times daily, continue with Depakote 500 twice daily, continue risperidone 2 mg twice daily. Continue alprazolam 1 mg every 12 hourly. Haldol 1 mg IM every 6 hourly as needed. Psychiatry evaluation to help with multiple oral bleeding medications. Normal saline at 50 cc/h. Full code. Mechanical soft diet Nicotine patch Attestations Medical Necessity Statement*: Requires further hospitalization for management of hepatic encephalopathy Time Spent in Patient Care: Greater than 35 minutes (>than 50% of time spent in counselling and/or direct pt care on unit). Coding Level of Care Code Acute Documentation Coordinator for Crystal Golden Diagnoses Altered mental status R41.82 Acute hepatic encephalopathy K72.00 Hepatitis C B19.20 Unspecified personality disorder F60.9 Generalized anxiety disorder F41.1 Post-traumatic stress disorder, chronic F43.12
[2021-08-23] MEDS: risperiDONE 2 mg Tablet PO (17:11)
[2021-08-23 17:31] LABS: Hepatitis B Surface AB < 3.5 (11.5-1000)
[2021-08-23] MEDS: folic acid 1 MG, multivitamin inj 10 ML, thiamine 100 MG in sodium chloride 0.9% 1,000 ML 75 MG IV (17:56)
[2021-08-23] MEDS: nicotine 21 mg Patch 1 PATCH TRANSDERMA (18:29)
[2021-08-24] MEDS: lactulose oral liq 20 gm/30 mL UDC 30 GM PO ×3 (01:25→08:02)
[2021-08-24] MEDS: enoxaparin 40 mg/0.4 mL Syringe SUBCUT (01:26)
[2021-08-24 04:00] VITALS: BP 123/81; PULSE 84; RESP 20; TEMP 36.8; O2SAT 98
[2021-08-24 05:50] LABS: Basophils % 0.4 %; Eosinophils # 0.2 10^3/uL (0.0-0.8); Eosinophils % 2.3 %; Hematocrit 48.8 % (42.0-52.0); Hemoglobin 16.1 g/dL (11.7-16.6); Lymphocytes # 4.4 10^3/uL (0.8-4.8); Lymphocytes % 46.2 %; Mean Corpuscular Hemoglobin 31.4 pg (28.0-34.0); Mean Corpuscular Volume 95.3 fl (80-94); Mean Platelet Volume 9.3 fL (7.4-10.4); Monocytes # 0.9 10^3/uL (0.2-0.9); Monocytes % 9.2 %; Neutrophils # 3.84 10^3/uL (1.8-7.7); Neutrophils % 40.8 %; Nucleated Red Blood Cells % 0 %; Platelet Count 244 10^3/cmm (130-400); Red Blood Count 5.12 10^6/uL (4.1-5.3); Red Cell Distribution Width 12.4 % (12.1-15.1); White Blood Count 9.4 10^3/uL (4.0-10.0)
[2021-08-24 06:02] LABS: Alanine Aminotransferase 22 U/L (0-41); Alkaline Phosphatase 106 IU/L (40-130); Anion Gap 15.7 (5-19); Aspartate Amino Transferase 16 U/L (0-40); Blood Urea Nitrogen 12 mg/dL (6-20); Calcium 9.3 mg/dL (8.5-10.5); Carbon Dioxide 21 mmol/L (22-29); Chloride 109 mmol/L (98-107); Globulin 3.2 g/dL (1.3-4.6); Glomerular Filtration Rate 128.3 mL/min (90-130); Glucose 113 mg/dL (65-115); Osmolality Calculated 295 mOsm/kg (285-295); Potassium 3.7 mmol/L (3.5-5.1); Sodium 142 mmol/L (136-145); Total Bilirubin 0.8 mg/dL (0.15-1.2); Total Protein 7.2 g/dL (6.6-8.7)
[2021-08-24 08:00] VITALS: BP 129/76; PULSE 88; RESP 18; TEMP 36.6; O2SAT 88
[2021-08-24] MEDS: nicotine 21 mg Patch 1 PATCH TRANSDERMA (08:02)
[2021-08-24] MEDS: gabapentin 300 mg Capsule PO (08:03)
[2021-08-24] MEDS: atenolol 50 mg Tablet PO (08:03)
[2021-08-24] MEDS: divalproex DR 500 mg Tablet PO (08:03)
[2021-08-24] MEDS: lisinopril 20 mg Tablet PO (08:03)
[2021-08-24] MEDS: pantoprazole DR 40 mg Tablet PO (08:09)
[2021-08-24] MEDS: quetiapine 100 mg Tablet PO (08:10)
[2021-08-24] MEDS: risperiDONE 2 mg Tablet PO (08:32)
--- NOTE | 2021-08-24 10:20 | P.DS_ITS ---
Discharge Providers Date of Admission: 08/23/21 01:12 Date of Discharge: August 24, 2021 Attending Provider at Admission: Jackeline Sims MD Attending Provider at Discharge: Bar Davidson MD Primary Care Provider: Yamile Marsh DO Diagnoses at Discharge Discharge Diagnosis (1) Altered mental status: Status: Resolved (2) Acute hepatic encephalopathy: Status: Acute (3) Hepatitis C: Status: Acute (4) Unspecified personality disorder: Status: Acute (5) Generalized anxiety disorder: Status: Acute (6) Post-traumatic stress disorder, chronic: Status: Acute Reason for Visit Reason for Visit: [facility] Hospital Course Hospital Course 36 year old male with h/o chronic liver disease and hepatic encephlopathy moni to ER today with 2-3 days of altered mental status, with noted confusion, disorientation and agitation. No h/o fever, chest pain, dyspnea, palpitations, abdominal pain, NVD. Ammonia level today noted to be 243. Patient was admitted for management of acute encephalopathy secondary to hepatic encephalopathy. He was kept on lactulose, to obtain 2-3 good bowel movements a day. CT head without contrast was negative for any acute intracranial pathology. US abdomen complete:No acute findings. Patient responded well to lactulose,at the time of discharge, he was alert oriented x3. Likely cause of hepatic encephalopathy was noncompliant with home lactulose. He was discharged in stable condition to home. He has been asked to follow Dr. Barreto for hep C management. Physical Exam Const: COMMON NORMALS: patient oriented x3 HENMT: COMMON NORMALS: normocephalic and atraumatic HEAD & SCALP: normocephalic and atraumatic Resp: COMMON NORMALS: clear to auscultation bilaterally AUSCULTATION: clear to auscultation bilaterally Cardio: COMMON NORMALS: regular rate, regular rhythm, S1 normal heart sound present, S2 normal heart sound present, No gallops present (Cardio), No murmurs present (Cardio), No rub (Cardio) and Peripheral pulses 2+ throughout RATE: regular rate RHYTHM: regular rhythm HEART SOUNDS: S1 normal heart sound present and S2 normal heart sound present PERIPHERAL PULSES: Peripheral pulses 2+ throughout GI: COMMON NORMALS: Normal to inspection, nondistended, normoactive bowel sounds present, Soft to palpation, non-tender, No hepatosplenomegaly present and no masses AUSCULTATION: Yes normoactive bowel sounds PALPATION: Yes Soft to palpation and Yes No hepatosplenomegaly present RECTAL EXAM: Yes deferred Extremity: COMMON NORMALS: no clubbing, cyanosis or edema and no pedal edema Neuro: COMMON NORMALS: patient oriented x3 Discharge Data Data Completed and Pending: Completed Studies During Hospitalization Category Date Time Status CT head wo con* 7 [id number] Urgent Cat Scan 08/22/21 22:44 Completed XR chest 1V jared ble [id number] Urgent Exams 08/22/21 22:44 Completed US abdomen comple te* [id number] Routine Ultrasound 08/23/21 01:13 Completed Pending at discharge Category Date Time Status Blood Culture Rou justyna Lab 08/23/21 03:00 Results Labs from last 24 hours 08/24/21 08/24/21 08/23/21 04:26 04:26 16:09 WBC 9.4 RBC 5.12 Hgb 16.1 Hct 48.8 MCV 95.3 H MCH 31.4 MCHC 33.0 RDW 12.4 Plt Count 244 MPV 9.3 Neut % (Auto) 40.8 Lymph % (Auto) 46.2 [place] % (Auto) 9.2 Eos % (Auto) 2.3 Baso % (Auto) 0.4 Neut # (Auto) 3.84 Lymph # (Auto) 4.4 [place] # (Auto) 0.9 Eos # (Auto) 0.2 Baso # (Auto) 0.0 Nucleated RBC % (a uto) 0 Nucleated RBCs # 0.0 Sodium 142 Potassium 3.7 Chloride 109 H Carbon Dioxide 21 L Anion Gap 15.7 BUN 12 Creatinine 0.7 GFR Calculation 128.3 Glucose 113 Calculated Osmolal ity 295 Calcium 9.3 Total Bilirubin 0.8 AST 16 ALT 22 Alkaline Phosphata se 106 Ammonia 92 H Total Protein 7.2 Albumin 4.0 Globulin 3.2 TSH Hepatitis A IgM Ab Hep Bs Antigen Hep Bs Antibody Hep B Core Total A b Hepatitis C Antibo dy 08/23/21 08/23/21 08/23/21 15:32 15:32 15:32 WBC 11.0 H RBC 5.17 Hgb 16.9 H Hct 48.7 MCV 94.2 H MCH 32.7 MCHC 34.7 RDW 12.4 Plt Count 254 MPV 8.8 Neut % (Auto) 71.0 Lymph % (Auto) 21.5 [place] % (Auto) 5.6 Eos % (Auto) 0.5 Baso % (Auto) 0.3 Neut # (Auto) 7.81 H Lymph # (Auto) 2.4 [place] # (Auto) 0.6 Eos # (Auto) 0.1 Baso # (Auto) 0.0 Nucleated RBC % (a uto) 0 Nucleated RBCs # 0.0 Sodium 139 Potassium 4.1 Chloride 105 Carbon Dioxide 22 Anion Gap 16.1 BUN 6 Creatinine 0.6 L GFR Calculation 153.3 H Glucose 107 Calculated Osmolal ity 286 Calcium 9.2 Total Bilirubin 0.9 AST 19 ALT 21 Alkaline Phosphata se 115 Ammonia Total Protein 7.6 Albumin 4.4 Globulin 3.2 TSH 0.84 Hepatitis A IgM Ab Non-reactive Hep Bs Antigen Non-reactive Hep Bs Antibody < 3.5 L Hep B Core Total A b Non-reactive Hepatitis C Antibo dy Reactive H Vitals: Last Vital Signs Temp 97.8 F 08/24/21 08:00 Pulse 88 08/24/21 08:00 Resp 18 08/24/21 08:00 BP 129/76 08/24/21 08:00 Pulse Ox 88 L 08/24/21 08:00 Discharge Plan Discharge Patient Disposition: Home Condition: Stable Prescriptions: Continued divalproex 500 mg tablet,delayed release (DR/EC) 500 mg PO BID Qty: 60 RF: 2 pantoprazole [Protonix] 40 mg Tablet,Delayed Release (Dr/Ec) 40 mg PO BID RF: 0 lisinopril 10 mg Tablet 20 mg PO DAILY RF: 0 albuterol sulfate [ProAir HFA] 90 mcg/actuation Hfa Aerosol Inhaler 2 puff INHALATION Q6H PRN (Reason: Shortness Of Breath) RF: 0 atenolol 50 mg Tablet 50 mg PO BID RF: 0 cetirizine 10 mg Tablet 10 mg PO DAILY RF: 0 cyclobenzaprine 10 mg tablet 10 mg PO BID PRN (Reason: muscle spasm) Qty: 12 RF: 0 lactulose 10 gram/15 mL (15 mL) solution 20 g PO TID Qty: 600 RF: 0 quetiapine 200 mg tablet 200 mg PO TID RF: 0 risperidone 2 mg tablet 2 mg PO BID RF: 0 gabapentin 300 mg capsule 300 mg PO TID RF: 0 alprazolam 2 mg tablet extended release 24 hr 2 mg PO DAILY RF: 0 Belsomra 20 mg tablet 20 mg PO BEDTIME RF: 0 Discharge Orders: Discharge Order (Routine); Ordered 08/24/21 Ordered By: Bar Davidson Referrals: Chema Barreto MD [Physician] - 09/16/21 9:30 am Yamile Marsh DO [Primary Care Provider] - 09/08/21 1:00 pm () Discharge Diet: Regular Discharge Activity: Resume usual activity Patient Instructions: Hepatic Encephalopathy (GEN), Altered Mental Status (GEN), Opioid Safety Discharge Attestations Time Spent in Discharge Care*: less than 30 min Specific Discharge Activities: educating patient, educating and/or supporting family/caregiver, discussing with pcp/other providers, discussing with counter caser/social workers/dc planners, documenting/other paperwork and evaluating patient/reviewing data Status at Discharge: Cognitive status at discharge: cognitively intact , Behavioral status at discharge: cooperative , Functional status at discharge: independent ambulation Overall status at discharge: patient is back to baseline Quality Metrics Clinical Quality Measures During this hospital stay, did patient experience: None Coding Level of Care Code Acute [facility] DC note Diagnoses Altered mental status R41.82 Acute hepatic encephalopathy K72.00 Hepatitis C B19.20 Unspecified personality disorder F60.9 Generalized anxiety disorder F41.1 Post-traumatic stress disorder, chronic F43.12
[2021-08-24 12:00] VITALS: BP 129/76; PULSE 88; RESP 18; TEMP 36.6; O2SAT 95
--- NOTE | 2021-08-24 17:41 | PC.RESP ---
SMOKING CESSATION INFORMATION SENT TO PATIENT.
--- NOTE | 2021-08-24 17:41 | PC.RESP ---
SMOKING CESSATION INFORMATION SENT TO PATIENT.
--- NOTE | 2021-08-26 14:34 | PC.SOCIAL ---
discharge follow up call made, spoke with patient. patient a/ox3. patient reports he is better. patient had no changes in medications at discharge. patient has follow up appointment schedule with pcp on 09-08. patient has follow up with dr. david but wishes to have appointment cancelled, he states that dr. david fired him as a patient. patient will speak with dr. aguirre regarding hep c treatment. no questions or concerns voiced.
== END 2021-08-24 12:00 | disposition home or self-care (01) | DRG 443 ==
LOC: ER 08-23 00:27 → MEDSURG 08-23 01:12
PROVIDERS: Student in an Organized Health Care Education/Training Program; Admitting Provider Student in an Organized Health Care Education/Training Program; Emergency Provider Emergency Medicine; PCP Family Medicine; Visit Provider Internal Medicine
DX: K72.10 Chronic hepatic failure without coma (principal); F12.90 Cannabis use, unspecified, uncomplicated; B19.20 Unspecified viral hepatitis C without hepatic coma; M54.17 Radiculopathy, lumbosacral region; M43.17 Spondylolisthesis, lumbosacral region; Z98.1 Arthrodesis status; F17.210 Nicotine dependence, cigarettes, uncomplicated; F60.9 Personality disorder, unspecified; F41.1 Generalized anxiety disorder; F43.12 Post-traumatic stress disorder, chronic
CPT/HCPCS: 36415; 36600; 70450; 71045; 76700; 80053; 80306; 80307; 81003; 82140; 82550; 82803; 83605; 84443; 85025; 85610; 86140; 86705; 86706; 86709; 86803; 87040; 87340; 93005; 96372; 96374; 96375; 96376; 99285; J1630; J1650; J2060; J3411; J3490; J7030

== ENCOUNTER 2021-09-11 16:22 | Inpatient (IN) | payer MEDICAID, SELFPAY ==
[2021-09-11 16:31] VITALS: BP 119/83; PULSE 85; RESP 18; TEMP 36.4; O2SAT 93; BMI 29.2
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
[2021-09-11 16:35] VITALS: BP 119/83; PULSE 85; RESP 18; O2SAT 93
[2021-09-11] MEDS: dexamethasone 10 mg/mL INJ 6 MG IM (16:45)
[2021-09-11] MEDS: orphenadrine 30 mg/mL Inj 2 mL 60 MG IM (16:45)
[2021-09-11 17:38] LABS: Basophils % 0.6 %; Eosinophils # 0.5 10^3/uL (0.0-0.8); Eosinophils % 8.1 %; Mean Corpuscular HGB Conc 33.3 g/dL (30.0-36.0); Mean Corpuscular Hemoglobin 31.7 pg (28.0-34.0); Mean Corpuscular Volume 95.1 fl (80-94); Mean Platelet Volume 8.8 fL (7.4-10.4); Monocytes # 0.7 10^3/uL (0.2-0.9); Monocytes % 9.9 %; Neutrophils # 3.29 10^3/uL (1.8-7.7); Neutrophils % 49.9 %; Nucleated Red Blood Cells % 0 %; Platelet Count 254 10^3/cmm (130-400); Red Blood Count 4.73 10^6/uL (4.1-5.3); Red Cell Distribution Width 12.2 % (12.1-15.1); White Blood Count 6.6 10^3/uL (4.0-10.0)
[2021-09-11 18:02] LABS: Alanine Aminotransferase 34 U/L (0-41); Alkaline Phosphatase 113 IU/L (40-130); Aspartate Amino Transferase 27 U/L (0-40); Blood Urea Nitrogen 8 mg/dL (6-20); Carbon Dioxide 30 mmol/L (22-29); Chloride 104 mmol/L (98-107); Globulin 2.5 g/dL (1.3-4.6); Glomerular Filtration Rate 153.3 mL/min (90-130); Glucose 96 mg/dL (65-115); Osmolality Calculated 286 mOsm/kg (285-295); Sodium 139 mmol/L (136-145); Total Bilirubin 0.5 mg/dL (0.15-1.2); Total Protein 6.5 g/dL (6.6-8.7)
[2021-09-11 18:03] LABS: Acetaminophen < 5.0 ug/mL (10-30); Alcohol Level < 10 mg/dL (0-10); Salicylate < 0.3 mg/dL (3-10)
[2021-09-11 18:05] LABS: Amphetamines Screen Urine Negative (Negative); Barbiturates Screen Urine Negative (Negative); Benzodiazepines Screen Urine Positive (Negative); Cocaine Screen Urine Negative (Negative); Opiate Screen Urine Negative (Negative); PCP Screen Urine Negative (Negative); THC Screen Urine Positive (Negative)
[2021-09-11] MEDS: HYDROcodone-acetaminophen 5-325 mg Tablet 1 TAB PO (19:17)
[2021-09-11 19:52] VITALS: BP 145/88; PULSE 88; RESP 18; O2SAT 98
[2021-09-11] MEDS: quetiapine 100 mg Tablet 200 MG PO (21:35)
[2021-09-11] MEDS: lactulose oral liq 20 gm/30 mL UDC PO (21:35)
[2021-09-11] MEDS: gabapentin 300 mg Capsule PO (21:35)
--- NOTE | 2021-09-11 22:38 | PC.NURSE ---
Pt. called and said tell dora to stop calling his and then hung up.
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
[2021-09-12 06:21] VITALS: BP 110/70; PULSE 80; RESP 17; TEMP 36.8; O2SAT 97
[2021-09-12] MEDS: pantoprazole DR 40 mg Tablet PO ×2 (08:51→18:26)
[2021-09-12] MEDS: lactulose oral liq 20 gm/30 mL UDC PO ×3 (08:51→20:02)
[2021-09-12] MEDS: risperiDONE 2 mg Tablet PO ×2 (08:51→18:26)
[2021-09-12] MEDS: cetirizine 10 mg Tablet PO (08:51)
[2021-09-12] MEDS: atenolol 50 mg Tablet PO ×2 (08:51→18:26)
[2021-09-12] MEDS: gabapentin 300 mg Capsule PO (08:51)
[2021-09-12] MEDS: lisinopril 10 mg Tablet 20 MG PO (08:51)
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
[2021-09-12] MEDS: gabapentin 400 mg Capsule PO ×2 (14:19→20:02)
[2021-09-12] MEDS: quetiapine 100 mg Tablet 200 MG PO ×2 (14:19→20:02)
[2021-09-12 14:32] VITALS: BP 122/87; PULSE 104; RESP 17; TEMP 36.3; O2SAT 96
[2021-09-12] MEDS: zolpidem 5 mg Tablet 10 MG PO (20:02)
[2021-09-12 21:11] VITALS: BP 121/89; PULSE 90; RESP 18; TEMP 36.7; O2SAT 97
[2021-09-12] MEDS: albuterol 8 gm MDI 2 PUFF INHALATION (23:50)
[2021-09-12 23:53] VITALS: PULSE 67; RESP 16; O2SAT 96
[2021-09-13 06:00] VITALS: RESP 16; BMI 29.2
[2021-09-13] MEDS: cetirizine 10 mg Tablet PO (09:24)
[2021-09-13] MEDS: lisinopril 10 mg Tablet 20 MG PO (09:24)
[2021-09-13] MEDS: atenolol 50 mg Tablet PO ×2 (09:24→17:14)
[2021-09-13] MEDS: gabapentin 400 mg Capsule PO ×3 (09:24→20:52)
[2021-09-13] MEDS: lactulose oral liq 20 gm/30 mL UDC PO ×3 (09:24→20:51)
[2021-09-13] MEDS: quetiapine 100 mg Tablet 200 MG PO ×3 (09:24→20:52)
[2021-09-13] MEDS: pantoprazole DR 40 mg Tablet PO ×2 (09:24→17:14)
[2021-09-13] MEDS: risperiDONE 2 mg Tablet PO ×2 (09:24→17:14)
[2021-09-13 09:29] VITALS: PULSE 103; RESP 17; O2SAT 97
[2021-09-13] MEDS: albuterol 8 gm MDI 2 PUFF INHALATION (09:29)
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
[2021-09-13 14:00] VITALS: BP 99/62; PULSE 71; RESP 17; TEMP 36.3; O2SAT 96
[2021-09-13] MEDS: acetaminophen 325 mg Tablet 650 MG PO (17:10)
[2021-09-13 19:55] VITALS: BP 123/88; PULSE 87; RESP 20; TEMP 36.4; O2SAT 95
[2021-09-13] MEDS: zolpidem 5 mg Tablet 10 MG PO (20:51)
[2021-09-13] MEDS: ibuprofen 800 mg tablet PO (21:14)
[2021-09-13 21:17] VITALS: PULSE 91; RESP 18; O2SAT 95
--- NOTE | 2021-09-14 03:53 | PC.NURSE ---
Patient complained of pain rated at 9 in lower back at 2113. Took PRN IBP 800 mg at that time. Medication effective. No further complaints at this time.
[2021-09-14 06:00] VITALS: BP 98/66; PULSE 61; RESP 18; TEMP 36.4; O2SAT 95
[2021-09-14] MEDS: gabapentin 400 mg Capsule PO ×3 (09:13→20:18)
[2021-09-14] MEDS: quetiapine 100 mg Tablet 200 MG PO ×3 (09:13→20:18)
[2021-09-14] MEDS: lisinopril 10 mg Tablet 20 MG PO (09:13)
[2021-09-14] MEDS: risperiDONE 2 mg Tablet PO ×2 (09:13→20:18)
[2021-09-14] MEDS: pantoprazole DR 40 mg Tablet PO ×2 (09:13→20:18)
[2021-09-14] MEDS: atenolol 50 mg Tablet PO ×2 (09:13→20:18)
[2021-09-14] MEDS: cetirizine 10 mg Tablet PO (09:13)
[2021-09-14] MEDS: lactulose oral liq 20 gm/30 mL UDC PO ×2 (09:13→20:18)
[2021-09-14] MEDS: ibuprofen 800 mg tablet PO (09:53)
--- NOTE | 2021-09-14 10:56 | NPU.GN ---
[facility] Group Topic:Triggers and Coping Skills General Mood of Group: Mick did attend group and participated. Mick was quiet in group did not socialize much with others.
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
[2021-09-14 14:00] VITALS: BP 113/78; PULSE 86; RESP 17; TEMP 36.5; O2SAT 96
--- NOTE | 2021-09-14 14:53 | PC.NURSE ---
refused scheduled Lactulose syrup
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
--- NOTE | 2021-09-14 16:54 | PC.RESP ---
SMOKING CESSATION INFORMATION SENT TO PATIENT.
[2021-09-14 16:58] VITALS: BP 113/78; PULSE 86; RESP 17; TEMP 36.5; O2SAT 96
[2021-09-14 19:25] VITALS: PULSE 105; RESP 16; O2SAT 96
[2021-09-14 21:15] VITALS: BP 123/81; PULSE 96; RESP 21; TEMP 36.7; O2SAT 96
[2021-09-14 22:38] VITALS: BP 123/81; PULSE 96; RESP 21; TEMP 36.7; O2SAT 96
== END 2021-09-14 20:55 | disposition home or self-care (01) | DRG 885 ==
LOC: ER 17:20 → NP 19:07
PROVIDERS: Physician Assistant; Admitting Provider Psychiatry & Neurology Child & Adolescent Psychiatry; Emergency Provider Nurse Practitioner Family; PCP Family Medicine; Visit Provider Psychiatry & Neurology Child & Adolescent Psychiatry
DX: F25.0 Schizoaffective disorder, bipolar type (principal); F41.1 Generalized anxiety disorder; M43.17 Spondylolisthesis, lumbosacral region; M54.17 Radiculopathy, lumbosacral region; B19.20 Unspecified viral hepatitis C without hepatic coma; F43.12 Post-traumatic stress disorder, chronic; Z98.1 Arthrodesis status; F17.210 Nicotine dependence, cigarettes, uncomplicated; F91.1 Conduct disorder, childhood-onset type; G89.29 Other chronic pain; Z63.0 Problems in relationship with spouse or partner; Z79.51 Long term (current) use of inhaled steroids
CPT/HCPCS: 80053; 80306; 80307; 85025; 94640; 96372; 97165; 99285; J1100; J1630; J2360; J3535

== ENCOUNTER → 2021-10-13 14:02 | Outpatient (BNVA) | payer MEDICAID, SELFPAY | PROVIDERS: PCP Family Medicine; Visit Provider Physician Assistant | DX: G89.29 Other chronic pain (principal); M54.50 Low back pain, unspecified | CPT/HCPCS: 72110 ==

== ENCOUNTER 2022-01-14 12:09 | Outpatient (CLI) | payer MEDICAID, SELFPAY ==
--- NOTE | 2022-01-14 12:20 | MR_ITS ---
WS: [id number] MRI LUMBAR SPINE NONCONTRAST TECHNIQUE: Sagittal T1, T2 and STIR imaging. Axial T1 and T2 imaging. CLINICAL INFORMATION: M54.50 - Low back pain, unspecified COMPARISON: Outside MRI FINDINGS: Mild lumbar curve. No acute compression. Grade 2 anterolisthesis L5 on S1 with bilateral pars defects . Disc bulging worse L4-L5 with a small annular tear. L1-L2: Normal. L2-L3: No significant disc bulging. Spinal canal and foramen are patent. Mild facet arthropathy. L3-L4: Mild annular bulging with a shallow RIGHT pericentral protrusion. Impingement on the traversin g RIGHT L4 nerve root in the subarticular recess. Mild facet arthropathy. Foramen are patent. L4-L5: Shallow central disc protrusion with a small annular tear. Moderate facet arthropathy. Mild LE FT foraminal narrowing. RIGHT foramen is patent. L5-S1: Grade 2 anterolisthesis L5 on S1 bilateral pars defects. Spinal canal is patent. Moderate to s evere LEFT and moderate RIGHT bony foraminal narrowing. Impingement on the exiting LEFT L5 nerve root . RIGHT dorsal synovial cyst measuring 8 x 5 mm. This impinges the dorsal thecal sac eccentric to the RIGHT at the L5-S1 disc space. Moderate narrowing of the thecal sac. Advanced facet arthropathy. Visualized pelvic bony structures: Normal. Paravertebral soft tissues: Normal. MR/MR lumbar spine wo con* [id number] IMPRESSION: 1. Mild lumbar curve. No acute compression. Grade 2 anterolisthesis L5 on S1 w ith chronic bilateral pars defects. 2. Tiny shallow RIGHT pericentral protrusion L3-L4 with mild central canal omi nosis. Impingement traversing RIGHT L4 nerve root similar to previous. 3. Tiny shallow central protrusion L4-L5 with a small annular tear. Slight eff acement of ventral thecal sac and slight narrowing of the LEFT subarticular rec ess at this level similar to previous. 4. Moderate circumferential narrowing of the thecal sac L5-S1 due to grade 2 a nterolisthesis in combination with RIGHT dorsal synovial cyst measuring 8 x 4 m m which is new from 2019. Central canal stenosis progressed at this level. 5. Moderate to severe bilateral foraminal narrowing L5-S1 worse in the LEFT im pinges the exiting LEFT L5 nerve root appears unchanged. 6. Moderate facet arthropathy L3-L4 L4-L5 and advanced facet arthropathy L5-S1 .
== END 2022-01-14 12:10 | disposition home or self-care (01) ==
LOC: RAD 12:11
PROVIDERS: PCP Family Medicine; Visit Provider Physician Assistant
DX: M51.26 Other intervertebral disc displacement, lumbar region (principal); M48.07 Spinal stenosis, lumbosacral region; M47.816 Spondylosis without myelopathy or radiculopathy, lumbar region
CPT/HCPCS: 72148

== ENCOUNTER → 2022-01-19 16:01 | Outpatient (BNVA) | payer MEDICAID, SELFPAY | PROVIDERS: PCP Family Medicine; Visit Provider Physician Assistant | DX: M43.17 Spondylolisthesis, lumbosacral region (principal) | CPT/HCPCS: 72110 ==

== ENCOUNTER → 2022-03-17 11:42 | Outpatient (BNVA) | payer MEDICAID, SELFPAY | PROVIDERS: PCP Family Medicine; Visit Provider Internal Medicine | DX: B19.20 Unspecified viral hepatitis C without hepatic coma (principal); M43.17 Spondylolisthesis, lumbosacral region; R76.8 Other specified abnormal immunological findings in serum | CPT/HCPCS: 80053; 82105; 85025; 87522; 87902 ==

== ENCOUNTER 2022-06-02 08:05 | Emergency (ER) | payer MEDICAID, SELFPAY ==
[2022-06-02 08:19] VITALS: BP 121/86; PULSE 105; RESP 18; O2SAT 93
--- NOTE | 2022-06-02 08:29 | W.ED.OVERDOS ---
HPI - Overdose General: Chief Complaint: Overdose Stated Complaint: OVERDOSE Time Seen by Provider: 06/02/22 08:12 Source: patient and EMS Mode of arrival: EMS History of Present Illness: 36-year-old male presents to the emergency room via EMS with complaint of overdose. He reportedly had refilled Tylenol with codeine and took a large number his mother became concerned because he is difficult to arouse and most of the pills were gone. EMS brought him in and he is on room air satting in the mid 80s. He did not receive any Narcan in route. Patient is arousable but very lethargic he states he took several Tylenol No. 4 he is only states he took maybe 4 or 5. He denies any attempt to harm himself. He relates having left leg pain as the reason he took the Tylenol with codeine. complaint: accidental overdose Onset (ago): hour(s) Intent: other (Pain relief) How Overdose Was Discovered: family/friend present at time Context: Intentional Overdose: other Context: Accidental Overdose: other (Pain management) Treatments Prior to Arrival: none Review of Systems General: Reports: Other (Limited due to lethargy) Const: Denies: fever(s), chills, body aches, change in appetite, fatigue or malaise ENMT: Denies: throat pain, ear or mastoid pain, nasal discharge or nasal congestion Card: Denies: chest pain, edema, dyspnea on exertion or orthopnea Resp: Denies: dyspnea, productive cough or non-productive cough GI: Denies: abdominal pain, nausea, vomiting, diarrhea or constipation : Denies: flank pain, dysuria, urinary frequency or urinary urgency Skin/Breast: Denies: rash or pruritus PFSH ED PFSH: Medical History (Updated 06/06/22 @ 10:34 by Jose Medina DO) Generalized anxiety disorder Hepatitis C Intervertebral disc disorder with radiculopathy of lumbosacral region Post-traumatic stress disorder, chronic Spondylolisthesis, lumbosacral region Surgical History History of appendectomy History of fusion of cervical spine 2009 Dr. Beth Andino C5-C6 ACDFF History of knee surgery Family History Family/Other Heart disease Grandfather Dementia Social History Smoking and tobacco status: current every day smoker Alcohol intake: current Household members: spouse Marital status: Current occupational status: unemployed History of recent travel: No Physical Exam Const: GENERAL APPEARANCE: cooperative, comfortable and lethargic ORIENTATION/CONSCIOUSNESS: Yes lethargic HENMT: COMMON NORMALS: normocephalic, atraumatic and hearing grossly normal bilaterally HEAD & SCALP: normocephalic and atraumatic Neck/C-Spine: COMMON NORMALS: no JVD Resp: COMMON NORMALS: normal respiratory effort, No retractions, No use of accessory muscles and clear to auscultation bilaterally AUSCULTATION: clear to auscultation bilaterally Cardio: COMMON NORMALS: no JVD, regular rate, regular rhythm and No murmurs present (Cardio) RATE: regular rate RHYTHM: regular rhythm GI: COMMON NORMALS: Soft to palpation and No hepatosplenomegaly present AUSCULTATION: Yes normoactive bowel sounds PALPATION: Yes Soft to palpation, No Tenderness to palpation present (GI), No Guarding due to palpation present (GI) and Yes No hepatosplenomegaly present Extremity: COMMON NORMALS: normal to inspection, capillary refill normal, no clubbing, cyanosis or edema, no calf tenderness and no pedal edema Neuro: SENSORIUM/ORIENTATION: Yes lethargic Skin: COMMON NORMALS: no rashes or lesions noted GENERAL SKIN EXAM: no rashes or lesions noted Course Vital Signs: Vital signs: Vital Signs Pulse Rate 105 H 06/02/22 08:19 Respiratory Rate 18 06/02/22 08:19 Blood Pressure 121/86 06/02/22 08:19 Pulse Oximetry 93 06/02/22 08:19 MDM - Overdose Medical Decision Making Patient given Narcan his symptoms improved. He reiterates repeatedly he just took a large amount to try to get rid of the pain it did not intend to harm himself. There is no other family around. He specifically denies any suicidal ideation or intent. At this point I do not have anything that leads me to believe otherwise. We will monitor him for time and then discharged him home encouraged him to take prescription medications as prescribed and not to increase the doses beyond prescription. Recheck if has further problems. Medical Records I reviewed the patient's medical records. Lab Data I reviewed the patient's lab results. : 06/02/22 08:31 06/02/22 08:31 Laboratory Results WBC 13.8 10^3/uL (4.0-10.0) H 06/02/22 08:31 RBC 4.49 10^6/uL (4.1-5.3) 06/02/22 08:31 Hgb 14.0 g/dL (11.7-16.6) 06/02/22 08: Hct 40.7 % (42.0-52.0) L 06/02/22 08:31 MCV 90.6 fl (80-94) 06/02/22 08: MCH 31.2 pg (28.0-34.0) 06/02/22 08: MCHC 34.4 g/dL (30.0-36.0) 06/02/22 08:31 RDW 12.9 % (12.1-15.1) 06/02/22 08:31 Plt Count 269 10^3/cmm (130-400) 06/02/22 08:31 MPV 8.8 fL (7.4-10.4) 06/02/22 08:31 Neut % (Auto) 89.9 % 06/02/22 08:31 Lymph % (Auto) 6.7 % 06/02/22 08:31 [place] % (Auto) 2.5 % 06/02/22 08:31 Eos % (Auto) 0.3 % 06/02/22 08:31 Baso % (Auto) 0.2 % 06/02/22 08:31 Neut # (Auto) 12.43 10^3/uL (1.8-7.7) H 06/02/22 08:31 Lymph # (Auto) 0.9 10^3/uL (0.8-4.8) 06/02/22 08:31 [place] # (Auto) 0.3 10^3/uL (0.2-0.9) 06/02/22 08:31 Eos # (Auto) 0.0 10^3/uL (0.0-0.8) 06/02/22 08:31 Baso # (Auto) 0.0 10^3/uL (0.0-0.1) 06/02/22 08:31 Nucleated RBC % (auto) 0 % 06/02/22 08:31 Nucleated RBCs # 0.0 /100WBC 06/02/22 08:31 Sodium 127 mmol/L (136-145) L 06/02/22 08:31 Potassium 4.6 mmol/L (3.5-5.1) 06/02/22 08:31 Chloride 93 mmol/L (98-107) L 06/02/22 08:31 Carbon Dioxide 29 mmol/L (22-29) 06/02/22 08:31 Anion Gap 9.6 (5-19) 06/02/22 08:31 BUN 9 mg/dL (6-20) 06/02/22 08:31 Creatinine 0.7 mg/dL (0.7-1.2) 06/02/22 08:31 GFR Calculation 128.3 mL/min (90-130) 06/02/22 08:31 Glucose 126 mg/dL (65-115) H 06/02/22 08:31 Calculated Osmolality 264 mOsm/kg (285-295) L 06/02/22 08:31 Calcium 8.8 mg/dL (8.5-10.5) 06/02/22 08:31 Total Bilirubin 0.3 mg/dL (0.15-1.2) 06/02/22 08:31 AST 12 U/L (0-40) 06/02/22 08:31 ALT 10 U/L (0-41) 06/02/22 08:31 Alkaline Phosphatase 123 IU/L (40-130) 06/02/22 08:31 Total Protein 6.7 g/dL (6.6-8.7) 06/02/22 08:31 Albumin 4.1 g/dL (3.5-5.2) 06/02/22 08:31 Globulin 2.6 g/dL (1.3-4.6) 06/02/22 08:31 Urine Color Yellow (Yellow) 06/02/22 09:17 Urine Appearance Clear (CLEAR) 06/02/22 09:17 Urine pH 7 (5-7) 06/02/22 09:17 Ur Specific [place] 1.010 (1.005-1.030) 06/02/22 09:17 Urine Protein Neg (Negative) 06/02/22 09:17 Urine Glucose (UA) Norm (Normal) 06/02/22 09:17 Urine Ketones Negative (Negative) 06/02/22 09:17 Urine Blood Neg (Negative) 06/02/22 09:17 Urine Nitrate Negative (Negative) 06/02/22 09:17 Urine Bilirubin Neg (Negative) 06/02/22 09:17 Urine Urobilinogen Norm mg/dL (Negative) 06/02/22 09:17 Ur Leukocyte Esterase Negative (Negative) 06/02/22 09:17 Salicylates < 0.3 mg/dL (3-10) L 06/02/22 08:31 Urine Opiates Screen Positive ng/mL (Negative) H 06/02/22 09:17 Acetaminophen < 5.0 ug/mL (10-30) L 06/02/22 08:31 Ur Barbiturates Screen Negative ng/mL (Negative) 06/02/22 09:17 Ur Phencyclidine Scrn Negative ng/mL (Negative) 06/02/22 09:17 Ur Amphetamines Screen Negative ng/mL (Negative) 06/02/22 09:17 U Benzodiazepines Scrn Positive ng/mL (Negative) H 06/02/22 09:17 Urine Cocaine Screen Negative ng/mL (Negative) 06/02/22 09:17 U Marijuana (THC) Screen Positive ng/mL (Negative) H 06/02/22 09:17 Ethyl Alcohol < 10 mg/dL (0-10) 06/02/22 08:31 Discharge Plan Discharge Patient Disposition: Home Clinical Impression: Accidental codeine overdose Condition: Stable Prescriptions: No Action quetiapine [Seroquel] 200 mg tablet 200 mg PO DAILY 0RF gabapentin [Neurontin] 600 mg tablet 600 mg PO DAILY 0RF sofosbuvir 400 mg tablet 400 mg PO DAILY 0RF ondansetron HCl 4 mg tablet 4 mg PO DAILY PRN (Reason: nausea and vomiting) 5 Days Qty: 30 0RF pantoprazole [Protonix] 40 mg Tablet,Delayed Release (Dr/Ec) 40 mg PO BID 0RF lisinopril 10 mg Tablet 20 mg PO DAILY 0RF albuterol sulfate [ProAir HFA] 90 mcg/actuation Hfa Aerosol Inhaler 2 puff INHALATION Q6H PRN (Reason: Shortness Of Breath) 0RF atenolol 50 mg Tablet 50 mg PO BID 0RF cetirizine 10 mg Tablet 10 mg PO DAILY 0RF lactulose 10 gram/15 mL (15 mL) solution 20 g PO TID Qty: 600 0RF quetiapine 200 mg tablet 200 mg PO BEDTIME 0RF risperidone 2 mg tablet 2 mg PO BID 0RF alprazolam 1 mg tablet 1 mg PO BID PRN (Reason: Anxiety) 0RF Discharge Orders: Discharge ED (Routine); Ordered 06/02/22 Ordered By: Sriram Chicas Referrals: Yamile Marsh, [Primary Care Provider] - Discharge Diet: Usual diet Discharge Activity: Increase activity as tolerated Patient Instructions: Opioid Safety Activity Restrictions/Additional Instructions: Do not take prescribed medications more often than is written for. Coding Level of Care Code ED Casing In Line Feeder for Crystal Fwd Exam Comprehensive
[2022-06-02 08:47] LABS: Basophils % 0.2 %; Eosinophils % 0.3 %; Hematocrit 40.7 % (42.0-52.0); Lymphocytes # 0.9 10^3/uL (0.8-4.8); Lymphocytes % 6.7 %; Mean Corpuscular HGB Conc 34.4 g/dL (30.0-36.0); Mean Corpuscular Hemoglobin 31.2 pg (28.0-34.0); Mean Corpuscular Volume 90.6 fl (80-94); Mean Platelet Volume 8.8 fL (7.4-10.4); Monocytes # 0.3 10^3/uL (0.2-0.9); Monocytes % 2.5 %; Neutrophils # 12.43 10^3/uL (1.8-7.7); Neutrophils % 89.9 %; Nucleated Red Blood Cells % 0 %; Platelet Count 269 10^3/cmm (130-400); Red Blood Count 4.49 10^6/uL (4.1-5.3); Red Cell Distribution Width 12.9 % (12.1-15.1); White Blood Count 13.8 10^3/uL (4.0-10.0)
[2022-06-02 09:37] LABS: Alanine Aminotransferase 10 U/L (0-41); Albumin Level 4.1 g/dL (3.5-5.2); Alkaline Phosphatase 123 IU/L (40-130); Anion Gap 9.6 (5-19); Aspartate Amino Transferase 12 U/L (0-40); Blood Urea Nitrogen 9 mg/dL (6-20); Calcium 8.8 mg/dL (8.5-10.5); Carbon Dioxide 29 mmol/L (22-29); Chloride 93 mmol/L (98-107); Globulin 2.6 g/dL (1.3-4.6); Glomerular Filtration Rate 128.3 mL/min (90-130); Glucose 126 mg/dL (65-115); Osmolality Calculated 264 mOsm/kg (285-295); Potassium 4.6 mmol/L (3.5-5.1); Sodium 127 mmol/L (136-145); Total Bilirubin 0.3 mg/dL (0.15-1.2); Total Protein 6.7 g/dL (6.6-8.7)
[2022-06-02 09:41] LABS: Acetaminophen < 5.0 ug/mL (10-30); Alcohol Level < 10 mg/dL (0-10); Salicylate < 0.3 mg/dL (3-10)
[2022-06-02 10:03] LABS: Add Urine Microscopic? NO; Charge for UA Resulting for Rev
[2022-06-02 10:07] LABS: Bilirubin Urine Neg (Negative); Blood Urine Neg (Negative); Glucose Urine UA Norm (Normal); Ketones Urine Negative (Negative); Leukocyte Esterase Urine Negative (Negative); Nitrate Urine Negative (Negative); Protein Urine Neg (Negative); Urine Appearance Clear (CLEAR); Urine Color Yellow (Yellow); Urobilinogen Urine Norm (Negative); pH Urine 7 (5-7)
[2022-06-02 10:16] LABS: Amphetamines Screen Urine Negative (Negative); Barbiturates Screen Urine Negative (Negative); Benzodiazepines Screen Urine Positive (Negative); Cocaine Screen Urine Negative (Negative); Opiate Screen Urine Positive (Negative); PCP Screen Urine Negative (Negative); THC Screen Urine Positive (Negative)
== END 2022-06-02 12:42 | disposition home or self-care (01) ==
PROVIDERS: Emergency Provider Family Medicine; PCP Family Medicine
DX: T40.2X1A Poisoning by other opioids, accidental (unintentional), initial encounter (principal); Z86.19 Personal history of other infectious and parasitic diseases; F17.210 Nicotine dependence, cigarettes, uncomplicated
CPT/HCPCS: 80053; 80306; 80307; 81003; 85025; 96374; 99284; J2310

== ENCOUNTER → 2022-06-08 14:04 | Outpatient (BNVA) | payer MEDICAID, SELFPAY | PROVIDERS: PCP Family Medicine; Visit Provider Internal Medicine | DX: E05.90 Thyrotoxicosis, unspecified without thyrotoxic crisis or storm (principal); F41.9 Anxiety disorder, unspecified; H05.20 Unspecified exophthalmos; H53.2 Diplopia; F17.210 Nicotine dependence, cigarettes, uncomplicated | CPT/HCPCS: 36415; 83516; 84439; 84443; 84480; 86376; 86800; 99204 ==

== ENCOUNTER → 2022-08-04 15:24 | Outpatient (BNVA) | payer MEDICAID, SELFPAY | PROVIDERS: PCP Family Medicine; Visit Provider Internal Medicine | DX: B19.20 Unspecified viral hepatitis C without hepatic coma (principal); R76.8 Other specified abnormal immunological findings in serum | CPT/HCPCS: 87522 ==

== ENCOUNTER 2022-08-13 23:36 | Emergency (ER) | payer MEDICAID, SELFPAY ==
[2022-08-13 23:53] VITALS: BP 114/78; PULSE 97; RESP 16; TEMP 36.4; O2SAT 95; BMI 30.1
--- NOTE | 2022-08-14 00:44 | W.ED.ANXIETY ---
HPI - Anxiety General: Chief Complaint: Anxiety Stated Complaint: ANXIETY Time Seen by Provider: 08/14/22 00:28 History of Present Illness: Patient is in today for complaints of anxiety and sciatic pain. Patient advises that his primary care provider moved for [place] to [place] and now he is out of all of his pain medications and anxiety medications. He reports that he has not had Xanax or hydrocodone in 2 days and he is going to go through withdrawals. He is mostly concerned about the Xanax because he can have seizures. He reports that he has chronic sciatica pain from a previous major injury to his back. He denies any thoughts of hurting himself or others at this time. Associated symptoms: Deny chest pain, chills, fever(s), headache(s) or palpitations Review of Systems Const: Denies: fever(s), chills or body aches Card: Denies: chest pain or palpitations Resp: Denies: dyspnea GI: Reports: change in bowel habits (Diarrhea) Neuro: Denies: headache(s) Psych: Reports: anxiety COUNT INCLUDES THE [facility] ED PFSH: Medical History Generalized anxiety disorder Hepatitis C Intervertebral disc disorder with radiculopathy of lumbosacral region Post-traumatic stress disorder, chronic Spondylolisthesis, lumbosacral region Surgical History History of appendectomy History of fusion of cervical spine 2009 Dr. Beth Andino C5-C6 ACDFF History of knee surgery Family History Family/Other Heart disease Grandfather Dementia Social History Smoking and tobacco status: current every day smoker Alcohol intake: current Household members: spouse Marital status: Current occupational status: unemployed History of recent travel: No Physical Exam Const: COMMON NORMALS: no acute distress, patient oriented x3 and alert Resp: COMMON NORMALS: normal respiratory effort, No use of accessory muscles and clear to auscultation bilaterally AUSCULTATION: clear to auscultation bilaterally Cardio: COMMON NORMALS: regular rate, regular rhythm, S1 normal heart sound present and S2 normal heart sound present RATE: regular rate RHYTHM: regular rhythm HEART SOUNDS: S1 normal heart sound present and S2 normal heart sound present Neuro: COMMON NORMALS: patient oriented x3, CN's II-XII intact bilaterally and moves all extremities SENSORIUM/ORIENTATION: Yes alert Psych: COMMON NORMALS: mental status grossly normal, cooperative and speech normal SPEECH: Yes normal speech Course Vital Signs: Vital signs: Vital Signs Temperature 97.6 F 08/13/22 23:53 Pulse Rate 97 08/13/22 23:53 Respiratory Rate 16 08/13/22 23:53 Blood Pressure 114/78 08/13/22 23:53 Pulse Oximetry 95 08/13/22 23:53 Oxygen Delivery Me thod 08/13/22 23:53 MDM - Anxiety Medical Decision Making 37-year-old male patient that is in today for Xanax and hydrocodone. He reports that his primary care provider stopped prescribing these to him and he has been out now for 2 days. He is concerned about withdrawals. Review of patient's chart shows that he was in here in June for an overdose on codeine. Review of patient's chart does not show that the patient is prescribed hydrocodone on a routine basis. He tells me that he is prescribed this medication 10 mg [place] 4 times a day for sciatica. He also reports that he is on alprazolam 0.5 mg 4 times daily for anxiety. Upon review of the chart I can see that he is prescribed alprazolam 1 mg p.o. twice daily as needed. It does not look like he has prescribed hydrocodone but he is on gabapentin. I did discuss this with the patient. I will give 1 dose of alprazolam to him today to buy him time to be able to speak with his primary care provider on Tuesday. I will not provide scripts for home use. I am unable to see the patient's chart from his primary care provider and I have concerns as to why the patient is no longer being prescribed these medications. I did offer to prescribe patient clonidine to help with withdrawal symptoms. He declines. Patient is discharged to home to follow-up with primary care provider first thing Tuesday morning. Patient spouse is supposed to be driving him tonight Lab Data Laboratory Results Urine Opiates Screen Negative ng/mL (Negative) 08/14/22 01:09 Ur Barbiturates Screen Negative ng/mL (Negative) 08/14/22 01:09 Ur Phencyclidine Scrn Negative ng/mL (Negative) 08/14/22 01:09 Ur Amphetamines Screen Negative ng/mL (Negative) 08/14/22 01:09 U Benzodiazepines Scrn Positive ng/mL (Negative) H 08/14/22 01:09 Urine Cocaine Screen Negative ng/mL (Negative) 08/14/22 01:09 U Marijuana (THC) Screen Positive ng/mL (Negative) H 08/14/22 01:09 Discharge Plan Discharge Patient Disposition: Home Clinical Impression: Acute anxiety Condition: Stable Prescriptions: No Action gabapentin [Neurontin] 600 mg tablet 600 mg PO TID sofosbuvir 400 mg tablet 400 mg PO DAILY lidocaine HCl 4 % (40 mg/mL) solution 52 mg mucous membrane Q8H Qty: 50 1RF ondansetron HCl 4 mg tablet 4 mg PO DAILY PRN (Reason: nausea and vomiting) 5 Days Qty: 30 0RF Xifaxan 550 mg tablet 550 mg PO BID Qty: 60 3RF pantoprazole [Protonix] 40 mg Tablet,Delayed Release (Dr/Ec) 40 mg PO BID lisinopril 10 mg Tablet 20 mg PO DAILY albuterol sulfate [ProAir HFA] 90 mcg/actuation Hfa Aerosol Inhaler 2 puff INHALATION Q6H PRN (Reason: Shortness Of Breath) atenolol 50 mg Tablet 50 mg PO BID cetirizine 10 mg Tablet 10 mg PO DAILY quetiapine 200 mg tablet 200 mg PO BEDTIME risperidone 2 mg tablet 2 mg PO BID alprazolam 1 mg tablet 1 mg PO BID PRN (Reason: Anxiety) Discharge Orders: Discharge ED (Routine); Ordered 08/14/22 Ordered By: Rosa Isela White Discharge Diet: Usual diet Discharge Activity: Resume usual activity Patient Instructions: Anxiety (ED) Activity Restrictions/Additional Instructions: Follow-up with your primary care Tuesday morning to determine plan for future medications. Return to the ER as needed for new or worsening symptoms. Coding Level of Care Code ED Clinical Material Handler for Crystal Golden
[2022-08-14 01:27] LABS: Amphetamines Screen Urine Negative (Negative); Barbiturates Screen Urine Negative (Negative); Benzodiazepines Screen Urine Positive (Negative); Cocaine Screen Urine Negative (Negative); Opiate Screen Urine Negative (Negative); PCP Screen Urine Negative (Negative); THC Screen Urine Positive (Negative)
[2022-08-14] MEDS: ALPRAZolam 0.5 mg Tablet PO (02:01)
== END 2022-08-14 02:06 | disposition home or self-care (01) ==
PROVIDERS: Emergency Provider Nurse Practitioner Family
DX: F41.9 Anxiety disorder, unspecified (principal); F17.210 Nicotine dependence, cigarettes, uncomplicated
CPT/HCPCS: 80306; 99283

== ENCOUNTER → 2022-08-23 16:15 | Outpatient (BNVA) | payer MEDICAID, SELFPAY | PROVIDERS: Visit Provider Nurse Practitioner Family | DX: E05.90 Thyrotoxicosis, unspecified without thyrotoxic crisis or storm (principal); F41.9 Anxiety disorder, unspecified | CPT/HCPCS: 84439; 84443; 84480 ==

== ENCOUNTER 2022-09-01 01:38 | Emergency (ER) | payer MEDICAID, SELFPAY ==
[2022-09-01] VITALS (10 sets, daily range): BP systolic 97–129; BP diastolic 58–86; PULSE 67–82; RESP 15–19; TEMP 36.7; O2SAT 91–97; BMI 27.8
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
[2022-09-01 02:16] LABS: Amphetamines Screen Urine Negative (Negative); Barbiturates Screen Urine Negative (Negative); Benzodiazepines Screen Urine Positive (Negative); Cocaine Screen Urine Negative (Negative); Opiate Screen Urine Negative (Negative); PCP Screen Urine Negative (Negative); THC Screen Urine Positive (Negative)
[2022-09-01 02:23] LABS: Alanine Aminotransferase 11 U/L (0-41); Alcohol Level 58 mg/dL (0-10); Alkaline Phosphatase 138 U/L (40-130); Aspartate Amino Transferase 16 U/L (0-40); Blood Urea Nitrogen 4 mg/dL (6-20); Calcium 8.9 mg/dL (8.5-10.5); Carbon Dioxide 24 mmol/L (22-29); Chloride 100 mmol/L (98-107); Globulin 2.7 g/dL (1.3-4.6); Glomerular Filtration Rate 152.4 mL/min (90-130); Glucose 92 mg/dL (65-115); Osmolality Calculated 279 mOsm/kg (285-295); Sodium 136 mmol/L (136-145); Total Bilirubin 0.3 mg/dL (0.15-1.2); Total Protein 6.7 g/dL (6.6-8.7)
[2022-09-01 02:24] LABS: Ammonia 68 umol/L (16-60)
--- NOTE | 2022-09-01 02:32 | PC.NURSE ---
Pt resting with eyes closed but responds to verbal simuli, pt is drowsy and oxygen saturation dropping to high 80s unless awoken and reminded to breathe deep. Placed pt on 2L NC
[2022-09-01 02:52] LABS: Basophils % 0.4 %; Eosinophils # 0.5 10^3/uL (0.0-0.8); Eosinophils % 6.6 %; Hematocrit 37.5 % (42.0-52.0); Lymphocytes # 3.8 10^3/uL (0.8-4.8); Lymphocytes % 50.5 %; Mean Corpuscular HGB Conc 34.7 g/dL (30.0-36.0); Mean Corpuscular Hemoglobin 31.9 pg (28.0-34.0); Mean Corpuscular Volume 92.1 fl (80-94); Mean Platelet Volume 8.5 fL (7.4-10.4); Monocytes # 0.5 10^3/uL (0.2-0.9); Monocytes % 7.2 %; Neutrophils # 2.64 10^3/uL (1.8-7.7); Neutrophils % 34.9 %; Nucleated Red Blood Cells % 0 %; Platelet Count 268 10^3/cmm (130-400); Red Blood Count 4.07 10^6/uL (4.1-5.3); White Blood Count 7.6 10^3/uL (4.0-10.0)
[2022-09-01 03:02] LABS: Acetaminophen < 5.0 ug/mL (10-30); Salicylate < 0.3 mg/dL (3-10)
[2022-09-01 03:03] LABS: Anion Gap 15.8 (5-19); Potassium 3.8 mmol/L (3.5-5.1)
[2022-09-01] MEDS: sodium chloride 0.9% 1,000 ML 999 ML IV (03:11)
--- NOTE | 2022-09-01 04:37 | PC.NURSE ---
pt awoke and removed NC, O2 sat 94%, O2 d/c
== END 2022-09-01 06:00 | disposition home or self-care (01) ==
PROVIDERS: Emergency Provider Emergency Medicine
DX: F10.129 Alcohol abuse with intoxication, unspecified (principal); Y90.2 Blood alcohol level of 40-59 mg/100 ml; F12.90 Cannabis use, unspecified, uncomplicated; Z86.19 Personal history of other infectious and parasitic diseases; F17.210 Nicotine dependence, cigarettes, uncomplicated
CPT/HCPCS: 36415; 80053; 80306; 80307; 82140; 85025; 96360; 99284; J7030

== ENCOUNTER 2023-01-09 16:17 | Inpatient (IN) | payer MEDICAID, SELFPAY ==
[2023-01-09] VITALS (17 sets, daily range): BP systolic 105–118; BP diastolic 74–89; PULSE 91–112; RESP 12–20; TEMP 37.2; O2SAT 86–92; BMI 28.8
--- NOTE | 2023-01-09 16:39 | ECG_ITS ---
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 Measurements Intervals [place] Rate: P: 0 CA: 0 QRS: 0 QRSD: 0 T: 0 QT: 0 QTc: 0 Interpretive Statements SINUS TACHYCARDIA Compared to ECG 08/23/2021 00:22:26 Sinus rhythm no longer present Electronically Signed On 01-10-2023 17:31:47 OPERATOR SUPPLY by Franklyn Carpenter M.D. [email or web address]
[2023-01-09 16:41] LABS: Blood Gas Allen Test Pos; Blood Gas Sample Site Radial, right; Blood Gas Sample Type Arterial
--- NOTE | 2023-01-09 16:42 | CTR_ITS ---
PROCEDURE INFORMATION: Exam: CT Head Without Contrast Exam date and time: 01/09/2023 5:16 PM Age: 37 years old Clinical indication: Altered mental status/memory loss; Confusion or disorientation; Additional info: AMS, cannot hear out of either ear TECHNIQUE: Imaging protocol: Computed tomography of the head without contrast. Radiation optimization: All CT scans at this facility use at least one of these dose optimization techniques: automated exposure control; mA and/or kV adjustment per patient size (includes targeted exams where dose is matched to clinical indication); or iterative reconstruction. REPORTING DATA: Count of CT and Cardiac NM exams in prior 12 months: This patient has received 0 known CTs and 0 known cardiac nuclear medicine studies in the 12 months prior to the current study. COMPARISON: CT head wo con* [id number] 08/22/2021 10:58 PM RADIATION DOSE METRICS: Total DLP (mGy-cm): 1130.14 FINDINGS: Brain: Normal. No hemorrhage. Unremarkable white matter. No mass effect. Cerebral ventricles: No ventriculomegaly. Paranasal sinuses: Paranasal sinus opacifications. Mastoid air cells: Visualized mastoid air cells are well aerated. Bones/joints: Unremarkable. No acute fracture. Soft tissues: Unremarkable. CT/CT head wo con* [id number] IMPRESSION: Negative for intracranial hemorrhage or mass effect.
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
[2023-01-09 16:46] LABS: Basophils % 0.2 %; Hematocrit 41.5 % (42.0-52.0); Hemoglobin 13.1 g/dL (11.7-16.6); Lymphocytes # 1.4 10^3/uL (0.8-4.8); Lymphocytes % 7.8 %; Mean Corpuscular HGB Conc 31.6 g/dL (30.0-36.0); Mean Corpuscular Hemoglobin 29.5 pg (28.0-34.0); Mean Corpuscular Volume 93.5 fl (80-94); Mean Platelet Volume 8.9 fL (7.4-10.4); Monocytes # 1.4 10^3/uL (0.2-0.9); Monocytes % 7.4 %; Neutrophils # 15.49 10^3/uL (1.8-7.7); Neutrophils % 84.2 %; Nucleated Red Blood Cells % 0 %; Platelet Count 297 10^3/cmm (130-400); Red Blood Count 4.44 10^6/uL (4.1-5.3); Red Cell Distribution Width 13.9 % (12.1-15.1); White Blood Count 18.4 10^3/uL (4.0-10.0)
[2023-01-09] MEDS: sodium chloride 0.9% 1,000 ML 999 ML IV (16:54)
[2023-01-09 17:08] LABS: Alanine Aminotransferase 12 U/L (0-41); Albumin Level 4.1 g/dL (3.5-5.2); Alkaline Phosphatase 153 U/L (40-130); Anion Gap 15.5 (5-19); Aspartate Amino Transferase 18 U/L (0-40); Blood Urea Nitrogen 13 mg/dL (6-20); Calcium 8.7 mg/dL (8.5-10.5); Carbon Dioxide 29 mmol/L (22-29); Chloride 98 mmol/L (98-107); Globulin 2.9 g/dL (1.3-4.6); Glomerular Filtration Rate 84.5 mL/min (90-130); Glucose 94 mg/dL (65-115); Osmolality Calculated 284 mOsm/kg (285-295); Potassium 5.5 mmol/L (3.5-5.1); Sodium 137 mmol/L (136-145); Total Bilirubin 0.4 mg/dL (0.15-1.2)
--- NOTE | 2023-01-09 17:09 | PC.PHAR ---
pt unable to verify due to OD
[2023-01-09 17:16] LABS: Lactate (Lactic Acid level) 2.1 mmol/L (0.5-2.2)
[2023-01-09 17:23] LABS: Acetaminophen < 5.0 ug/mL (10-30); Alcohol Level < 10 mg/dL (0-10); Salicylate < 0.3 mg/dL (3-10)
[2023-01-09 17:43] LABS: Amphetamines Screen Urine Negative (Negative); Barbiturates Screen Urine Negative (Negative); Benzodiazepines Screen Urine Positive (Negative); Cocaine Screen Urine Negative (Negative); Opiate Screen Urine Negative (Negative); PCP Screen Urine Negative (Negative); THC Screen Urine Positive (Negative)
[2023-01-09 17:55] LABS: Ammonia 93 umol/L (16-60)
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
[2023-01-09] MEDS: naloxone 0.4 mg/ml SDV IVP (18:57)
--- NOTE | 2023-01-09 19:07 | XRR_ITS ---
PROCEDURE INFORMATION: Exam: XR Chest Exam date and time: 01/09/2023 7:10 PM Age: 37 years old Clinical indication: Other: Hypoxia TECHNIQUE: Imaging protocol: Radiologic exam of the chest. Views: 1 view. COMPARISON: CR XR chest 1V portable [id number] 08/22/2021 11:09 PM FINDINGS: Lungs: Minimal left lower lobe atelectasis versus early infiltrate. Pleural spaces: Unremarkable. No pleural effusion. No pneumothorax. Heart/Mediastinum: Unremarkable. No cardiomegaly. Bones/joints: Unremarkable. XR/XR chest 1V portable [id number] IMPRESSION: Minimal left lower lobe atelectasis versus early infiltrate.
[2023-01-09] MEDS: sodium chloride 0.9% 1,000 ML 75 ML IV (21:29)
[2023-01-10] VITALS (76 sets, daily range): BP systolic 95–153; BP diastolic 62–97; PULSE 84–119; RESP 11–33; TEMP 36.9–37.7; O2SAT 87–98
[2023-01-10 04:12] LABS: Basophils % 0.2 %; Hematocrit 39.5 % (42.0-52.0); Hemoglobin 12.3 g/dL (11.7-16.6); Lymphocytes # 2.2 10^3/uL (0.8-4.8); Lymphocytes % 13.2 %; Mean Corpuscular HGB Conc 31.1 g/dL (30.0-36.0); Mean Corpuscular Hemoglobin 29.8 pg (28.0-34.0); Mean Corpuscular Volume 95.6 fl (80-94); Mean Platelet Volume 9.3 fL (7.4-10.4); Monocytes # 1.6 10^3/uL (0.2-0.9); Monocytes % 9.2 %; Neutrophils # 12.91 10^3/uL (1.8-7.7); Neutrophils % 76.6 %; Nucleated Red Blood Cells % 0 %; Platelet Count 275 10^3/cmm (130-400); Red Blood Count 4.13 10^6/uL (4.1-5.3); Red Cell Distribution Width 13.9 % (12.1-15.1); White Blood Count 16.9 10^3/uL (4.0-10.0)
[2023-01-10 04:28] LABS: Anion Gap 13.9 (5-19); Blood Urea Nitrogen 14 mg/dL (6-20); Calcium 7.8 mg/dL (8.5-10.5); Carbon Dioxide 28 mmol/L (22-29); Chloride 103 mmol/L (98-107); Glomerular Filtration Rate 84.5 mL/min (90-130); Glucose 93 mg/dL (65-115); Magnesium 2.1 mg/dL (1.7-2.3); Osmolality Calculated 290 mOsm/kg (285-295); Phosphorus 4.4 mg/dL (2.5-4.5); Potassium 4.9 mmol/L (3.5-5.1); Sodium 140 mmol/L (136-145)
[2023-01-10 04:29] LABS: ABG PH Result 7.33 (7.35-7.45); Alveolar-Arterial Oxygen Gradi 2.4 mmHg (5-10); Arterial Blood Gas Hematocrit 29.2 % (42-52); Base Excess ABG -7.6 mmol/L (-2.0-2.0); HCO3 ABG 17.5 mmol/L (22-26); HGB O2 Sat 94.9 % (95-100); Ionized Calcium Level - ABG 1.1 mmol/L (1.1-1.4); Methemoglobin 1.3 % (0.4-1.5); Methemoglobin ABG 1.3 g/dL; Oxygen Device OXY MASK; Oxygen Saturation ABG 97.1; PO2 ABG 86.3 mmHg (80.0-100.0); Potassium Level - ABG 2.8 mmol/L (3.5-5.0); Total Hemoglobin 9.5 g/dL (14-18)
[2023-01-10 05:05] LABS: Arterial Blood Gas Hematocrit 38.9 % (42-52); Base Excess ABG 0.1 mmol/L (-2.0-2.0); Blood Gas Allen Test Pos; Blood Gas Sample Site Radial, right; Blood Gas Sample Type Arterial; HCO3 ABG 31.9 mmol/L (22-26); Oxygen Device OXY MASK
[2023-01-10 06:16] LABS: ABG PH Result 7.24 (7.35-7.45); Arterial Blood Gas Hematocrit 39.1 % (42-52); Base Excess ABG 2.2 mmol/L (-2.0-2.0); Blood Gas Allen Test Pos; Blood Gas Sample Site Radial, right; Blood Gas Sample Type Arterial; HCO3 ABG 31.7 mmol/L (22-26); Oxygen Device BIPAP; PO2 ABG 51.3 mmHg (80.0-100.0)
[2023-01-10] MEDS: lisinopril 20 mg Tablet PO (08:06)
[2023-01-10] MEDS: sennosides-docusate Tablet 1 TAB PO (08:06)
[2023-01-10] MEDS: pantoprazole DR 40 mg Tablet PO ×2 (08:07→17:37)
[2023-01-10] MEDS: gabapentin 300 mg Capsule 600 MG PO ×3 (08:07→20:07)
[2023-01-10] MEDS: risperiDONE 1 mg Tablet 2 MG PO ×2 (08:24→17:37)
--- NOTE | 2023-01-10 09:03 | P.PN_ITS ---
Subjective Subjective: Currently on BiPAP Resume diet Repeat blood gas in 4045 minutes If stable by evening today by agreeable to go to n.p.u. Vitals/I&O/Wt Last Vital Signs Temp 98.7 F 01/10/23 04:00 Pulse 98 01/10/23 07:53 Resp 12 01/10/23 06:00 BP 136/90 01/10/23 06:00 Pulse Ox 97 01/10/23 07:53 O2 Del Method 01/10/23 06:00 O2 Flow Rate 12 01/10/23 04:00 FiO2 30 01/10/23 07:53 01/09/23 01/10/23 01/10/23 22:59 06:59 14:59 Intake Total 1000 / 1000 Output Total 500 / 500 Balance 1000 / 1000 -500 / 500 Weight last 48 hrs Weight 85.956 kg Weight 85.956 kg Physical Exam Narrative: Patient is awake and alert Positive asterixis Able to follow commands Nonfocal neuro exam Diminished airflow despite being on BiPAP Hemodynamically stable S1, S2 Abdomen soft Euvolemic Data 01/10/23 03:24 01/10/23 03:24 A&P Assessment and plan (1) Opiate abuse, episodic: (2) Overdose: (3) Near- experience: (4) Acute hypoxemic respiratory failure: (5) Hyperammonemia: (6) Diplopia: (7) Exophthalmos: (8) Severe anxiety: (9) Hepatitis C: Plan Opioid overdose Hypoventilation Hypoxia hypercapnia Bipolar disorder Once patient is medically cleared he will go to stress unit Continue BiPAP for now Currently he is on AVAPS Hypoxia hypercapnia slightly improved Liver cirrhosis secondary to hep C, high ammonia continue lactulose and rifaximin Acute hypoxia related to hypoventilation Opioid abuse Positive for benzodiazepines and marijuana Full code Regular diet Schizoaffective disorder Attestations Medical Necessity Statement*: Can be transferred to stress unit once stable later today/tomorrow Diagnoses Opiate abuse, episodic F11.10 Overdose T50.901A Near- experience Z78.9 Acute hypoxemic respiratory failure J96.01 Hyperammonemia E72.20 Diplopia H53.2 Exophthalmos H05.20 Severe anxiety F41.9 Hepatitis C B19.20
[2023-01-10 10:07] LABS: ABG PCO2 58.9 mmHg (35-45); ABG PH Result 7.32 (7.35-7.45); Arterial Blood Gas Hematocrit 36.6 % (42-52); Base Excess ABG 3.2 mmol/L (-2.0-2.0); Blood Gas Allen Test Pos; Blood Gas Operator Identificat GD; Blood Gas Sample Site Radial, right; Blood Gas Sample Type Arterial; HCO3 ABG 30.5 mmol/L (22-26); Oxygen Device BIPAP; PO2 ABG 76.3 mmHg (80.0-100.0)
[2023-01-10] MEDS: lactulose oral liq 20 gm/30 mL UDC 10 GM PO (11:51)
[2023-01-10] MEDS: acetaminophen 500 mg Tablet PO (11:55)
[2023-01-10 12:04] LABS: ABG PCO2 74.1 mmHg (35-45)
[2023-01-10 12:05] LABS: ABG PCO2 95.7 mmHg (35-45); ABG PH Result 7.13 (7.35-7.45)
--- NOTE | 2023-01-10 12:13 | PC.CHAP ---
Pastoral Care Encounter/Spiritual Assessment Type of Contact [] Declined weather teacher visit [] Patient/Family/Request visit [] Outpatient visit [] Follow-up visit [] Physician referral [] Code/Alert [xRoutine visit [] Staff referral [] Actively dying [] Patient sleeping [] Family support [] [] Out of room [] Palliative care [] [] Receiving care in room [] Pre-surgical visit [] Trauma [] Long length of stay [x] ICU visit [x] Other: hard of hearing... but prayed for healing Relational/Emotional Strength [] Patient feels connected with others/family/visitors/staff [] Distress [] Loneliness/isolation [] Abandonment Spirituality of Patient [] Person of Dianna [] Attends Bahai of their Dianna [] Believes in Prayer [] Reads Bible or Taoist materials [] There are Spiritual issues to be addressed Director Social Welfare Interventions [x] Prayer [] Active listening [] Non-anxious presence [] Spiritual/emotional support [] Crisis/trauma care [] Spiritual counseling [] Bereavement support [] Provided bereavement packet [] Provided Bible/devotional materials [] Provided toy/stuffed animal, coloring book to patient or family member [] Provided Communion [] Anointing/[place] [] Salvation [x] Completed spiritual assessment [] Other: Impact on Illness or Injury [] Angry [] Fearful [] Anxious [] Often cries [] Exhaustion [] Unable to work [] Unable to attend yarsani [] Unable to walk/stand [] Unable to read [] Unable to drive [] Unable to eat/drink [] Unable to sleep [] Unable to be with family [] Patient intubated [] Other: Summary Time spent with patient
[2023-01-10] MEDS: nicotine 21 mg Patch 1 PATCH TRANSDERMA (15:55)
--- NOTE | 2023-01-10 18:31 | PC.NURSE ---
Shift SUmmary: uneventful shift. Patient rested in bed throughout the day, occasionally up to the bedside commode. Patient transitions to bedside commode with no assistance. Mental status has improved and he is currently alert to person, place, time, and situation. Occasionally lethargic. On bipap until 4pm and tolerated well.
[2023-01-10] MEDS: quetiapine 100 mg Tablet 200 MG PO (20:07)
[2023-01-10] MEDS: albuterol 2.5 mg/3 mL Neb INHALATION (20:21)
[2023-01-10] MEDS: zolpidem 5 mg Tablet PO (21:50)
--- NOTE | 2023-01-10 22:00 | PC.NURSE ---
Physician Communication Patient slightly anxious about being unable to sleep. Patient sitting up and checking the clock repetitively while asking if he can have ambien. Additionally, patient's oxygen saturation intermittently decreasing to mid-high 80s. 2 L NC placed on patient. Dr. Helton informed of both situations and order placed by physician for 5 mg ambien PO once. See MAR for administration.
[2023-01-11] VITALS (49 sets, daily range): BP systolic 115–150; BP diastolic 67–95; PULSE 84–120; RESP 10–25; TEMP 36.8–37.7; O2SAT 85–98; BMI 28.8
[2023-01-11] MEDS: acetaminophen 500 mg Tablet PO ×2 (00:22→08:29)
[2023-01-11 03:15] LABS: Basophils % 0.3 %; Eosinophils # 0.1 10^3/uL (0.0-0.8); Eosinophils % 1.2 %; Hematocrit 35.2 % (42.0-52.0); Hemoglobin 11.3 g/dL (11.7-16.6); Lymphocytes # 3.3 10^3/uL (0.8-4.8); Lymphocytes % 28.1 %; Mean Corpuscular HGB Conc 32.1 g/dL (30.0-36.0); Mean Corpuscular Hemoglobin 29.5 pg (28.0-34.0); Mean Corpuscular Volume 91.9 fl (80-94); Mean Platelet Volume 9.6 fL (7.4-10.4); Monocytes # 1.4 10^3/uL (0.2-0.9); Monocytes % 11.7 %; Neutrophils # 6.78 10^3/uL (1.8-7.7); Neutrophils % 58.2 %; Nucleated Red Blood Cells % 0 %; Platelet Count 238 10^3/cmm (130-400); Red Blood Count 3.83 10^6/uL (4.1-5.3); Red Cell Distribution Width 13.9 % (12.1-15.1); White Blood Count 11.7 10^3/uL (4.0-10.0)
[2023-01-11 03:31] LABS: Anion Gap 8.3 (5-19); Blood Urea Nitrogen 14 mg/dL (6-20); Calcium 8.4 mg/dL (8.5-10.5); Carbon Dioxide 32 mmol/L (22-29); Chloride 102 mmol/L (98-107); Glomerular Filtration Rate 84.5 mL/min (90-130); Glucose 104 mg/dL (65-115); Osmolality Calculated 289 mOsm/kg (285-295); Potassium 3.3 mmol/L (3.5-5.1); Sodium 139 mmol/L (136-145)
[2023-01-11 05:54] LABS: ABG PCO2 48.7 mmHg (35-45); ABG PH Result 7.48 (7.35-7.45); Arterial Blood Gas Hematocrit 36.9 % (42-52); Base Excess ABG 10.9 mmol/L (-2.0-2.0); Blood Gas Allen Test Pos; Blood Gas Sample Site Radial, right; Blood Gas Sample Type Arterial; Oxygen Device NC; PO2 ABG 56.4 mmHg (80.0-100.0)
[2023-01-11] MEDS: ondansetron 2 mg/ML SDV 2 mL 4 MG IVP ×2 (06:58→12:45)
[2023-01-11] MEDS: pantoprazole DR 40 mg Tablet PO ×2 (08:30→17:11)
[2023-01-11] MEDS: risperiDONE 1 mg Tablet 2 MG PO ×2 (08:30→17:11)
[2023-01-11] MEDS: lisinopril 20 mg Tablet PO (08:30)
[2023-01-11] MEDS: sennosides-docusate Tablet 1 TAB PO (08:30)
[2023-01-11] MEDS: lactulose oral liq 20 gm/30 mL UDC 10 GM PO (08:31)
[2023-01-11] MEDS: gabapentin 300 mg Capsule 600 MG PO ×3 (08:31→20:17)
[2023-01-11] MEDS: nicotine 21 mg Patch 1 PATCH TRANSDERMA (08:32)
[2023-01-11] MEDS: amoxicillin-clav 875-125 mg Tablet 1 TAB PO ×2 (08:36→17:11)
[2023-01-11] MEDS: potassium chloride ER 20 mEq Tablet 40 MEQ PO (09:24)
[2023-01-11] MEDS: FUROsemide 20 mg Tablet PO (09:24)
--- NOTE | 2023-01-11 09:47 | ECG_ITS ---
[facility] Test Date: 2023-01-11 Pat Name: Mick Smith Department: Room: [facility] Gender: Male Data Communications Engineer: : [id number] Requested By: Li Lara Order Number: [id number] Yudy MD: Becca Farris M.D. Measurements Intervals [place] Rate: 92 P: 72 VA: 132 QRS: 62 QRSD: 104 T: 58 QT: 350 QTc: 433 Interpretive Statements SINUS RHYTHM MINIMAL ST DEPRESSION [0.025+ mV ST DEPRESSION] Compared to ECG 01/09/2023 16:39:37 ST (T wave) deviation now present Sinus tachycardia no longer present Electronically Signed On 01-12-2023 16:17:20 LCSW by Becca Farris M.D. [id number]
[2023-01-11] MEDS: lidocaine 2% viscous 15 ML, aluminum-mag hydrox-simethicon 30 ML, sucralfate oral liq 1 GM PO (10:14)
--- NOTE | 2023-01-11 10:18 | PC.NURSE ---
Patient reports chest pain 03/23. Describes it as a crushing pain. Nurse alerted Dr schultz and received orders for EKG. EKG unremarkable. Received orders for GI cocktail
[2023-01-11 10:52] LABS: D Dimer 2.76 ug/mIFEU (0-0.59)
--- NOTE | 2023-01-11 13:04 | PM.PN ---
Subjective Subjective: Today patient complained of chest pain, EKG shows sinus rhythm, requested D-dimer, troponin given GI cocktail, patient is stating that he does not have any anaphylactic reaction to any opioids he just did not want to take those pills he is not reporting any signs of anaphylaxis in the past with opioid Patient is taking he was prescribed methadone 10 mg twice a day regimen at home he took 60 mg without any suicidal attempt or ideation We will transfer him to stress unit once he is off oxygen currently requiring 2 L nasal cannula added Mucomyst endorsing thick sputum production Vitals/I&O/Wt Last Vital Signs Temp 99.6 F 01/11/23 12:00 Pulse 101 H 01/11/23 12:00 Resp 17 01/11/23 12:00 BP 145/84 01/11/23 12:00 Pulse Ox 95 01/11/23 12:00 O2 Del Method 01/11/23 12:00 O2 Flow Rate 2 01/11/23 12:00 FiO2 30 01/11/23 12:00 01/10/23 01/11/23 01/11/23 22:59 06:59 14:59 Intake Total 222 / 1222 1488 / 2710 800 / 800 Output Total 5 / 2225 1500 / 3725 2049 / 2049 Balance -1803 / -1003 -12 / -1015 -1250 / -1250 Weight last 48 hrs Weight 85.956 kg Weight 85.956 kg Weight 85.956 kg Physical Exam Narrative: Currently chest pain-free Awake and alert Currently on 2 L With mild rhonchi and crackles at base of the lungs Abdomen soft Euvolemic AOx3 GCS 15 Pleasant and cooperative No suicidal ideation S1, S2 Sinus tachycardia Data 01/11/23 02:32 01/11/23 02:32 A&P Assessment and plan (1) Opiate abuse, episodic: (2) Overdose: (3) Near- experience: (4) Acute hypoxemic respiratory failure: (5) Hyperammonemia: (6) Diplopia: (7) Exophthalmos: (8) Severe anxiety: (9) Hyperthyroidism: (10) Hepatitis C: Plan Methadone overdose Holding opioids for now No signs of withdrawal He can be given clonidine if starts showing signs of withdrawal Chest discomfort EKG normal requested D-dimer and troponin responded well to GI cocktail, Acute hypoxia related to possible aspiration pneumonia Currently he is on Augmentin Once he is off nasal cannula we can transfer him to Neuropsych Unit Continue 96-hour hold He can be transferred to MPU once off oxygen Added Unasyn and Mucomyst Hypertension: Continue lisinopril Bipolar disorder Dr. Carrion well aware of this patient Full code 1 dose of Lasix given because of crackles in lungs Wean oxygen to room air ICU nurse updated Spoke with Dr. Abilio Shepard Medical Necessity Statement*: Can be transferred to n.p.o. once stable Diagnoses Opiate abuse, episodic F11.10 Overdose T50.901A Near- experience Z78.9 Acute hypoxemic respiratory failure J96.01 Hyperammonemia E72.20 Diplopia H53.2 Exophthalmos H05.20 Severe anxiety F41.9 Hyperthyroidism E05.90 Hepatitis C B19.20
[2023-01-11] MEDS: guaiFENesin 100 mg/5 mL UDC 10 mL 400 MG PO (13:17)
[2023-01-11] MEDS: albuterol 2.5 mg/3 mL Neb INHALATION ×2 (15:45→19:50)
[2023-01-11] MEDS: acetylcysteine 200 mg/mL MDV 10 mL 100 MG INHALATION ×2 (15:45→19:49)
--- NOTE | 2023-01-11 17:45 | PC.NURSE ---
Patient had oxygen turned off at 1600. Since turning it off. Patient has maintained an oxtgen saturation of 90-91% while sleeping. Around 95% when awake. No additional complaints of chest pain. Nurse alerted Dr schultz.
--- NOTE | 2023-01-11 17:48 | PC.NURSE ---
Shift SUmmary: uneventful shift, patient rested in be throughout the day, getting up frequently to the bathroom. Oxygen has been weaned off. Pending transfer to NPU at this time.
[2023-01-11] MEDS: budesonide 0.5 mg/2 mL Neb INHALATION (19:50)
[2023-01-11] MEDS: quetiapine 100 mg Tablet 200 MG PO (20:17)
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
[2023-01-11] MEDS: hyDROXYzine 25 mg Capsule 50 MG PO (22:05)
[2023-01-11] MEDS: LORazepam 2 mg/mL INJ 1 mL IM (22:25)
--- NOTE | 2023-01-11 22:25 | PC.NURSE ---
Patient came to nurse's station crying and pacing. Stated he was extremely anxious and felt agitated. Attempted to redirect patient and discuss relaxation techniques and coping skills. Patient continued to be agitated and could not be redirected. PRN Ativan IM given as ordered. Staff sat with patient for several minutes after administration. Patient cried and repeatedly stated he was a worthless . Encouraged patient to lay down in bed with eyes off and attempt to relax so the medicine could work.
--- NOTE | 2023-01-12 05:13 | PC.NURSE ---
Patient resting quietly with eyes closed. No further behaviors since IM prn. No signs of distress noted.
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
[2023-01-12 08:29] LABS: Basophils % 0.2 %; Eosinophils # 0.2 10^3/uL (0.0-0.8); Eosinophils % 1.5 %; Hemoglobin 13.8 g/dL (11.7-16.6); Lymphocytes # 2.4 10^3/uL (0.8-4.8); Lymphocytes % 18.4 %; Mean Corpuscular HGB Conc 32.9 g/dL (30.0-36.0); Mean Corpuscular Hemoglobin 29.7 pg (28.0-34.0); Mean Corpuscular Volume 90.5 fl (80-94); Mean Platelet Volume 9.2 fL (7.4-10.4); Monocytes # 1.4 10^3/uL (0.2-0.9); Monocytes % 10.8 %; Neutrophils # 9.06 10^3/uL (1.8-7.7); Neutrophils % 68.7 %; Nucleated Red Blood Cells % 0 %; Platelet Count 270 10^3/cmm (130-400); Red Blood Count 4.64 10^6/uL (4.1-5.3); Red Cell Distribution Width 13.9 % (12.1-15.1); White Blood Count 13.2 10^3/uL (4.0-10.0)
[2023-01-12 08:49] LABS: Blood Urea Nitrogen 11 mg/dL (6-20); Calcium 8.9 mg/dL (8.5-10.5); Carbon Dioxide 30 mmol/L (22-29); Chloride 101 mmol/L (98-107); Glomerular Filtration Rate 75.7 mL/min (90-130); Glucose 102 mg/dL (65-115); Osmolality Calculated 290 mOsm/kg (285-295); Sodium 140 mmol/L (136-145)
--- NOTE | 2023-01-12 09:38 | PC.OT ---
OT EVALUATION ATTEMPTED. PATIENT IS SLEEPING SOUNDLY; SNORING. WILL ATTEMPT AGAIN AT A LATER TIME.
[2023-01-12] MEDS: gabapentin 300 mg Capsule 600 MG PO ×3 (09:53→21:55)
[2023-01-12] MEDS: lactulose oral liq 20 gm/30 mL UDC 10 GM PO (09:53)
[2023-01-12] MEDS: sennosides-docusate Tablet 1 TAB PO (09:54)
[2023-01-12] MEDS: pantoprazole DR 40 mg Tablet PO ×2 (09:54→18:00)
[2023-01-12] MEDS: amlodipine 5 mg Tablet PO (09:55)
[2023-01-12] MEDS: amoxicillin-clav 875-125 mg Tablet 1 TAB PO ×2 (09:55→18:00)
[2023-01-12] MEDS: risperiDONE 1 mg Tablet 2 MG PO ×2 (09:55→18:00)
[2023-01-12] MEDS: lisinopril 20 mg Tablet PO (09:55)
[2023-01-12] MEDS: albuterol 2.5 mg/3 mL Neb INHALATION (10:19)
[2023-01-12] MEDS: budesonide 0.5 mg/2 mL Neb INHALATION (10:19)
[2023-01-12] MEDS: ALPRAZolam 0.5 mg Tablet 1 MG PO ×2 (10:57→22:12)
[2023-01-12 14:00] VITALS: BP 122/86; PULSE 112; PULSE 124; RESP 16; RESP 18; TEMP 36.6; O2SAT 83; O2SAT 95
--- NOTE | 2023-01-12 14:21 | PM.PN ---
Subjective Subjective: No overnight events Vitals/I&O/Wt Last Vital Signs Temp 98.2 F 01/11/23 21:49 Pulse 112 H 01/12/23 14:00 Resp 18 01/12/23 14:00 BP 150/95 01/11/23 21:49 Pulse Ox 83 L 01/12/23 14:00 O2 Del Method 01/12/23 14:00 O2 Flow Rate 2 01/11/23 15:40 FiO2 30 01/11/23 12:00 01/11/23 01/12/23 01/12/23 22:59 06:59 14:59 Intake Total 400 / 1200 Output Total 350 / 3000 Balance 50 / -1800 Weight last 48 hrs Weight 85.729 kg Weight 85.956 kg Physical Exam Narrative: Pleasant cooperative S1, S2 Currently on room air Awake and alert Nonfocal neuro exam Data 01/12/23 08:00 01/12/23 08:00 A&P Assessment and plan (1) Opiate abuse, episodic: (2) Overdose: (3) Near- experience: (4) Acute hypoxemic respiratory failure: (5) Hyperammonemia: (6) Diplopia: (7) Exophthalmos: (8) Positive hepatitis C antibody test: Plan Patient will require CPAP for his sleep apnea Patient is medically cleared to stay at stress unit, Medicine team will sign off Please call with any questions Overdose on methadone: No active signs of withdrawal Hypoxic hypercapnic respite failure: Improved with BiPAP Attestations Medical Necessity Statement*: As per NPU Diagnoses Opiate abuse, episodic F11.10 Overdose T50.901A Near- experience Z78.9 Acute hypoxemic respiratory failure J96.01 Hyperammonemia E72.20 Diplopia H53.2 Exophthalmos H05.20 Positive hepatitis C antibody test R76.8
--- NOTE | 2023-01-12 17:18 | PC.NURSE ---
PT SPO2 DROPPED EARLIER THIS SHIFT WENT DOWN TO 82% WHEN SLEEPING. PT WAS AWAKENED AND SPO2 WENT UP TO 91-95% ON RA. GAVE ORDER TO START CPAP AT HS RESPIRATORY TO TITRATE. ORDERS PLACED. PT NOTIFIED AND EDUCATION GIVEN. PT STATES HE WILL WEAR THE CPAP IF NEEDED. DR. WHITE AND RN LET PT KNOW IT WAS NEEDED. ALL QUESTIONS ANSWERED AND SUPPORT VOICED.
[2023-01-12 17:33] VITALS: PULSE 108; RESP 20; O2SAT 95
[2023-01-12 17:37] VITALS: PULSE 105
[2023-01-12] MEDS: quetiapine 100 mg Tablet 200 MG PO (21:56)
[2023-01-12 22:00] VITALS: RESP 18; O2SAT 90
[2023-01-12] MEDS: acetaminophen 325 mg Tablet 650 MG PO (22:12)
[2023-01-12 23:07] VITALS: PULSE 72; RESP 16; O2SAT 95
--- NOTE | 2023-01-13 03:34 | PC.NURSE ---
called just after 2200, wanted to know his discharge plan and if he was going to [facility], advised her to call during dayshift and RN would pass the the information request at shift change, verbalized understanding. Pt was awake, anxious, at nurse's station requesting his Xanax.
[2023-01-13 06:00] VITALS: BP 108/70; PULSE 94; RESP 18; O2SAT 91
[2023-01-13] MEDS: risperiDONE 1 mg Tablet 2 MG PO ×2 (11:29→17:18)
[2023-01-13] MEDS: amlodipine 5 mg Tablet PO (11:29)
[2023-01-13] MEDS: gabapentin 300 mg Capsule 600 MG PO ×3 (11:29→21:33)
[2023-01-13] MEDS: pantoprazole DR 40 mg Tablet PO ×2 (11:30→17:18)
[2023-01-13] MEDS: amoxicillin-clav 875-125 mg Tablet 1 TAB PO ×2 (11:30→17:17)
[2023-01-13] MEDS: lisinopril 20 mg Tablet PO (11:30)
[2023-01-13] MEDS: ALPRAZolam 0.5 mg Tablet 1 MG PO ×2 (11:30→19:40)
[2023-01-13] MEDS: lactulose oral liq 20 gm/30 mL UDC 10 GM PO (11:31)
[2023-01-13] MEDS: sennosides-docusate Tablet 1 TAB PO (11:31)
[2023-01-13 14:00] VITALS: BP 116/78; PULSE 122; RESP 18; TEMP 36.8; O2SAT 99
[2023-01-13 15:41] VITALS: PULSE 110; RESP 18; O2SAT 99
[2023-01-13] MEDS: albuterol 2.5 mg/3 mL Neb INHALATION (15:41)
[2023-01-13 15:46] VITALS: PULSE 130
--- NOTE | 2023-01-13 16:23 | W.PM.NPUPNS ---
Subjective NPU Subjective: Patient presented today reporting that things are going fine. He continues to ask about the possibility of discharge to spend time with his . Today the reason for wanting to discharge as there car is working and she needs help to fix it. We continue to discuss the danger of discharge prior to his rehab stent. We continue to discuss his interest in some benzodiazepines and the ones that he has and the fact that we need to figure out what [facility]'s position will be on those medications. Mental Status Exam MSE Comments: This is an overweight white male in hospital scrubs with limited grooming and adequate eye contact. No abnormal movements psychomotor retardation. Cooperative with exam in no acute distress. Speech was decreased rate and volume with some mild dysarthria. Mood described as better, affect congruent. Thought process organized. Thought content: Patient denied suicidal or homicidal ideation, there were no delusions reported or noted, he denied any auditory or visual hallucinations. Attention and concentration appeared intact and memory appeared reliable but none were formally tested. He is alert and oriented x3. Insight and judgment appeared limited impulse control is impaired. Vitals/I&O/Wt Last Vital Signs Temp 98.3 F 01/13/23 14:00 Pulse 130 H 01/13/23 15:46 Resp 18 01/13/23 15:41 BP 116/78 01/13/23 14:00 Pulse Ox 99 01/13/23 15:41 O2 Del Method 01/13/23 15:41 O2 Flow Rate 2 01/13/23 08:00 FiO2 21 01/12/23 23:07 01/13/23 01/13/23 01/13/23 06:59 14:59 22:59 Intake Total 400 / 400 Output Total 1150 / 1150 Balance -750 / -750 Weight last 48 hrs Weight 85.729 kg Data NPU 01/12/23 08:00 01/12/23 08:00 A&P Assessment and plan (1) Opiate abuse, episodic: (2) Overdose: (3) Exophthalmos: (4) Hyperthyroidism: (5) Schizoaffective disorder: (6) Hepatitis C: (7) Unspecified personality disorder: Plan This is a 37 year old male with a history of schizoaffective disorder and addiction issues who was admitted to the ICU after concerns for overdose 96-hour hold now transferred to the neuropsychiatric unit with plans for inpatient rehab. RECOMMENDATION AND PLAN: 1.? Continue current medication.? 2.? Continue every 15 minute checks for safety. 3.? Encourage individual, group and milieu therapies. 4.? Encourage sober living treatment after discharge at the highest level of care to which he is willing to commit. Evaluating for possible bed date in the next few days at [facility]. 5. Initiate 21-day hold. Plan for discharge on Tuesday. Involuntary Hold Information 96 Hour Hold: 96 Hour Involuntary Admission: Yes Attestations NPU Medical Necessity Statement*: Inpatient psychiatric hospitalization is medically necessary and the clinically appropriate intervention at this time. Likely length of stay is 2-4 days. Coding Level of Care Code Acute Code for [facility] Fwd Diagnoses Opiate abuse, episodic F11.10 Overdose T50.901A Exophthalmos H05.20 Hyperthyroidism E05.90 Schizoaffective disorder F25.9 Hepatitis C B19.20 Unspecified personality disorder F60.9
[2023-01-13] MEDS: atenolol 50 mg Tablet PO (19:39)
[2023-01-13] MEDS: quetiapine 100 mg Tablet 200 MG PO (21:33)
[2023-01-13 22:00] VITALS: BP 113/80; PULSE 116; RESP 19; TEMP 36.6; O2SAT 94
[2023-01-13] MEDS: doxepin 10 mg Capsule PO (22:56)
[2023-01-13 23:40] VITALS: PULSE 116; RESP 16; O2SAT 94
[2023-01-14] VITALS (8 sets, daily range): BP systolic 94–126; BP diastolic 62–87; PULSE 78–110; RESP 16–20; TEMP 36.6–37; O2SAT 92–95
[2023-01-14] MEDS: ibuprofen 600 mg Tablet PO ×2 (02:33→21:39)
--- NOTE | 2023-01-14 05:51 | PC.NURSE ---
pt refusing CPAP approximately 0300, RT notified, pt has been sleeping, no distress noted.
[2023-01-14] MEDS: risperiDONE 1 mg Tablet 2 MG PO ×2 (09:30→17:22)
[2023-01-14] MEDS: lactulose oral liq 20 gm/30 mL UDC 10 GM PO (09:30)
[2023-01-14] MEDS: nicotine 21 mg Patch 1 PATCH TRANSDERMA (09:30)
[2023-01-14] MEDS: gabapentin 300 mg Capsule 600 MG PO ×3 (09:31→21:39)
[2023-01-14] MEDS: sennosides-docusate Tablet 1 TAB PO (09:31)
[2023-01-14] MEDS: amoxicillin-clav 875-125 mg Tablet 1 TAB PO ×2 (09:31→17:21)
[2023-01-14] MEDS: amlodipine 5 mg Tablet PO (09:31)
[2023-01-14] MEDS: atenolol 50 mg Tablet PO ×2 (09:32→17:22)
[2023-01-14] MEDS: cetirizine 10 mg Tablet PO (09:32)
[2023-01-14] MEDS: pantoprazole DR 40 mg Tablet PO ×2 (09:32→17:22)
[2023-01-14] MEDS: duloxetine 20 mg Capsule PO ×2 (09:32→17:22)
[2023-01-14] MEDS: lisinopril 20 mg Tablet PO (09:32)
[2023-01-14] MEDS: ALPRAZolam 0.5 mg Tablet 1 MG PO ×2 (10:54→21:40)
--- NOTE | 2023-01-14 13:08 | P.NPUPN_ITS ---
Subjective NPU Subjective: Patient presented today reporting that he was hopeful that he could help his with her car. However during the day he was served for his 21-day hold hearing. The hearing is to be 01/17/2023 at 2:45 PM. He was also served a PFA by his and he had a major meltdown falling to the floor and despair. He continued to discuss the plan for him to discharge on Tuesday to [facility] inpatient rehab. And that his focus should be on working on his addiction and recovery so that he can function in a way that his is hoping for. Mental Status Exam MSE Comments: This is an overweight white male in hospital scrubs with limited grooming and adequate eye contact. Significant exophthalmos. No abnormal movements except for some period of psychomotor agitation after the news. Cooperative with exam in moderate distress at times. Speech was decreased rate and volume with some mild dysarthria. Mood described as sad, affect congruent and distraught. Thought process organized. Thought content: Patient denied suicidal or homicidal ideation, there were no delusions reported or noted, he denied any auditory or visual hallucinations. Attention and concentration appeared intact and memory appeared reliable but none were formally tested. He is alert and oriented x3. Insight and judgment appeared limited impulse control is impaired. Vitals/I&O/Wt Last Vital Signs Temp 98.6 F 01/14/23 06:00 Pulse 81 01/14/23 08:00 Resp 16 01/14/23 08:00 BP 106/64 01/14/23 06:00 Pulse Ox 94 01/14/23 08:00 O2 Del Method 01/14/23 08:00 O2 Flow Rate 2 01/14/23 08:00 FiO2 21 01/13/23 23:40 Data NPU 01/12/23 08:00 01/12/23 08:00 A&P Assessment and plan (1) Opiate abuse, episodic: (2) Overdose: (3) Exophthalmos: (4) Hyperthyroidism: (5) Schizoaffective disorder: (6) Hepatitis C: (7) Unspecified personality disorder: Plan This is a 37 year old male with a history of schizoaffective disorder and addiction issues who was admitted to the ICU after concerns for overdose 96-hour hold now transferred to the neuropsychiatric unit with plans for inpatient rehab. RECOMMENDATION AND PLAN: 1.? Continue current medication.? 2.? Continue every 15 minute checks for safety. 3.? Encourage individual, group and milieu therapies. 4.? Encourage sober living treatment after discharge at the highest level of ca re to which he is willing to commit. Evaluating for possible bed date in the next few days at [facility]. 5. 21-day hold hearing 01/17/2023 at 2:45 PM. Plan for discharge on Tuesday. Involuntary Hold Information 96 Hour Hold: 96 Hour Involuntary Admission: Yes Attestations NPU Medical Necessity Statement*: Inpatient psychiatric hospitalization is medically necessary and the clinically appropriate intervention at this time. We will monitor/initiate medications and make changes as indicated. Likely length of stay is 3 days. Coding Level of Care Code Acute Code for [facility] Fwd Diagnoses Opiate abuse, episodic F11.10 Overdose T50.901A Exophthalmos H05.20 Hyperthyroidism E05.90 Schizoaffective disorder F25.9 Hepatitis C B19.20 Unspecified personality disorder F60.9
[2023-01-14] MEDS: budesonide 0.5 mg/2 mL Neb INHALATION (21:23)
[2023-01-14] MEDS: albuterol 2.5 mg/3 mL Neb INHALATION (21:23)
[2023-01-14] MEDS: quetiapine 100 mg Tablet 200 MG PO (21:39)
[2023-01-15] VITALS (7 sets, daily range): BP systolic 86–124; BP diastolic 55–78; PULSE 66–94; RESP 15–16; TEMP 36.4–36.6; O2SAT 94–97
[2023-01-15] MEDS: amlodipine 5 mg Tablet PO (08:53)
[2023-01-15] MEDS: gabapentin 300 mg Capsule 600 MG PO ×3 (08:53→19:45)
[2023-01-15] MEDS: amoxicillin-clav 875-125 mg Tablet 1 TAB PO ×2 (08:53→17:47)
[2023-01-15] MEDS: sennosides-docusate Tablet 1 TAB PO (08:54)
[2023-01-15] MEDS: lisinopril 20 mg Tablet PO (08:54)
[2023-01-15] MEDS: atenolol 50 mg Tablet PO ×2 (08:54→17:48)
[2023-01-15] MEDS: pantoprazole DR 40 mg Tablet PO ×2 (08:54→17:48)
[2023-01-15] MEDS: duloxetine 20 mg Capsule PO ×2 (08:54→17:47)
[2023-01-15] MEDS: risperiDONE 1 mg Tablet 2 MG PO ×2 (08:54→17:48)
[2023-01-15] MEDS: cetirizine 10 mg Tablet PO (08:54)
[2023-01-15] MEDS: ALPRAZolam 0.5 mg Tablet 1 MG PO ×2 (09:01→17:58)
[2023-01-15] MEDS: nicotine 21 mg Patch 1 PATCH TRANSDERMA (10:01)
--- NOTE | 2023-01-15 10:15 | W.PM.NPUPNS ---
Subjective NPU Subjective: Patient presented today reporting that he has accepted that he will not be going to his significant other anytime soon. He was tearful and describing the frustration surrounding this situation. We discussed the importance of him focusing on his recovery if he has any hopes of resuming that relationship. We discussed the risks, benefits and alternatives of increasing his Seroquel and he understood and agreed to proceed as is documented in this note. We continued to discuss him going to [facility] on Tuesday. Mental Status Exam MSE Comments: This is an overweight white male in hospital scrubs with limited grooming and adequate eye contact. Significant exophthalmos. No abnormal movements except for mild psychomotor retardation. Cooperative with exam in mild distress at times. Speech was decreased rate and volume with some mild dysarthria. Mood described as a little better, affect congruent and occasionally distraught. Thought process organized. Thought content: Patient denied suicidal or homicidal ideation, there were no delusions reported or noted, he denied any auditory or visual hallucinations. Attention and concentration appeared intact and memory appeared reliable but none were formally tested. He is alert and oriented x3. Insight and judgment appeared limited impulse control is impaired. Vitals/I&O/Wt Last Vital Signs Temp 97.5 F L 01/15/23 06:00 Pulse 94 01/15/23 07:40 Resp 15 01/15/23 07:40 BP 97/72 01/15/23 06:00 Pulse Ox 96 01/15/23 07:40 O2 Del Method 01/15/23 07:40 O2 Flow Rate 97 01/15/23 08:00 FiO2 21 01/14/23 23:06 01/14/23 01/15/23 01/15/23 22:59 06:59 14:59 Intake Total 400 / 400 Output Total 1150 / 1150 Balance -750 / -750 Data NPU 01/12/23 08:00 01/12/23 08:00 A&P Assessment and plan (1) Opiate abuse, episodic: (2) Overdose: (3) Exophthalmos: (4) Hyperthyroidism: (5) Schizoaffective disorder: (6) Hepatitis C: (7) Unspecified personality disorder: Plan This is a 37 year old male with a history of schizoaffective disorder and addiction issues who was admitted to the ICU after concerns for overdose 96-hour hold now transferred to the neuropsychiatric unit with plans for inpatient rehab. RECOMMENDATION AND PLAN: 1.? Continue current medication.? Increase Seroquel to 300 mg p.o. nightly. 2.? Continue every 15 minute checks for safety. 3.? Encourage individual, group and milieu therapies. 4.? Encourage sober living treatment after discharge at the highest level of care to which he is willing to commit. Evaluating for possible bed date in the next few days at [facility]. 5. 21-day hold hearing 01/17/2023 at 2:45 PM. Plan for discharge on Tuesday. Involuntary Hold Information 96 Hour Hold: 96 Hour Involuntary Admission: Yes Attestations NPU Medical Necessity Statement*: Inpatient psychiatric hospitalization is medically necessary and the clinically appropriate intervention at this time. We will monitor/initiate medications and make changes as indicated. Likely length of stay is 2 days. Coding Level of Care Code Acute Code for g Fwd Diagnoses Opiate abuse, episodic F11.10 Overdose T50.901A Exophthalmos H05.20 Hyperthyroidism E05.90 Schizoaffective disorder F25.9 Hepatitis C B19.20 Unspecified personality disorder F60.9
[2023-01-15] MEDS: ibuprofen 600 mg Tablet PO (17:58)
[2023-01-15] MEDS: quetiapine 300 mg Tablet PO (19:45)
[2023-01-16] VITALS (7 sets, daily range): BP systolic 104–110; BP diastolic 66–71; PULSE 65–77; RESP 16–18; TEMP 36.7–36.8; O2SAT 95–97
[2023-01-16] MEDS: amoxicillin-clav 875-125 mg Tablet 1 TAB PO ×2 (09:23→17:45)
[2023-01-16] MEDS: pantoprazole DR 40 mg Tablet PO ×2 (09:24→17:44)
[2023-01-16] MEDS: duloxetine 20 mg Capsule PO ×2 (09:24→17:44)
[2023-01-16] MEDS: lisinopril 20 mg Tablet PO (09:24)
[2023-01-16] MEDS: sennosides-docusate Tablet 1 TAB PO (09:24)
[2023-01-16] MEDS: risperiDONE 1 mg Tablet 2 MG PO ×2 (09:24→17:44)
[2023-01-16] MEDS: atenolol 50 mg Tablet PO ×2 (09:24→17:44)
[2023-01-16] MEDS: cetirizine 10 mg Tablet PO (09:24)
[2023-01-16] MEDS: gabapentin 300 mg Capsule 600 MG PO ×3 (09:24→20:32)
[2023-01-16] MEDS: amlodipine 5 mg Tablet PO (09:25)
[2023-01-16] MEDS: nicotine 21 mg Patch 1 PATCH TRANSDERMA (09:25)
--- NOTE | 2023-01-16 09:33 | P.NPUPN_ITS ---
Subjective NPU Subjective: Patient presented today reporting that he did fine with the increase in Seroquel last night. We had a extended discussion about Suboxone, Xanax, other anxiety medications, other sleep medications but continues to stress importance of making sure currently was comfortable with his medication r egimen. We discussed the fact to talk with him in the morning about their thoughts about his medications but that may be needed to make with him do not mess with anxiety medication especially increasing any controlled substance. Mental Status Exam MSE Comments: This is an overweight white male in hospital scrubs with limited grooming and adequate eye contact. Significant exophthalmos. No abnormal mo vements except for mild psychomotor retardation. Cooperative with exam in mild distress at times. Speech was decreased rate and volume with some mild dysarthria. Mood described as a little better, affect congruent and occasionally distraught. Thought process organized. Thought content: Patient denied suicidal or homicidal ideation, there were no delusions reported or noted, he denied any auditory or visual hallucinations. Attention and concentration appeared intact and memory appeared reliable but none were formally tested. He is alert and oriented x3. Insight and judgment appeared limited impulse control is impaired. Vitals/I&O/Wt Last Vital Signs Temp 98.2 F 01/16/23 06:00 Pulse 65 01/16/23 06:00 Resp 16 01/15/23 15:38 BP 104/67 01/16/23 06:00 Pulse Ox 95 01/16/23 06:00 O2 Del Method 01/16/23 06:00 O2 Flow Rate 97 01/15/23 08:00 FiO2 21 01/14/23 23:06 01/15/23 01/16/23 01/16/23 22:59 06:59 14:59 Intake Total 400 / 400 Output Total 1150 / 1150 Balance -750 / -750 Weight last 48 hrs Weight 82.611 kg Data NPU 01/12/23 08:00 01/12/23 08:00 A&P Assessment and plan (1) Opiate abuse, episodic: (2) Overdose: (3) Exophthalmos: (4) Hyperthyroidism: (5) Schizoaffective disorder: (6) Hepatitis C: (7) Unspecified personality disorder: Plan This is a 37 year old male with a history of schizoaffective disorder and addiction issues who was admitted to the ICU after concerns for overdose 96-hour hold now transferred to the neuropsychiatric unit with plans for inpatient rehab. RECOMMENDATION AND PLAN: 1.? Continue current medication.? Increased Seroquel to 300 mg p.o. nightly. Consider increasing Seroquel at night. 2.? Continue every 15 minute checks for safety. 3.? Encourage individual, group and milieu therapies. 4.? Encourage sober living treatment after discharge at the highest level of care to which he is willing to commit. Evaluating for possible bed date in the next few days at [facility]. 5. 21-day hold hearing 01/17/2023 at 2:45 PM. Plan for discharge on Tuesday. Involuntary Hold Information 96 Hour Hold: 96 Hour Involuntary Admission: Yes Attestations NPU Medical Necessity Statement*: Inpatient psychiatric hospitalization is medic ally necessary and the clinically appropriate intervention at this time. We will monitor/initiate medications and make changes as indicated. Tentative plan for discharge tomorrow. Coding Level of Care Code Acute Code for [facility] Fwd Diagnoses Opiate abuse, episodic F11.10 Overdose T50.901A Exophthalmos H05.20 Hyperthyroidism E05.90 Schizoaffective disorder F25.9 Hepatitis C B19.20 Unspecified personality disorder F60.9
[2023-01-16] MEDS: ALPRAZolam 0.5 mg Tablet 1 MG PO ×2 (09:37→17:53)
[2023-01-16] MEDS: ibuprofen 600 mg Tablet PO ×2 (13:43→20:38)
[2023-01-16] MEDS: hyDROXYzine 25 mg Capsule 50 MG PO (13:43)
[2023-01-16] MEDS: acetaminophen 325 mg Tablet 650 MG PO (15:36)
[2023-01-16] MEDS: budesonide 0.5 mg/2 mL Neb INHALATION (20:20)
[2023-01-16] MEDS: quetiapine 300 mg Tablet PO (20:31)
[2023-01-16] MEDS: quetiapine 100 mg Tablet PO (20:32)
[2023-01-17] MEDS: hyDROXYzine 25 mg Capsule 50 MG PO (00:17)
[2023-01-17 06:00] VITALS: BP 97/60; RESP 20; O2SAT 99
[2023-01-17] MEDS: amoxicillin-clav 875-125 mg Tablet 1 TAB PO (08:32)
[2023-01-17] MEDS: gabapentin 300 mg Capsule 600 MG PO (08:32)
[2023-01-17] MEDS: atenolol 50 mg Tablet PO (08:32)
[2023-01-17] MEDS: nicotine 21 mg Patch 1 PATCH TRANSDERMA (08:33)
[2023-01-17] MEDS: duloxetine 20 mg Capsule PO (08:33)
[2023-01-17] MEDS: amlodipine 5 mg Tablet PO (08:33)
[2023-01-17] MEDS: cetirizine 10 mg Tablet PO (08:33)
[2023-01-17] MEDS: lactulose oral liq 20 gm/30 mL UDC 10 GM PO (08:33)
[2023-01-17] MEDS: lisinopril 20 mg Tablet PO (08:33)
[2023-01-17] MEDS: sennosides-docusate Tablet 1 TAB PO (08:33)
[2023-01-17] MEDS: pantoprazole DR 40 mg Tablet PO (08:33)
[2023-01-17] MEDS: risperiDONE 1 mg Tablet 2 MG PO (08:33)
[2023-01-17] MEDS: ALPRAZolam 0.5 mg Tablet 1 MG PO (08:41)
[2023-01-17] MEDS: budesonide 0.5 mg/2 mL Neb INHALATION (08:49)
[2023-01-17 08:50] VITALS: PULSE 83; RESP 20; O2SAT 98
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
[2023-01-17 11:30] VITALS: PULSE 83; RESP 20; O2SAT 98
[2023-01-17 11:35] VITALS: BP 136/79; PULSE 83; RESP 20; O2SAT 98
--- NOTE | 2023-01-17 12:21 | PC.NURSE ---
pt left via [facility], discharge instruction discussed with patient pt states understanding and compliance.
== END 2023-01-17 12:22 | DRG 917 ==
LOC: ER 18:09 → ICU 19:29 → NP 01-11 20:43
PROVIDERS: Emergency Medicine; Admitting Provider Internal Medicine; Emergency Provider Emergency Medicine; Visit Provider Internal Medicine
DX: T40.601A Poisoning by unspecified narcotics, accidental (unintentional), initial encounter (principal); J96.01 Acute respiratory failure with hypoxia; F11.10 Opioid abuse, uncomplicated; F41.1 Generalized anxiety disorder; K74.60 Unspecified cirrhosis of liver; B19.20 Unspecified viral hepatitis C without hepatic coma; M51.17 Intervertebral disc disorders with radiculopathy, lumbosacral region; M43.17 Spondylolisthesis, lumbosacral region; F43.12 Post-traumatic stress disorder, chronic; Z98.1 Arthrodesis status; F17.200 Nicotine dependence, unspecified, uncomplicated; H05.20 Unspecified exophthalmos; F20.9 Schizophrenia, unspecified; H53.2 Diplopia; E05.90 Thyrotoxicosis, unspecified without thyrotoxic crisis or storm
CPT/HCPCS: 36415; 36600; 70450; 71045; 80048; 80051; 80053; 80306; 80307; 82140; 82330; 82803; 82805; 83605; 83735; 84100; 85025; 85378; 93005; 94640; 94660; 94664; 96361; 96372; 96374; 97165; 99238; 99285; J2060; J2310; J2405; J7030; J7608; J7611; J7613; J7626

== ENCOUNTER 2023-02-22 14:26 | Outpatient (CLI) | payer MEDICAID, SELFPAY ==
--- NOTE | 2023-02-22 14:50 | XR_ITS ---
WS: [id number] EXAMINATION: XR chest 2V* [id number] REASON FOR EXAM: MILD INTERMITTENT ASTHMA COMPARISON: 01/09/2023 ORDER DATE: 02/22/2023 2:50 PM FINDINGS: The lungs are clear of infiltrate. The cardiac and mediastinal outlines are unremarkable. There ar e no significant pleural effusions . No significant abnormalities are noted in the spine or remainder of the bony thorax. XR/XR chest 2V* [id number] IMPRESSION: NO ACUTE PULMONARY CHANGE.
== END 2023-02-22 14:27 | disposition home or self-care (01) ==
PROVIDERS: Visit Provider Nurse Practitioner Family
DX: J45.20 Mild intermittent asthma, uncomplicated (principal)
CPT/HCPCS: 71046

== ENCOUNTER 2023-03-06 17:27 | Emergency (ER) | payer MEDICAID, SELFPAY ==
[2023-03-06 17:39] VITALS: BP 136/94; PULSE 86; RESP 16; TEMP 36.4; O2SAT 97; BMI 25.8
[2023-03-06 18:00] VITALS: BP 136/90; PULSE 80; RESP 16; O2SAT 92
[2023-03-06] MEDS: ondansetron 2 mg/ML SDV 2 mL 8 MG IVP (18:55)
[2023-03-06] MEDS: sodium chloride 0.9% 1,000 ML 999 ML IV (18:55)
[2023-03-06] MEDS: ketorolac 30 mg/mL INJ IVP (18:55)
[2023-03-06 18:59] LABS: Basophils % 0.4 %; Eosinophils # 0.3 10^3/uL (0.0-0.8); Eosinophils % 3.1 %; Hematocrit 39.2 % (42.0-52.0); Hemoglobin 12.7 g/dL (11.7-16.6); Mean Corpuscular HGB Conc 32.4 g/dL (30.0-36.0); Mean Corpuscular Volume 89.5 fl (80-94); Mean Platelet Volume 8.6 fL (7.4-10.4); Monocytes % 9.3 %; Neutrophils # 5.94 10^3/uL (1.8-7.7); Neutrophils % 57.7 %; Nucleated Red Blood Cells % 0 %; Platelet Count 370 10^3/cmm (130-400); Red Blood Count 4.38 10^6/uL (4.1-5.3); Red Cell Distribution Width 13.4 % (12.1-15.1); White Blood Count 10.3 10^3/uL (4.0-10.0)
[2023-03-06 19:00] VITALS: BP 137/90; PULSE 82; RESP 16; O2SAT 92
[2023-03-06 19:07] LABS: Alanine Aminotransferase 12 U/L (0-41); Albumin Level 4.2 g/dL (3.5-5.2); Alkaline Phosphatase 115 U/L (40-130); Anion Gap 11.9 (5-19); Aspartate Amino Transferase 12 U/L (0-40); Blood Urea Nitrogen 8 mg/dL (6-20); Calcium 8.8 mg/dL (8.5-10.5); Carbon Dioxide 27 mmol/L (22-29); Chloride 93 mmol/L (98-107); Creatinine Clr Calc Pharmacy 129.7913; Globulin 2.9 g/dL (1.3-4.6); Glomerular Filtration Rate 109.4 mL/min (90-130); Glucose 85 mg/dL (65-115); Osmolality Calculated 264 mOsm/kg (285-295); Potassium 3.9 mmol/L (3.5-5.1); Sodium 128 mmol/L (136-145); Total Bilirubin 0.3 mg/dL (0.15-1.2); Total Protein 7.1 g/dL (6.6-8.7)
[2023-03-06 19:20] LABS: Add Urine Microscopic? NO; Charge for UA Resulting for Rev
[2023-03-06 19:39] LABS: Thyroid Stimulating Hormone 0.64 uIU/mL (0.27-4.20)
[2023-03-06 19:47] LABS: Ammonia 21 umol/L (16-60)
[2023-03-06 19:47] LABS: Bilirubin Urine Neg (Negative); Blood Urine Neg (Negative); Glucose Urine UA Norm (Normal); Ketones Urine Negative (Negative); Leukocyte Esterase Urine Negative (Negative); Nitrate Urine Negative (Negative); Protein Urine Neg (Negative); Specific Gravity, Urine 1.015 (1.005-1.030); Sulfosalicylic Acid Urine Negative (Negative); Urine Appearance Clear (CLEAR); Urine Color Yellow (Yellow); Urobilinogen Urine Norm (Negative); pH Urine 8 (5-7)
[2023-03-06 19:57] LABS: THC Screen Urine Positive (Negative)
[2023-03-06 19:58] LABS: Amphetamines Screen Urine Negative (Negative); Barbiturates Screen Urine Negative (Negative); Benzodiazepines Screen Urine Positive (Negative); Cocaine Screen Urine Negative (Negative); Opiate Screen Urine Negative (Negative); PCP Screen Urine Negative (Negative)
--- NOTE | 2023-03-06 20:46 | ED_ITS ---
HPI - Nausea/Vomiting/Diarrhea General: Chief complaint: Nausea/Vomiting/Diarrhea Stated complaint: N/V Time Seen by Provider: 03/06/23 18:28 Source: patient History of Present Illness: 37-year-old male well-known to the emergency department. He presents with headache, nausea, and anxiousness. He recently quit taking his Suboxone, about 5 days ago. He has noticed a worsening in his symptoms since that time. He is having night sweats. He also has diarrhea. MD elicited complaint: nausea and other Onset (ago): day(s) Associated nausea: Yes Associated abdominal pain: Yes Location of pain: Diffuse Exacerbating factors: eating Associated symtoms: Reports anxiety, diaphoresis, decreased urine output, dizziness, headache(s), anorexia and nausea; Denies change in vision, chest pain, cough, fevers/chills or short of breath Review of Systems Const: Reports: chills, night sweats and diaphoresis; Denies: fever(s) Eyes: Denies: change in vision ENMT: Denies: throat pain Card: Denies: chest pain Resp: Denies: dyspnea, productive cough or non-productive cough GI: Reports: abdominal pain, nausea and vomiting Skin/Breast: Denies: rash Neuro: Reports: headache(s) and dizziness Psych: Reports: anxiety PFSH ED PFSH: Medical History (Updated 03/06/23 @ 21:18 by Clement Garcia DO) Generalized anxiety disorder Hepatitis C Intervertebral disc disorder with radiculopathy of lumbosacral region Post-traumatic stress disorder, chronic Spondylolisthesis, lumbosacral region Surgical History History of appendectomy History of fusion of cervical spine 2009 Dr. Beth Andino C5-C6 ACDFF History of knee surgery Family History Family/Other Heart disease Grandfather Dementia Social History Smoking and tobacco status: current every day smoker Alcohol intake: current Substance/Drug Use: current Household members: spouse Marital status: Current occupational status: unemployed Physical Exam Const: COMMON NORMALS: no acute distress GENERAL APPEARANCE: cooperative; not ill appearing and not frail appearing HENMT: COMMON NORMALS: normocephalic, atraumatic and Normal external nose present HEAD & SCALP: normocephalic and atraumatic FACE & SINUS: normal facial exam and face symmetric NOSE: Normal external nose present Eye: COMMON NORMALS: Equal, round and reactive pupils present and EOMs intact bilaterally PUPIL: Yes Equal, round and reactive pupils present Neck/C-Spine: GENERAL: Yes trachea midline Chest: CHEST: Yes Symmetrical chest wall rise Resp: COMMON NORMALS: normal respiratory effort, No retractions, No use of accessory muscles and clear to auscultation bilaterally AUSCULTATION: clear to auscultation bilaterally Cardio: COMMON NORMALS: regular rate and regular rhythm RATE: regular rate RHYTHM: regular rhythm GI: COMMON NORMALS: Normal to inspection, nondistended, normoactive bowel sounds present Extremity: COMMON NORMALS: no pedal edema Neuro: ANA MARIA COMA SCALE: document GCS findings [place] coma scale eye opening: Spontaneous [place] coma scale verbal response: Orientated [place] coma scale motor response: Obey commands Ana [place] coma scale total score: 15 SENSORY EXAM: Yes extremities (intact) Psych: COMMON NORMALS: speech normal SPEECH: Yes normal speech Skin: COMMON NORMALS: no rashes or lesions noted GENERAL SKIN EXAM: no rashes or lesions noted Course Vital Signs: Vital signs: Vital Signs Temperature 97.5 F L 03/06/23 17:39 Pulse Rate 82 03/06/23 19:00 Respiratory Rate 16 03/06/23 19:00 Blood Pressure 137/90 03/06/23 19:00 Pulse Oximetry 92 03/06/23 19:00 Oxygen Delivery Me thod Room Air 03/06/23 17:39 MDM - Nausea/Vomiting/Diarrhea Medical Decision Making Patient is quite stable medically. Vitals are normal. White blood cell count is 10. Hemoglobin is 13 chloride is 93 potassium 3.9. Urinalysis is not remarkable. Urine drug screen positive for benzodiazepines and marijuana. Suspect that a lot of his symptoms are related to anxiety, and possibly Suboxone withdrawal. He is obviously already taking benzodiazepines which can help. Could add clonidine as an adjunct. We will do so. Close outpatient follow-up. Lab Data 03/06/23 18:02 03/06/23 18:02 Laboratory Results WBC 10.3 10^3/uL (4.0-10.0) H 03/06/23 18:02 RBC 4.38 10^6/uL (4.1-5.3) 03/06/23 18:02 Hgb 12.7 g/dL (11.7-16.6) 03/06/23 18:02 Hct 39.2 % (42.0-52.0) L 03/06/23 18:02 MCV 89.5 fl (80-94) 03/06/23 18:02 MCH 29.0 pg (28.0-34.0) 03/06/23 18:02 MCHC 32.4 g/dL (30.0-36.0) 03/06/23 18:02 RDW 13.4 % (12.1-15.1) 03/06/23 18:02 Plt Count 370 10^3/cmm (130-400) 03/06/23 18:02 MPV 8.6 fL (7.4-10.4) 03/06/23 18:02 Neut % (Auto) 57.7 % 03/06/23 18:02 Lymph % (Auto) 29.0 % 03/06/23 18:02 [place] % (Auto) 9.3 % 03/06/23 18:02 Eos % (Auto) 3.1 % 03/06/23 18:02 Baso % (Auto) 0.4 % 03/06/23 18:02 Neut # (Auto) 5.94 10^3/uL (1.8-7.7) 03/06/23 18:02 Lymph # (Auto) 3.0 10^3/uL (0.8-4.8) 03/06/23 18:02 [place] # (Auto) 1.0 10^3/uL (0.2-0.9) H 03/06/23 18:02 Eos # (Auto) 0.3 10^3/uL (0.0-0.8) 03/06/23 18:02 Baso # (Auto) 0.0 10^3/uL (0.0-0.1) 03/06/23 18:02 Nucleated RBC % (auto) 0 % 03/06/23 18:02 Nucleated RBCs # 0.0 /100WBC 03/06/23 18:02 Sodium 128 mmol/L (136-145) L 03/06/23 18:02 Potassium 3.9 mmol/L (3.5-5.1) 03/06/23 18:02 Chloride 93 mmol/L (98-107) L 03/06/23 18:02 Carbon Dioxide 27 mmol/L (22-29) 03/06/23 18:02 Anion Gap 11.9 (5-19) 03/06/23 18:02 BUN 8 mg/dL (6-20) 03/06/23 18:02 Creatinine 0.8 mg/dL (0.7-1.2) 03/06/23 18:02 GFR Calculation 109.4 mL/min (90-130) 03/06/23 18:02 Glucose 85 mg/dL (65-115) 03/06/23 18:02 Calculated Osmolality 264 mOsm/kg (285-295) L 03/06/23 18:02 Calcium 8.8 mg/dL (8.5-10.5) 03/06/23 18:02 Total Bilirubin 0.3 mg/dL (0.15-1.2) 03/06/23 18:02 AST 12 U/L (0-40) 03/06/23 18:02 ALT 12 U/L (0-41) 03/06/23 18:02 Alkaline Phosphatase 115 U/L (40-130) 03/06/23 18:02 Ammonia 21 umol/L (16-60) 03/06/23 19:15 Total Protein 7.1 g/dL (6.6-8.7) 03/06/23 18:02 Albumin 4.2 g/dL (3.5-5.2) 03/06/23 18:02 Globulin 2.9 g/dL (1.3-4.6) 03/06/23 18:02 TSH 0.64 uIU/mL (0.27-4.20) 03/06/23 18:02 Urine Color Yellow (Yellow) 03/06/23 19:03 Urine Appearance Clear (CLEAR) 03/06/23 19:03 Urine pH 8 (5-7) H 03/06/23 19:03 Ur Specific [place] 1.015 (1.005-1.030) 03/06/23 19:03 Urine Protein Neg (Negative) 03/06/23 19:03 Urine Glucose (UA) Norm (Normal) 03/06/23 19:03 Urine Ketones Negative (Negative) 03/06/23 19:03 Urine Blood Neg (Negative) 03/06/23 19:03 Urine Nitrate Negative (Negative) 03/06/23 19:03 Urine Bilirubin Neg (Negative) 03/06/23 19:03 Prot Sulfosalicylic Acd Negative (Negative) 03/06/23 19:03 Urine Urobilinogen Norm mg/dL (Negative) 03/06/23 19:03 Ur Leukocyte Esterase Negative (Negative) 03/06/23 19:03 Urine Opiates Screen Negative ng/mL (Negative) 03/06/23 19:03 Ur Barbiturates Screen Negative ng/mL (Negative) 03/06/23 19:03 Ur Phencyclidine Scrn Negative ng/mL (Negative) 03/06/23 19:03 Ur Amphetamines Screen Negative ng/mL (Negative) 03/06/23 19:03 U Benzodiazepines Scrn Positive ng/mL (Negative) H 03/06/23 19:03 Urine Cocaine Screen Negative ng/mL (Negative) 03/06/23 19:03 U Marijuana (THC) Screen Positive ng/mL (Negative) H 03/06/23 19:03 Discharge Plan Discharge Patient Disposition: Home Clinical Impression: Drug withdrawal syndrome Condition: Stable Prescriptions: New clonidine HCl 0.1 mg tablet 0.1 mg PO TID Qty: 30 0RF No Action duloxetine 60 mg capsule,delayed release(DR/EC) 60 mg PO BID hydroxyzine pamoate [Vistaril] 50 mg capsule 50 mg PO TID Rx Instructions: prn tid and at hs zinc oxide 25 % paste 1 applic topical DAILY PRN (Reason: skin irritation) Qty: 500 0RF quetiapine [Seroquel] 50 mg tablet 50 mg PO DAILY Qty: 60 0RF Xifaxan 550 mg tablet 550 mg PO BID Qty: 60 3RF albuterol sulfate [ProAir HFA] 90 mcg/actuation Hfa Aerosol Inhaler 2 puff INHALATION Q6H PRN (Reason: Shortness Of Breath) sildenafil 100 mg Tablet 100 mg PO DAILY risperidone 2 mg tablet 1 mg PO BID 30 Days Qty: 30 1RF cetirizine 10 mg Tablet 10 mg PO DAILY 30 Days Qty: 30 1RF amlodipine 5 mg Tablet 5 mg PO DAILY 30 Days Qty: 30 1RF Protonix 40 mg Tablet,Delayed Release (Dr/Ec) 40 mg PO BID 30 Days Qty: 60 1RF lisinopril 10 mg Tablet 20 mg PO DAILY 30 Days Qty: 30 1RF atenolol 50 mg Tablet 50 mg PO BID 30 Days Qty: 60 1RF Discharge Orders: Discharge ED (Routine); Ordered 03/06/23 Ordered By: Clement Garcia Referrals: Luis Angel Moya CRNA [Primary Care Provider] - Timbo Fuchs DO [Referring] - 1-3 days Discharge Diet: Advance as tolerated Discharge Activity: Increase activity as tolerated Patient Instructions: Opioid Safety, Pain Management Activity Restrictions/Additional Instructions: We suspect most of your symptoms are coming from continued withdrawal of Suboxone. Your laboratory studies were not remarkable including thyroid and ammonia levels in the ER. The medication prescribed when taken 3 times daily can help with the symptoms. Suggest you continue the medication for at least 5 days, and then stop. Follow-up with your doctor this week. Return for new or concerning symptoms. Coding Level of Care Code ED [employer] for [employer]
== END 2023-03-06 21:42 | disposition home or self-care (01) ==
PROVIDERS: Emergency Provider Emergency Medicine; PCP Nurse Anesthetist, Certified Registered
DX: F15.23 Other stimulant dependence with withdrawal (principal); Z86.19 Personal history of other infectious and parasitic diseases; F17.210 Nicotine dependence, cigarettes, uncomplicated
CPT/HCPCS: 80053; 80306; 81003; 82140; 84443; 85025; 96361; 96374; 96375; 99284; J1885; J2405; J7030